=== PATIENT | female | born 1945 | race Caucasian/White ===

== ENCOUNTER 2018-06-01 11:48 | Observation (INO) ==
[2018-06-01 12:50] LABS: Baso % (Auto) 0.7 % (0.0-2.0); Eos % (Auto) 1.2 % (0.0-4.0); Hematocrit 29.2 % (35.0-46.0); Hemoglobin 10.3 gm/dL (11.6-15.3); Lymph # (Auto) 0.5 th/mm3 (1.0-4.8); Lymph % (Auto) 17.7 % (9.0-44.0); Mean Corpuscular HGB Conc 35.3 % (32.0-36.0); Mean Corpuscular Hemoglobin 32.6 pg (27.0-34.0); Mean Corpuscular Volume 92.3 fL (80.0-100.0); Mean Platelet Volume 7.7 fL (7.0-11.0); Mono # (Auto) 0.3 th/mm3 (0.0-0.9); Mono % (Auto) 8.4 % (0.0-8.0); Neut # (Auto) 2.2 th/mm3 (1.8-7.7); Platelet Count 142 th/mm3 (150-450); Red Blood Count 3.16 mil/mm3 (4.00-5.30); Red Cell Distribution Width 17.3 % (11.6-17.2)
[2018-06-01 13:12] LABS: Alanine Aminotransferase 63 U/L (10-53); Albumin 3.6 g/dL (3.4-5.0); Anion Gap 8 meq/L (5-15); Aspartate Aminotransferase 93 U/L (15-37); Blood Urea Nitrogen 20 mg/dL (7-18); Calcium 8.2 mg/dL (8.5-10.1); Carbon Dioxide 20.9 meq/L (21.0-32.0); Chloride 107 meq/L (98-107); Glomerular Filtration Rate 44 mL/min (>89); Glucose,Random 93 mg/dL (74-106); Potassium 4.1 meq/L (3.5-5.1); Sodium 136 meq/L (136-145)
[2018-06-01 13:15] LABS: Alkaline Phosphatase 114 U/L (45-117); Total Protein 6.5 g/dL (6.4-8.2)
--- NOTE | 2018-06-01 13:39 | CT ---
EXAM DATE: 06/01/2018 1:29 PM EDT AGE/SEX: 72 years / Female INDICATIONS: Fall. Laceration to back of head. CLINICAL DATA: This is the patient's initial encounter. Patient reports that signs and symptoms have been present for 1 day and indicates a pain score of 8/10. MEDICAL/SURGICAL HISTORY: None. CABG. RADIATION DOSE: 17.77 CTDI (mGy) COMPARISON: No prior exams available for comparison. TECHNIQUE: Contiguous axial images were obtained using helical multirow detector technique. The vol umetric data was post-processed with multiplanar reconstruction in oblique axial, sagittal, and coron al planes. Using automated exposure control and adjustment of the mA and/or kV according to patient s ize, radiation dose was kept as low as reasonably achievable to obtain optimal diagnostic quality morena ges. DICOM format image data is available electronically for review and comparison. FINDINGS: No acute fracture. Grade 1 anterolisthesis of C4 on C5 likely degenerative. Moderate degenerative austin nge at C5-6-7 with mild encroachment on the lateral recesses. No prevertebral soft tissue swelling. M oderate facet arthropathy. CONCLUSION: 1. No acute findings. Moderate degenerative changes as above. Electronically signed by: Villa Burton MD 06/01/2018 1:38 PM EDT
--- NOTE | 2018-06-01 13:42 | CT ---
EXAM DATE: 06/01/2018 1:28 PM EDT AGE/SEX: 72 years / Female INDICATIONS: Fall. Laceration to back of head. CLINICAL DATA: This is the patient's initial encounter. Patient reports that signs and symptoms have been present for 1 day and indicates a pain score of 8/10. MEDICAL/SURGICAL HISTORY: None. CABG. RADIATION DOSE: 56.36 CTDI (mGy) COMPARISON: No prior exams available for comparison. TECHNIQUE: CT of the head without contrast. Using automated exposure control and adjustment of the mA and/or kV according to patient size, radiation dose was kept as low as reasonably achievable to ob tain optimal diagnostic quality images. DICOM format image data is available electronically for revi ew and comparison. FINDINGS: Cerebrum: A small subcortical hyperdensity is identified in the left parietal lobe posterior to the sylvian fissure. There is no significant mass effect or edema. Cerebral hemispheres are otherwise int act without evidence of acute infarct or additional suspicious hyperdensities. There is no evidence o f mass effect. There are no extra axial fluid collections. Patchy subcortical hypodensities present throughout the cerebral hemispheres especially within the le ft frontal region. Posterior Fossa: The cerebellum and brainstem are intact. The 4th ventricle is midline. The cerebe llopontine angle is unremarkable. Extracranial: A large cephalohematoma is seen along the left parietal bone. Significant right perior bital soft tissue swelling is identified. Skull: The calvaria is intact. No evidence of skull fracture. CONCLUSION: 1. Small hemorrhagic contusion in the left parietal lobe. 2. No evidence of extra-axial hemorrhage or significant mass effect. 3. Large left parietal cephalohematoma. 4. Periventricular cerebral white matter hypodensity characteristic of chronic microvascular ischemi c changes. 5. No evidence of acute infarct. 6. Significant right periorbital soft tissue swelling and hematoma. . Electronically signed by: Rivera Gautam MD 06/01/2018 1:41 PM EDT
--- NOTE | 2018-06-01 15:16 | ED ---
HPI General Chief Complaint: Fall Stated Complaint: Evac/Fall Time Seen by Provider: 06/01/18 12:01 Source: patient Mode of arrival: ambulatory Limitations: no limitations History of Present Illness HPI Narrative: 72-year-old female presents to the emergency department via EMS after she fell today at [facility] after her legs gave out. Reports hitting the back of her head and denies loss of consciousness. Denies neck pain. Denies back pain. Denies chest pain, shortness of breath, abdominal pain, nausea, vomiting. Denies lightheadedness, dizziness. Reports head pain. Says it is not really a headache. Denies anticoagulant therapy. Denies paresthesias, loss of sensation, decreased range of motion, decreased strength all extremity' s. Denies extremity pain. Unknown tetanus status and does not want it updated. Rates pain 05/01. Describes as throbbing. No treatments tried. She had pacemaker placement and open heart surgery. No known allergies. Primary CARE providers Dr. vasquez. Glue Clamp Operator is Dr. Melendez. Has no other medical complaints. No other modifying factors or associated signs and symptoms. Related Data Home Medications Medication Instructions Recorded Confirmed levothyroxine [Synthroid] 0 mcg PO DAILY 06/01/18 06/01/18 Allergies Allergy/AdvReac Type Severity Reaction Status Date / Time No Known Allergies Allergy Unverified 06/01/18 12:08 Review of Systems ROS: all other systems reviewed are negative [facility] Medical History Medical History Pacemaker (Acute) Surgical History Surgical History Hx of heart bypass surgery (Acute) Family History Family History Other Adopted Social History Social History Substance History: No History of Abuse Second Hand Smoke Exposure: Yes Smoking Status: Heavy tobacco smoker Tobacco Type: Cigarettes How Often Do You Have a Drink Containing Alcohol: Monthly or less Recent Travel in [facility] within the Last 8 Weeks: No Recent Out of Country Travel within the Last 8 Weeks: No Immunization History Tetanus Immunization: Unsure Hx Influenza Vaccine This Season: Yes Exam Narrative Exam Narrative: GENERAL: Well-nourished, well-developed elderly, female patient, in no acute distress SKIN: Warm and dry. Left posterior scalp with large hematoma noted; no laceration or open wound noted. HEAD: Atraumatic. Normocephalic. No facial droop noted. Tongue midline. Shoulder shrug equal. EYES: Pupils equal and round at 3 mm with brisk reaction. No scleral icterus. No injection or drainage. PERRLA. EOMI. ENT: Mucosa pink and moist. Airway patent. NECK: Trachea midline. No lymphadenopathy. CARDIOVASCULAR: Regular rate and rhythm. No murmur appreciated. RESPIRATORY: No accessory muscle use. Breath sounds clear and equal bilaterally. No retractions or tachypnea. GASTROINTESTINAL: Abdomen soft, non-tender, nondistended. Positive bowel sounds. No hepato-splenomegaly, or palpable masses. No guarding. MUSCULOSKELETAL: No obvious deformities. No clubbing. No cyanosis. No edema. NEUROLOGICAL: Awake and alert. Oriented 4. No obvious cranial nerve deficits. Motor grossly within normal limits. Normal speech. No ataxia. No mid -line drift. No upper or lower extremity drift. Auto Research Engineer strength equal bilaterally. Sensory intact and equal bilaterally. Moves all extremities. Active plantar and dorsiflexion and strength equal bilaterally. 5/5 strength to all extremities. PSYCHIATRIC: Appropriate mood and affect; insight and judgment normal. Course Initial Documented Vital Signs Temperature 98.0 F 06/01/18 12:06 Pulse Rate 60 06/01/18 12:06 Respiratory Rate 16 06/01/18 12:06 Blood Pressure 164/81 H 06/01/18 12:06 Pulse Oximetry 97 06/01/18 12:06 Last Documented Vital Signs Temperature 98.0 F 06/01/18 12:06 Pulse Rate 60 06/01/18 14:00 Respiratory Rate 16 06/01/18 14:00 Blood Pressure 169/82 H 06/01/18 14:00 Pulse Oximetry 100 06/01/18 14:[address] [facility] Narrative Medical decision making narrative: 72-year-old female with head injury after her legs gave out she fell today. Denies loss of consciousness. Denies neck pain or back pain. Patient arrived via EMS. Denies anticoagulants. Neuro exam is unremarkable. CT head, CT cervical spine, CBC, CMP, EKG ordered. 1516: Head Ct concludes: Small hemorrhagic contusion in the left parietal lobe.2. No evidence of extra-axial hemorrhage or significant mass effect.3. Large left parietal cephalohematoma.4. Periventricular cerebral white matter hypodensity characteristic of chronic microvascular ischemic changes.5. No evidence of acute infarct.6. Significant right periorbital soft tissue swelling and hematoma. Cervical spine CT concluded: No acute findings. Moderate degenerative changes as above. 1525: Call placed to neurosurgeon. 1542: I spoke with , neurosurgeon, and he will come to the bedside to see the patient. Call placed for patient admission. 1622: I spoke with HENNA Lauren and report given for patient admission. Lab Data Result diagrams: 06/01/18 12:30 06/01/18 12:30 Lab Results 06/01/18 06/01/18 Range/Units 12:30 12:30 WBC 3.0 L (4.0-11.0) th/mm3 RBC 3.16 L (4.00-5.30) mil/mm3 Hgb 10.3 L (11.6-15.3) gm/dL Hct 29.2 L (35.0-46.0) % MCV 92.3 (80.0-100.0) fL MCH 32.6 (27.0-34.0) pg MCHC 35.3 (32.0-36.0) % RDW 17.3 H (11.6-17.2) % Plt Count 142 L (150-450) th/mm3 MPV 7.7 (7.0-11.0) fL Neut % (Auto) 72.0 H (16.0-70.0) % Lymph % (Auto) 17.7 (9.0-44.0) % [place] % (Auto) 8.4 H (0.0-8.0) % Eos % (Auto) 1.2 (0.0-4.0) % Baso % (Auto) 0.7 (0.0-2.0) % Neut # (Auto) 2.2 (1.8-7.7) th/mm3 Lymph # (Auto) 0.5 L (1.0-4.8) th/mm3 [place] # (Auto) 0.3 (0.0-0.9) th/mm3 Eos # (Auto) 0.0 (0.0-0.4) th/mm3 Baso # (Auto) 0.0 (0.0-0.2) th/mm3 WBC Differential . Differential Comment Auto diff final Sodium 136 (136-145) meq/L Potassium 4.1 (3.5-5.1) meq/L Chloride 107 (98-107) meq/L Carbon Dioxide 20.9 L (21.0-32.0) meq/L Anion Gap 8 (5-15) meq/L BUN 20 H (7-18) mg/dL Creatinine 1.20 H (0.50-1.00) mg/dL Estimated GFR 44 L (>89) mL/min Random Glucose 93 (74-106) mg/dL Calcium 8.2 L (8.5-10.1) mg/dL Total Bilirubin 0.5 (0.2-1.0) mg/dL AST 93 H (15-37) U/L ALT 63 H (10-53) U/L Alkaline Phosphatase 114 (45-117) U/L Total Protein 6.5 (6.4-8.2) g/dL Albumin 3.6 (3.4-5.0) g/dL Imaging Data Radiologist's impression: Cervical Spine CT 06/01/18 12:08 CONCLUSION: 1. No acute findings. Moderate degenerative changes as above. Head CT 06/01/18 12:08 CONCLUSION: 1. Small hemorrhagic contusion in the left parietal lobe. 2. No evidence of extra-axial hemorrhage or significant mass effect. 3. Large left parietal cephalohematoma. 4. Periventricular cerebral white matter hypodensity characteristic of chronic microvascular ischemic changes. 5. No evidence of acute infarct. 6. Significant right periorbital soft tissue swelling and hematoma. . Discharge Plan Physicians Team ED Provider: Abdi Liz ED Midlevel Provider: Trisha Dillard Primary Care Provider: Fahad Laguna Attending Provider: Loyd Gonzales Other Providers: Patrick Vázquez Rxs /Orders / Referrals /Forms Prescriptions: No Action levothyroxine [Synthroid] 25 mcg Tablet PO DAILY RF: 0 Discharge Interventions Interventions: ED Discharge Assessment Last Done: 06/01/18 12:36 Vital Signs Last Done: 06/01/18 14:00 Status ED Status: Admitted Observation Patient
[2018-06-01] MEDS ORDERED: Acetaminophen 325 MG Tablet PO PRN (16:53)
[2018-06-01] MEDS ORDERED: Bisacodyl 10 MG Supp RECTAL PRN (16:53)
--- NOTE | 2018-06-01 16:53 | P.HP ---
History of Present Illness Primary Care Physician: Fahad Laguna Chief Complaint: Status post fall History of Present Illness: This is a pleasant 72 y/o Female with CAD, status post CABG, who came to Emergency room status post fall, she states her both legs gave out and fell, and on the floor was trying to stand up and was unable to do it, fell other times, also she hit her back area, parieto occipital area with CT showing small Hemorrhagic contusion on the left parietal area. I was asked by ER physician to admit the patient and consult Neurosurgery, on my end will consult cardiology may need to interrogate the Pacemaker. she was brought in by EMS. Review of Systems All other systems reviewed negative except as [facility] - History History Provided By: Patient - Medical History Medical History: Medical History (Last Updated 06/01/18 @ 12:09 by Emilee De Los Santos) Pacemaker - Surgical History Surgical History: Surgical History (Last Reviewed 06/01/18 @ 16:42 by Easton Gonzales MD) Hx of heart bypass surgery - Family History Family History: Family History (Last Updated 06/01/18 @ 16:52 by Easton Gonzales MD) Other Adopted - Tobacco History Second Hand Smoke Exposure: Yes Tobacco Use In Past 30 Days: Yes (smokes one pack of cigarettes daily) Smoking Status: Heavy tobacco smoker Tobacco Type: Cigarettes - Alcohol History How Often Do You Have a Drink Containing Alcohol: Monthly or less - Substance Use History Substance History: No History of Abuse - Travel History Recent Travel in the [place] Within the Last 8 Weeks: No Recent Travel Out of the Country Within the Last 8 Weeks: No - Immunization History Tetanus Immunization: Unsure Hx Influenza Vaccine This Season: Yes Medications and Allergies Allergies Allergy/AdvReac Type Severity Reaction Status Date / Time No Known Allergies Allergy Unverified 06/01/18 12:08 Home Medications Medication Instructions Recorded Confirmed Type levothyroxine [Synthroid] 0 mcg PO DAILY 06/01/18 06/01/18 History Exam Vital signs: Vital Signs 06/01/18 12:06 06/01/18 14:00 Temperature 98.0 F Pulse Rate 60 60 Respiratory Rate 16 16 Blood Pressure 164/81 H 169/82 H Pulse Oximetry 97 100 Intake & Output 05/31/18 06/01/18 06/01/18 18:59 06:59 18:59 Weight 58.967 kg - Constitutional no acute distress, chronically ill appearing - Routine HEENT Exam Head: Present: normocephalic Eye: Present: EOMI, PERRL ENT: Present: mucous membranes moist - Detailed Head Exam Comments: Trauma to the temporo occipital area. w - Routine Chest/Breast/Axilla Exam Chest wall: Present: pacemaker - Routine Respiratory Exam Comments: Decreased breath sounds bilateral, no wheezing or crackles. - Routine Cardiovascular Exam Comments: Regular rate and rhythm, no murmur. - Routine Abdominal Exam Comments: Soft non tender, positive bowel sounds. - Routine Extremities Exam Comments: No clubbing, cyanosis, has multiple ecchymosis on bilateral arms and legs. - Routine Neurological Exam Present: alert, oriented X3, CN II-XII intact, normal reflexes Results - Labs CBC & Chem 7: 06/01/18 12:30 06/01/18 12:30 Labs: Laboratory Results - last 24 hr 06/01/18 06/01/18 12:30 12:30 WBC 3.0 L RBC 3.16 L Hgb 10.3 L Hct 29.2 L MCV 92.3 MCH 32.6 MCHC 35.3 RDW 17.3 H Plt Count 142 L MPV 7.7 Neut % (Auto) 72.0 H Lymph % (Auto) 17.7 [facility] % (Auto) 8.4 H Eos % (Auto) 1.2 Baso % (Auto) 0.7 Neut # (Auto) 2.2 Lymph # (Auto) 0.[address] [facility] # (Auto) 0.3 Eos # (Auto) 0.0 Baso # (Auto) 0.0 WBC Differential . Differential Comment Auto diff final Sodium 136 Potassium 4.1 Chloride 107 Carbon Dioxide 20.9 L Anion Gap 8 BUN 20 H Creatinine 1.20 H Estimated GFR 44 L Random Glucose 93 Calcium 8.2 L Total Bilirubin 0.5 AST 93 H ALT 63 H Alkaline Phosphatase 114 Total Protein 6.5 Albumin 3.6 - Imaging Impressions Cervical Spine CT 06/01/18 12:08 CONCLUSION: 1. No acute findings. Moderate degenerative changes as above. Head CT 06/01/18 12:08 CONCLUSION: 1. Small hemorrhagic contusion in the left parietal lobe. 2. No evidence of extra-axial hemorrhage or significant mass effect. 3. Large left parietal cephalohematoma. 4. Periventricular cerebral white matter hypodensity characteristic of chronic microvascular ischemic changes. 5. No evidence of acute infarct. 6. Significant right periorbital soft tissue swelling and hematoma. . Caprini VTE Risk Assessment Caprini VTE Risk Assessment: No/Low Risk (score <= 1) Caprini Risk Assessment Model: Point Value = 1 Point Value = 2 Point Value = 3 Point Value = 5 Age 41-60 Minor surgery BMI > 25 kg/m2 Swollen legs Varicose veins or History of unexplained or recurrent spontaneous Oral contraceptives or hormone replacement Sepsis (< 1 month) Serious lung disease, including pneumonia (< 1 month) Abnormal pulmonary function Acute myocardial infarction Congestive heart failure (< 1 month) History of inflammatory bowel disease Medical patient at bed rest Age 61-74 Arthroscopic surgery Major open surgery (> 45 min) Laparoscopic surgery (> 45 min) Malignancy Confined to bed (> 72 hours) Immobilizing plaster cast Central venous access Age >= 75 History of VTE Family history of VTE Factor V Leiden Prothrombin [id number] Lupus anticoagulant Anticardiolipin antibodies Elevated serum homocysteine Heparin-induced thrombocytopenia Other congenital or acquired thrombophilia Stroke (< 1 month) Elective arthroplasty Hip, pelvis, or leg fracture Acute spinal cord injury (< 1 month) Prophylaxis Regimen: Total Risk Factor Score Risk Level Prophylaxis Regimen 0-1 Low Early ambulation 2 Moderate Order ONE of the following: *Sequential Compression Device (SCD) *Heparin 5000 units SQ BID 3-4 Higher Order ONE of the following medications: *Heparin 5000 units SQ TID *Enoxaparin/Lovenox 40 mg SQ daily (WT < 150 kg, CrCl > 30 mL/min) *Enoxaparin/Lovenox 30 mg SQ daily (WT < 150 kg, CrCl > 10-29 mL/min) *Enoxaparin/Lovenox 30 mg SQ BID (WT < 150 kg, CrCl > 30 mL/min) AND/OR *Sequential Compression Device (SCD) 5 or more Highest Order ONE of the following medications: *Heparin 5000 units SQ TID (Preferred with Epidurals) *Enoxaparin/Lovenox 40 mg SQ daily (WT < 150 kg, CrCl > 30 mL/min) *Enoxaparin/Lovenox 30 mg SQ daily (WT < 150 kg, CrCl > 10-29 mL/min) *Enoxaparin/Lovenox 30 mg SQ BID (WT < 150 kg, CrCl > 30 mL/min) AND *Sequential Compression Device (SCD) Assessment and Plan - Plan 1. Status post fall with secondary Small hemorrhagic contusion in the left parietal lobe, no evidence of extraaxial hemorrhage or significant mass effect, large left parietal cephalohematoma, Periventricular cerebral white matter hypodensity. consult to Neurosurgery, Follow CT brain no contrast in 24 hours. 2. CAD status post CABG and Pacemaker placement consult point of care specialist may need to interrogate the Pacemaker also to rule out Cardiac reason for the fall 3. Hypothyroidism, continue Hormonal therapy. DVT prophylaxis with SCDs, patient is active.
[2018-06-01] MEDS: Sod Chloride 0.9% Inj 1,000 ML IV.CONT SCH (18:26)
[2018-06-01] MEDS: Senna/Docusate Sodium 8.6/50 MG Tablet PO SCH (21:06)
[2018-06-02 03:45] VITALS: TEMP 98
--- NOTE | 2018-06-02 07:55 | P.CONNS ---
History of Present Illness Service: Neurosurgery Primary Care Provider: Fahad Laguna Chief Complaint: Status post fall History of Present Illness: Ms. Arce is a 72 y/o female who presents after a fall from her "legs giving out." She denies having lost consciousness. She states that she was walking at a store and felt both legs go weak and give out. She attempted to stand, but had persistent weakness. She was transported via EMS. On arrival, her lower extremity strength has returned to normal. Denies headache, numbness, paresthesias, auras, or other areas of weakness. She has a recent history of pacemaker placement. CT head was obtained demonstrating a small hyperdensity in the left parietal lobe consistent with traumatic subarachnoid hemorrhage. Review of Systems Constitutional: Denies headache(s) Eyes: Denies change in vision Cardiovascular: Denies chest pain Respiratory: Denies shortness of breath Gastrointestinal: Denies abdominal pain Genitourinary: Denies urinary incontinence Musculoskeletal: Reports muscle weakness Skin/Breast: Reports wounds Neurologic: Reports unsteadiness Psychiatric: Denies confusion Endocrine: Denies rapid, pounding, or irregular heartbeat Hematologic/Lymphatic: Denies easy bleeding Allergic/Immunologic: Reports other PMFSH - History History Provided By: Patient - Medical History Medical History: Medical History (Last Reviewed 06/02/18 @ 07:49 by Patrick Vázquez MD) Pacemaker - Surgical History Surgical History: Surgical History (Last Reviewed 06/02/18 @ 07:49 by Patrick Vázquez MD) Hx of heart bypass surgery - Family History Family History: Family History (Last Updated 06/01/18 @ 16:52 by Easton Gonzales MD) Other Adopted - Tobacco History Second Hand Smoke Exposure: Yes Tobacco Use In Past 30 Days: Yes Smoking Status: Current every day smoker Tobacco Type: Cigarettes - Alcohol History How Often Do You Have a Drink Containing Alcohol: 2 to 4 times a month - Substance Use History Substance History: No History of Abuse - Travel History Recent Travel in the [place] Within the Last 8 Weeks: No Recent Travel Out of the Country Within the Last 8 Weeks: No - Immunization History Tetanus Immunization: Unsure Hx Influenza Vaccine This Season: Yes Medications and Allergies Active Medications: Active Medications Acetaminophen (Tylenol) 650 mg PO Q4H PRN PRN Reason: Temp > 100.4 Al Hydroxide/Mg Hydroxide (Milk Of Magnesia Liq) 30 ml PO Q12H PRN PRN Reason: Mild Constipation Bisacodyl (Dulcolax Supp) 10 mg RECTAL DAILY PRN PRN Reason: SEVERE CONSITIPATION Clonidine HCl (Catapres) 0.1 mg PO Q6H PRN PRN Reason: SBP > 150 Last Admin: 06/02/18 05:48 Dose: 0.1 mg Sodium Chloride (Ns Inj) 1,000 mls @ 75 mls/hr IV.CONT .[id number] [facility] Last Admin: 06/01/18 18:26 Dose: 75 mls/hr Lactulose (Lactulose Liq) 30 ml PO DAILY PRN PRN Reason: SEVERE CONSITIPATION Levothyroxine Sodium (Synthroid) 25 mcg PO DAILY@0600 [facility] Last Admin: 06/02/18 05:47 Dose: 25 mcg Ondansetron HCl (Zofran Inj) 4 mg IV.PUSH Q6H PRN PRN Reason: NAUSEA OR VOMITING Senna/Docusate Sodium (Kaylan-Colace) 1 tab PO BID [facility] Last Admin: 06/01/18 21:06 Dose: Not Given Sennosides (Senokot) 17.2 mg PO Q12H PRN PRN Reason: Moderate Constipation Allergies Allergy/AdvReac Type Severity Reaction Status Date / Time No Known Allergies Allergy Unverified 06/01/18 12:08 Home Medications Medication Instructions Recorded Confirmed Type levothyroxine [Synthroid] 0 mcg PO DAILY 06/01/18 06/01/18 History Exam Vital signs: Vital Signs 06/01/18 12:06 06/01/18 14:00 06/01/18 20:09 Temperature 98.0 F Pulse Rate 60 60 60 Respiratory Rate 16 16 16 Blood Pressure 164/81 H 169/82 H 145/67 H Pulse Oximetry 97 100 06/01/18 22:32 06/01/18 22:55 06/02/18 00:28 Temperature 98.0 F 98.1 F Pulse Rate 61 62 Respiratory Rate 16 18 Blood Pressure 187/83 H 190/75 H 177/80 H Pulse Oximetry 99 96 06/02/18 03:28 06/02/18 03:44 06/02/18 05:43 Temperature 98.0 F Pulse Rate 60 61 61 Respiratory Rate 18 Blood Pressure 172/77 H 182/79 H Pulse Oximetry 95 Intake & Output 08/10/18 08/11/18 08/11/18 18:59 06:59 18:59 Weight 58.967 kg Other: # Voids 1 - Constitutional no acute distress - Routine HEENT Exam Head: Present: abrasion Eye: Present: EOMI ENT: Present: mucous membranes moist - Routine Neck Exam Present: supple - Routine Chest/Breast/Axilla Exam Chest wall: Present: pacemaker - Routine Respiratory Exam Absent: respiratory distress - Routine Cardiovascular Exam Present: RRR - Routine Neurological Exam Present: alert, oriented X3, CN II-XII intact, sensory deficit, normal reflexes , normal speech 5/5 strength bilateral upper and lower extremities Results - Laboratory Findings CBC and BMP: 06/01/18 12:30 06/01/18 12:30 Abnormal lab findings: Abnormal Labs 06/01/18 06/01/18 12:30 12:30 WBC 3.0 L RBC 3.16 L Hgb 10.3 L Hct 29.2 L RDW 17.3 H Plt Count 142 L Neut % (Auto) 72.0 H [place] % (Auto) 8.4 H Lymph # (Auto) 0.5 L Carbon Dioxide 20.9 L BUN 20 H Creatinine 1.20 H Estimated GFR 44 L Calcium 8.2 L AST 93 H ALT 63 H - Diagnostic Findings Additional findings: CT head demonstrates a small hyperdensity in the left parietal lobe consistent with traumatic subarachnoid hemorrhage. Assessment and Plan - Assessment (1) Traumatic subarachnoid hemorrhage Code(s): S06.6X9A - Traumatic subarachnoid hemorrhage with loss of consciousness of unspecified duration, initial encounter Status: Acute - Plan Ms. Arce is a 72 y/o female who presented with sudden onset of her legs "giving out" with spontaneous mormon of strength after a few minutes while walking at a store. She struck her head upon falling. Denies loss of consciousness. CT head with a small traumatic subarachnoid hemorrhage in the left parietal lobe. There is no mass lesion intracranially evident on CT to explain her transient lower extremity weakness. She has a cardiac history including recent pacemaker placement and a CABG. Plan: No neurosurgical intervention. Admission to medicine for observation and fall workup. Agree with repeat head CT in 24 hours. No role for anti-epileptics. (1) Traumatic subarachnoid hemorrhage Qualifiers: Encounter type: initial encounter Loss of consciousness presence/duration: without LOC Qualified Code(s): S06.6X0A - Traumatic subarachnoid hemorrhage without loss of consciousness, initial encounter
[2018-06-02 08:13] VITALS: RESP 16
[2018-06-02 08:36] LABS: Baso % (Auto) 0.6 % (0.0-2.0); Eos # (Auto) 0.1 th/mm3 (0.0-0.4); Eos % (Auto) 2.1 % (0.0-4.0); Hematocrit 27.7 % (35.0-46.0); Hemoglobin 9.9 gm/dL (11.6-15.3); Lymph # (Auto) 0.6 th/mm3 (1.0-4.8); Lymph % (Auto) 22.1 % (9.0-44.0); Mean Corpuscular HGB Conc 35.8 % (32.0-36.0); Mean Corpuscular Hemoglobin 32.4 pg (27.0-34.0); Mean Corpuscular Volume 90.6 fL (80.0-100.0); Mean Platelet Volume 7.1 fL (7.0-11.0); Mono # (Auto) 0.2 th/mm3 (0.0-0.9); Mono % (Auto) 7.5 % (0.0-8.0); Neut # (Auto) 1.8 th/mm3 (1.8-7.7); Neut % (Auto) 67.7 % (16.0-70.0); Platelet Count 109 th/mm3 (150-450); Red Blood Count 3.06 mil/mm3 (4.00-5.30); Red Cell Distribution Width 17.1 % (11.6-17.2); White Blood Count 2.6 th/mm3 (4.0-11.0)
--- NOTE | 2018-06-02 09:01 | ECG ---
Date Performed: 06/01/2018 Time Performed: 12:16:08 PTAGE: 72 years EKG: ELECTRONIC ATRIAL PACEMAKER ELECTRONIC VENTRICULAR PACEMAKER ABNORMAL RHYTHM ECG INTERPRETA TION BASED ON A DEFAULT AGE OF 40 YEARS PREVIOUS TRACING : 06/01/2018 12.10 DOCTOR: Bib Andrew Interpretating Date/Time 06/02/2018 09:00:10
[2018-06-02 09:03] LABS: Carbon Dioxide 21.8 meq/L (21.0-32.0); Potassium 3.8 meq/L (3.5-5.1)
[2018-06-02] MEDS: Sod Chloride 0.9% Inj 1,000 ML IV.CONT SCH (09:23)
--- NOTE | 2018-06-02 10:29 | P.PN ---
Subjective Interval history: This is a pleasant 72 y/o Female with CAD, status post CABG, who came to Emergency room status post fall, she states her both legs gave out and fell, and on the floor was trying to stand up and was unable to do it, fell other times, also she hit her back area, parieto occipital area with CT showing small Hemorrhagic contusion on the left parietal area. I was asked by ER physician to admit the patient and consult Neurosurgery, on my end will consult cardiology may need to interrogate the Pacemaker. she was brought in by EMS. 06/02: Stable seen in her bedroom, no complaint, no nausea, vomit or diarrhea, if new CT brain taken 24 hours later stable okay to discharge Home per Neurosurgery specialist awaiting final by administrative services specialist asked for Pacemaker Interrogation. Physical Exam Vital signs: Vital Signs 06/01/18 12:06 06/01/18 14:00 06/01/18 20:09 Temperature 98.0 F Pulse Rate 60 60 60 Respiratory Rate 16 16 16 Blood Pressure 164/81 H 169/82 H 145/67 H Pulse Oximetry 97 100 06/01/18 22:32 06/01/18 22:55 06/02/18 00:28 Temperature 98.0 F 98.1 F Pulse Rate 61 62 Respiratory Rate 16 18 Blood Pressure 187/83 H 190/75 H 177/80 H Pulse Oximetry 99 96 06/02/18 03:28 06/02/18 03:44 06/02/18 05:43 Temperature 98.0 F Pulse Rate 60 61 61 Respiratory Rate 18 Blood Pressure 172/77 H 182/79 H Pulse Oximetry 95 06/02/18 08:00 Temperature 98.0 F Pulse Rate 60 Respiratory Rate 16 Blood Pressure 180/78 H Pulse Oximetry 95 Intake & Output 06/01/18 06/02/18 06/02/18 18:59 06:59 18:59 Weight 58.967 kg Other: # Voids 1 - Constitutional no acute distress, average body habitus - Routine HEENT Exam Head: Present: normocephalic Eye: Present: EOMI, PERRL ENT: Present: mucous membranes moist - Detailed Head Exam Comments: posterior edema and ecchymosis on parieto occipital area. - Routine Neck Exam Present: supple - Routine Cardiovascular Exam Present: RRR, S1, S2 - Routine Abdominal Exam Present: soft, normoactive bowel sounds - Routine Extremities Exam Present: full ROM - Routine Skin Exam Present: petechiae - Routine Neurological Exam Present: alert, oriented X3, CN II-XII intact, normal reflexes Results - Labs CBC & Chem 7: 06/02/18 08:11 06/02/18 08:11 Laboratory Results - last 24 hr 06/01/18 06/01/18 06/02/18 12:30 12:30 08:11 WBC 3.0 L 2.6 L RBC 3.16 L 3.06 L Hgb 10.3 L 9.9 L Hct 29.2 L 27.7 L MCV 92.3 90.6 MCH 32.6 32.4 MCHC 35.3 35.8 RDW 17.3 H 17.1 Plt Count 142 L 109 L MPV 7.7 7.1 Neut % (Auto) 72.0 H 67.7 Lymph % (Auto) 17.7 22.1 [place] % (Auto) 8.4 H 7.5 Eos % (Auto) 1.2 2.1 Baso % (Auto) 0.7 0.6 Neut # (Auto) 2.2 1.8 Lymph # (Auto) 0.5 L 0.6 L [place] # (Auto) 0.3 0.2 Eos # (Auto) 0.0 0.1 Baso # (Auto) 0.0 0.0 WBC Differential . . Differential Comment Auto diff final Auto diff final Sodium 136 Potassium 4.1 Chloride 107 Carbon Dioxide 20.9 L Anion Gap 8 BUN 20 H Creatinine 1.20 H Estimated GFR 44 L Random Glucose 93 Calcium 8.2 L Total Bilirubin 0.5 AST 93 H ALT 63 H Alkaline Phosphatase 114 Total Protein 6.5 Albumin 3.6 06/02/18 08:11 WBC RBC Hgb Hct MCV MCH MCHC RDW Plt Count MPV Neut % (Auto) Lymph % (Auto) [place] % (Auto) Eos % (Auto) Baso % (Auto) Neut # (Auto) Lymph # (Auto) [place] # (Auto) Eos # (Auto) Baso # (Auto) WBC Differential Differential Comment Sodium 138 Potassium 3.8 Chloride 108 H Carbon Dioxide 21.8 Anion Gap 8 BUN 17 Creatinine 0.98 Estimated GFR 56 L Random Glucose 93 Calcium 8.0 L Total Bilirubin AST ALT Alkaline Phosphatase Total Protein Albumin - Imaging Impressions Cervical Spine CT 06/01/18 12:08 CONCLUSION: 1. No acute findings. Moderate degenerative changes as above. Head CT 06/01/18 12:08 CONCLUSION: 1. Small hemorrhagic contusion in the left parietal lobe. 2. No evidence of extra-axial hemorrhage or significant mass effect. 3. Large left parietal cephalohematoma. 4. Periventricular cerebral white matter hypodensity characteristic of chronic microvascular ischemic changes. 5. No evidence of acute infarct. 6. Significant right periorbital soft tissue swelling and hematoma. . Assessment and Plan - Plan 1. Status post fall with secondary Small hemorrhagic contusion in the left parietal lobe, no evidence of extraaxial hemorrhage or significant mass effect, large left parietal cephalohematoma, Periventricular cerebral white matter hypodensity. if new CT brain stable discharge from Neurosurgery standpoint. 2. CAD status post CABG and Pacemaker placement consult administrative services specialist may need to interrogate the Pacemaker also to rule out Cardiac reason for the fall, administrative services specialist asking for Pacemaker interrogation. 3. Hypothyroidism, continue Hormonal therapy. DVT prophylaxis with SCDs, patient is active. awaiting Pacemaker interrogation and CT brain for discharge. Code Status: Full Code Discussed Condition With: patient and nurse. Discharge Planning: Discharge after CT brain stable and Cardiology clearance.
--- NOTE | 2018-06-02 10:42 | P.PNNS ---
Subjective Interval history: No acute events overnight. Physical Exam Vital signs: Vital Signs 06/01/18 12:06 06/01/18 14:00 06/01/18 20:09 Temperature 98.0 F Pulse Rate 60 60 60 Respiratory Rate 16 16 16 Blood Pressure 164/81 H 169/82 H 145/67 H Pulse Oximetry 97 100 06/01/18 22:32 06/01/18 22:55 06/02/18 00:28 Temperature 98.0 F 98.1 F Pulse Rate 61 62 Respiratory Rate 16 18 Blood Pressure 187/83 H 190/75 H 177/80 H Pulse Oximetry 99 96 06/02/18 03:28 06/02/18 03:44 06/02/18 05:43 Temperature 98.0 F Pulse Rate 60 61 61 Respiratory Rate 18 Blood Pressure 172/77 H 182/79 H Pulse Oximetry 95 06/02/18 08:00 Temperature 98.0 F Pulse Rate 60 Respiratory Rate 16 Blood Pressure 180/78 H Pulse Oximetry 95 Intake & Output 06/01/18 06/02/18 06/02/18 18:59 06:59 18:59 Weight 58.967 kg Other: # Voids 1 Narrative: Opens eyes spontaneously PERRL EOMI Alert and oriented x3 5/5 strength throughout Left parietal scalp abrasion Assessment and Plan - Assessment (1) Traumatic subarachnoid hemorrhage Code(s): S06.6X9A - Traumatic subarachnoid hemorrhage with loss of consciousness of unspecified duration, initial encounter Status: Acute Qualifiers: Encounter type: initial encounter Loss of consciousness presence/duration: without LOC Qualified Code(s): S06.6X0A - Traumatic subarachnoid hemorrhage without loss of consciousness, initial encounter - Plan Ms. Arce is a 72 y/o female who presented with sudden onset of her legs "giving out" with spontaneous taoist of strength after a few minutes while walking at a store. She struck her head upon falling. Denies loss of consciousness. CT head with a small traumatic subarachnoid hemorrhage in the left parietal lobe. There is no mass lesion intracranially evident on CT to explain her transient lower extremity weakness. She has a cardiac history including recent pacemaker placement and a CABG. Plan: Neurologically stable. Ambulating well this morning. No neurosurgical intervention. Agree with repeat head CT this AM. If stable, clear for discharge from our perspective. No role for anti-epileptics.
[2018-06-02] MEDS: Senna/Docusate Sodium 8.6/50 MG Tablet PO SCH (13:46)
--- NOTE | 2018-06-02 14:55 | MB ---
cc: Lg Arnold MD DATE: 06/02/2018 REASON FOR CONSULTATION: Fall versus syncope. HISTORY OF PRESENT ILLNESS: The patient is a pleasant, though very confused 72-year-old woman who apparently had a pacemaker done about 2 weeks ago, though she is unclear of why it was done or what brand it was. Fortunately, my partner was at [facility] and did research to find it was done by Dr. Melendez, and it was a [employer]mid dual-chamber pacemaker for Mobitz II heart block. The patient has been falling a lot but apparently without loss of consciousness. The patient was in [facility] and apparently fell down as her legs gave out. 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 PAST MEDICAL HISTORY: Unclear as the patient is a very poor historian, but she does apparently have history of a [employer] Omid pacemaker for Mobitz II block put in by Dr. Melendez. CURRENT MEDICATIONS: Clonidine. ALLERGIES: NO KNOWN DRUG ALLERGIES. PHYSICAL EXAMINATION: VITAL SIGNS: Afebrile, pulse 60, respiratory rate 16, BP 161/73, saturating 97% on room air. GENERAL: Pleasant woman who has somewhat of a flat affect and is not particularly participatory in the interview. NECK: No JVD. LUNGS: Clear to auscultation bilaterally. CARDIOVASCULAR: Regular rate and rhythm. No murmurs appreciated. ABDOMEN: Benign. EXTREMITIES: No edema. LABORATORY DATA: White count 2.6, hematocrit 27.7, platelets 109. Sodium 138, potassium 3.8, chloride 108, bicarbonate 20.8, BUN 17, creatinine 0.98, glucose 93. EKG showed an AV pacemaker present. ASSESSMENT AND PLAN: Fall (versus less likely syncope). The patient seemed to have a fall, likely due to her chronic morbidities. Unlikely due to a cardiac etiology given her pacemaker and lack of loss of consciousness, but I will have her pacemaker interrogated which apparently is a St[employer] Omid model. She is quite hypertensive. I will add some antihypertensives to her regimen. Presuming no significant issues on her pacemaker, I will sign off, and she can follow up with her outpatient usability specialist Dr. Melendez upon discharge. Thank you again for the opportunity to participate in the patient's care. MD AKILA Fan/eusebio , 02:29 PM , 02:36 PM
[2018-06-02 16:23] VITALS: BP 160/70; PULSE 61; O2SAT 96
--- NOTE | 2018-06-02 17:20 | CT ---
EXAM DATE: 06/02/2018 5:12 PM EDT AGE/SEX: 72 years / Female INDICATIONS: Fall, laceration to posterior head. Follow up. Evaluate for hemmorhage. CLINICAL DATA: This is the patient's initial encounter. Patient reports that signs and symptoms have been present for 2 days and indicates a pain score of 3/10. MEDICAL/SURGICAL HISTORY: None. CABG. RADIATION DOSE: 35.53 CTDI (mGy) COMPARISON: . TECHNIQUE: CT of the head without contrast. Using automated exposure control and adjustment of the mA and/or kV according to patient size, radiation dose was kept as low as reasonably achievable to ob tain optimal diagnostic quality images. DICOM format image data is available electronically for revi ew and comparison. FINDINGS: Roughly 16mm faint parenchymal increased attenuation seen left parietal lobe not significantly change d. No new bleed. No mass, mass effect or midline shift. Chronic white matter changes are noted. No ev idence of an acute ischemic event. Left parietal scalp contusion is smaller. No fracture demonstrated. CONCLUSION: 1. No significant change faint intra-axial density of the left parietal lobe, presumably a small par enchymal hemorrhage. No mass effect or midline shift. 2. No new bleed. 3. Chronic white matter changes. . Electronically signed by: Fahad Bello MD 06/02/2018 5:19 PM EDT
--- NOTE | 2018-06-02 19:15 | P.DS ---
Date of admission: 06/01/18 16:24 Primary care physician: Fahad Laguna Attending physician on discharge: aEston Gonzales Anticipated date of discharge: 06/02/18 Brief History from admission: This is a pleasant 72 y/o Female with CAD, status post CABG, who came to Emergency room status post fall, she states her both legs gave out and fell, and on the floor was trying to stand up and was unable to do it, fell other times, also she hit her back area, parieto occipital area with CT showing small Hemorrhagic contusion on the left parietal area. I was asked by ER physician to admit the patient and consult Neurosurgery, on my end will consult cardiology may need to interrogate the Pacemaker. she was brought in by EMS. Seen in her bedroom stable seen by Neurosurgery okay to discharge no changes on new CT 24 hours control, as per Cardiology Pacemaker interrogated and no pathology found, okay from water resource specialist to discharge home. DS: Summary Hospital Course: This is a pleasant 72 y/o Female with CAD, status post CABG, who came to Emergency room status post fall, she states her both legs gave out and fell, and on the floor was trying to stand up and was unable to do it, fell other times, also she hit her back area, parieto occipital area with CT showing small Hemorrhagic contusion on the left parietal area. I was asked by ER physician to admit the patient and consult Neurosurgery, on my end will consult cardiology may need to interrogate the Pacemaker. she was brought in by EMS. 06/02: Stable seen in her bedroom, no complaint, no nausea, vomit or diarrhea, if new CT brain taken 24 hours later stable okay to discharge Home per Neurosurgery specialist awaiting final by water resource specialist asked for Pacemaker Interrogation. Cervical Spine CT 06/01/18 12:08 CONCLUSION: 1. No acute findings. Moderate degenerative changes as above. Head CT 06/01/18 12:08 CONCLUSION: 1. Small hemorrhagic contusion in the left parietal lobe. 2. No evidence of extra-axial hemorrhage or significant mass effect. 3. Large left parietal cephalohematoma. 4. Periventricular cerebral white matter hypodensity characteristic of chronic microvascular ischemic changes. 5. No evidence of acute infarct. 6. Significant right periorbital soft tissue swelling and hematoma. . Assessment and Plan - Plan 1. Status post fall with secondary Small hemorrhagic contusion in the left parietal lobe, no evidence of extraaxial hemorrhage or significant mass effect, large left parietal cephalohematoma, Periventricular cerebral white matter hypodensity. if new CT brain stable discharge from Neurosurgery standpoint. 2. CAD status post CABG and Pacemaker placement consult water resource specialist may need to interrogate the Pacemaker also to rule out Cardiac reason for the fall, water resource specialist asking for Pacemaker interrogation. 3. Hypothyroidism, continue Hormonal therapy. DVT prophylaxis with SCDs, patient is active. awaiting Pacemaker interrogation and CT brain for discharge. Code Status: Full Code Discussed Condition With: patient and nurse. Discharge Planning: Discharge Home, was cleared by Neurosurgery and water resource specialist. - Time Spent with Patient Total time spent providing and/or coordinating discharge services: Less than 30 minutes - Quality: VTE Deep Vein Thrombosis/Pulmonary Embolism Present on Admission: No Exam Vital signs: Vital Signs 06/01/18 20:09 06/01/18 22:32 06/01/18 22:55 Temperature 98.0 F Pulse Rate 60 61 Respiratory Rate 16 16 Blood Pressure 145/67 H 187/83 H 190/75 H Pulse Oximetry 99 06/02/18 00:28 06/02/18 03:28 06/02/18 03:44 Temperature 98.1 F 98.0 F Pulse Rate 62 60 61 Respiratory Rate 18 18 Blood Pressure 177/80 H 172/77 H Pulse Oximetry 96 95 06/02/18 05:43 06/02/18 08:00 06/02/18 12:00 Temperature 98.0 F 98.0 F Pulse Rate 61 60 60 Respiratory Rate 16 16 Blood Pressure 182/79 H 180/78 H 161/73 H Pulse Oximetry 95 97 06/02/18 16:00 Temperature 98.0 F Pulse Rate 61 Respiratory Rate 16 Blood Pressure 160/70 H Pulse Oximetry 96 Intake & Output 06/02/18 06/02/18 06/03/18 06:59 18:59 06:59 Other: # Voids 1 3 Narrative: - Constitutional no acute distress, average body habitus - Routine HEENT Exam Head: Present: normocephalic Eye: Present: EOMI, PERRL ENT: Present: mucous membranes moist - Detailed Head Exam Comments: posterior edema and ecchymosis on parieto occipital area. - Routine Neck Exam Present: supple - Routine Cardiovascular Exam Present: RRR, S1, S2 - Routine Abdominal Exam Present: soft, normoactive bowel sounds - Routine Extremities Exam Present: full ROM - Routine Skin Exam Present: petechiae - Routine Neurological Exam Present: alert, oriented X3, CN II-XII intact, normal reflexes Results Procedures completed during hospitalization: None Labs on day of discharge: Labs from last 24 hours 06/02/18 06/02/18 08:11 08:11 WBC 2.6 L RBC 3.06 L Hgb 9.9 L Hct 27.7 L MCV 90.6 MCH 32.4 MCHC 35.8 RDW 17.1 Plt Count 109 L MPV 7.1 Neut % (Auto) 67.7 Lymph % (Auto) 22.1 [place] % (Auto) 7.5 Eos % (Auto) 2.1 Baso % (Auto) 0.6 Neut # (Auto) 1.8 Lymph # (Auto) 0.6 L [place] # (Auto) 0.2 Eos # (Auto) 0.1 Baso # (Auto) 0.0 WBC Differential . Differential Comment Auto diff final Sodium 138 Potassium 3.8 Chloride 108 H Carbon Dioxide 21.8 Anion Gap 8 BUN 17 Creatinine 0.98 Estimated GFR 56 L Random Glucose 93 Calcium 8.0 L - Impressions ITS Impressions Cervical Spine CT 06/01/18 12:08 CONCLUSION: 1. No acute findings. Moderate degenerative changes as above. Head CT 06/02/18 17:05 CONCLUSION: 1. No significant change faint intra-axial density of the left parietal lobe, presumably a small parenchymal hemorrhage. No mass effect or midline shift. 2. No new bleed. 3. Chronic white matter changes. . Discharge Plan - Discharge Disposition Patient Disposition: 01 Discharge Home - Discharge Condition Condition: Stable - Discharge Order Discharge Orders: Discharge Order (Routine); Ordered 06/02/18 Ordered By: Easton Gonzales - Physicians Team Primary Care Provider: Fahad Laguna Attending Provider: Easton Gonzales Other Providers: Patrick Vázquez MD ; Lg Arnold MD
== END 2018-06-02 20:00 | disposition home or self-care (01) ==
LOC: NEPD 11:48 → NEPGCP 11:48 → NEDA 16:24 → INTOOBSV 16:24 → NEPGCP 22:05
PROVIDERS: ADMIT Hospitalist; ATTEND Hospitalist
DX: I44.1 Atrioventricular block, second degree; Z95.1 Presence of aortocoronary bypass graft; E03.9 Hypothyroidism, unspecified; W19.XXXA Unspecified fall, initial encounter; S06.6X0A Traumatic subarachnoid hemorrhage without loss of consciousness, initial encounter; R29.6 Repeated falls; Z95.0 Presence of cardiac pacemaker; F17.210 Nicotine dependence, cigarettes, uncomplicated; I25.10 Atherosclerotic heart disease of native coronary artery without angina pectoris

== ENCOUNTER 2018-06-11 08:50 | Observation (INO) ==
[2018-06-11] MEDS ORDERED: Morphine Inj 4 MG/ML Vial IV.PUSH ONE (09:56)
[2018-06-11] MEDS ORDERED: hydrALAZINE HCl Inj 20 MG/ML Vial IV.PUSH ONE (09:56)
[2018-06-11 10:31] LABS: Baso % (Auto) 0.5 % (0.0-2.0); Eos % (Auto) 0.1 % (0.0-4.0); Hematocrit 27.4 % (35.0-46.0); Hemoglobin 9.7 gm/dL (11.6-15.3); Lymph # (Auto) 0.2 th/mm3 (1.0-4.8); Lymph % (Auto) 4.1 % (9.0-44.0); Mean Corpuscular HGB Conc 35.3 % (32.0-36.0); Mean Corpuscular Hemoglobin 32.7 pg (27.0-34.0); Mean Corpuscular Volume 92.6 fL (80.0-100.0); Mono # (Auto) 0.2 th/mm3 (0.0-0.9); Mono % (Auto) 3.6 % (0.0-8.0); Neut # (Auto) 4.9 th/mm3 (1.8-7.7); Neut % (Auto) 91.7 % (16.0-70.0); Platelet Count 120 th/mm3 (150-450); Red Blood Count 2.96 mil/mm3 (4.00-5.30); Red Cell Distribution Width 17.6 % (11.6-17.2); White Blood Count 5.4 th/mm3 (4.0-11.0)
[2018-06-11] MEDS ORDERED: hydrALAZINE 50 MG Tablet PO ONE (10:33)
[2018-06-11 10:46] LABS: Calcium 8.3 mg/dL (8.5-10.1); Carbon Dioxide 17.5 meq/L (21.0-32.0); Potassium 4.1 meq/L (3.5-5.1)
--- NOTE | 2018-06-11 11:08 | CT ---
EXAM DATE: 06/11/2018 10:55 AM EDT AGE/SEX: 73 years / Female INDICATIONS: Fell 10 days ago, still complaining of headache CLINICAL DATA: This is the patient's initial encounter. Patient reports that signs and symptoms have been present for 1 day and indicates a pain score of 4/10. MEDICAL/SURGICAL HISTORY: None. CABG. RADIATION DOSE: 35.74 CTDI (mGy) COMPARISON: [facility] [place] HEAD W/O CONTRAST, 06/02/2018. . TECHNIQUE: CT of the head without contrast. Using automated exposure control and adjustment of the mA and/or kV according to patient size, radiation dose was kept as low as reasonably achievable to ob tain optimal diagnostic quality images. DICOM format image data is available electronically for revi ew and comparison. FINDINGS: Cerebrum: Moderate diffuse cerebral atrophy. The ventricles are normal for degree of atrophy. Mild-t o-moderate periventricular white matter hypodensities. No evidence of midline shift, mass lesion, hem orrhage or acute infarction. No extraaxial fluid collections are seen. Posterior Fossa: The cerebellum and brainstem are intact. The 4th ventricle is midline. The cerebe llopontine angle is unremarkable. Extracranial: The visualized portion of the orbits is intact. Large left posterior scalp hematoma. Skull: The calvaria is intact. No evidence of skull fracture. CONCLUSION: 1. Large left posterior scalp hematoma without underlying skull fracture or acute intracranial abnor mality. 2. Senescent changes. . Electronically signed by: Esteban Mcgarry MD 06/11/2018 11:07 AM EDT
--- NOTE | 2018-06-11 11:40 | ED ---
HPI General Chief complaint: Fall Stated complaint: Fall Time Seen by Provider: 06/11/18 09:35 History of Present Illness HPI narrative: This is a 73-year-old female who is status post traumatic subarachnoid hemorrhage on 810 of this month, who presents today with bleeding from her scalp since discharge on the . The patient states that she is not been able to get the bleeding to stop. She says it soaking her bed close as well as her close. She also reports associated headache and dizziness. The patient is an extremely poor historian and is not able to give clear history of what medications she is on. No further history could be elicited from the patient. Related Data Home Medications Medication Instructions Recorded Confirmed levothyroxine [Synthroid] 0 mcg PO DAILY 06/01/18 06/01/18 Allergies Allergy/AdvReac Type Severity Reaction Status Date / Time No Known Allergies Allergy Unverified 06/01/18 12:08 Review of Systems ROS Unobtainable ROS Unobtainable: other (Extremely poor historian) ROS: all other systems reviewed are negative Constitutional Denies chills and Denies fever(s) Eyes Denies blurry vision and Denies diplopia ENT Reports headache(s), Denies neck pain and Reports other (Drainage from the left parietal scalp.) Cardiovascular Denies chest pain and Denies edema Respiratory Denies cough and Denies dyspnea Gastrointestinal Denies nausea and Denies vomiting Genitourinary Denies urinary frequency and Denies dysuria Musculoskeletal Reports system reviewed and no additional complaints, except as docu Integumentary/Breasts Reports wounds (Left scalp cephalhematoma.) and Reports other (Bleeding/oozing from the left scalp hematoma) Neurologic Reports confusion and Reports headache(s) Hematologic/Lymphatic Reports easy bleeding Comments: Unknown whether she is on blood thinners or not. [facility] Family History Family History Other Adopted Social History Social History Substance History: No History of Abuse Second Hand Smoke Exposure: Yes Smoking Status: Current every day smoker Tobacco Type: Cigarettes How Often Do You Have a Drink Containing Alcohol: Never Recent Travel in [place] within the Last 8 Weeks: No Recent Out of Country Travel within the Last 8 Weeks: No Immunization History Tetanus Immunization: <5 Years Exam Narrative Exam Narrative: GENERAL: Well-developed well-nourished female who has obvious oozing from her scalp. SKIN: Focused skin assessment warm/dry. HEAD: Normocephalic. Patient has a large hematoma that is oozing blood in her left parietal scalp. It appears that the hematoma has eroded through the skin. EYES: No scleral icterus. No injection or drainage. ENT: No nasal bleeding or discharge. Mucous membranes pink and moist. NECK: Trachea midline. Supple. CARDIOVASCULAR: Regular rate and rhythm. No murmur appreciated. RESPIRATORY: No accessory muscle use. Clear to auscultation. Breath sounds equal bilaterally. GASTROINTESTINAL: Abdomen soft, non-tender, nondistended. Hepatic and splenic margins not palpable. MUSCULOSKELETAL: No obvious deformities. No clubbing. No cyanosis. No edema. NEUROLOGICAL: Awake and mildly confused. No obvious cranial nerve deficits. Motor grossly within normal limits. Normal speech. Course Initial Documented Vital Signs Temperature 98.3 F 06/11/18 09:01 Pulse Rate 72 06/11/18 09:01 Respiratory Rate 16 06/11/18 09:01 Blood Pressure 226/98 H 06/11/18 09:01 Pulse Oximetry 100 06/11/18 09:01 Last Documented Vital Signs Temperature 98.3 F 06/11/18 09:01 Pulse Rate 85 06/11/18 14:36 Respiratory Rate 18 06/11/18 14:36 Blood Pressure 197/89 H 06/11/18 14:36 Pulse Oximetry 95 06/11/18 14:36 Medical Decision Making MDM Narrative Medical decision making narrative: This is a 73-year-old female who status post traumatic subarachnoid hemorrhage 10 days ago, presents here with complaints of oozing from her hematoma on her scalp. Patient states it will not stop bleeding. She states that she is had it stay in her bed closed. She reports associated headache. Patient's blood pressure was also noted to be extremely elevated on arrival. Her hemoglobin has dropped 1 point since being discharged on the 11th of this month. She has been given 50 mg of p.o. hydralazine. Her blood pressure still remained above 200 systolic. She has been given Lopressor 5 mg IV 1 dose. Case was discussed with Dr. Gonzales, [place] [facility], who agrees with the admission. She will likely need a plastics consult for the scalp hematoma that appears to have eroded through the scalp. Medical Screen Exam Complete: Yes Emergency Medical Condition: Yes Differential Diagnosis Differential Diagnosis: Scalp erosion versus scalp hematoma liquefication versus coagulopathy Lab Data Result diagrams: 06/11/18 10:00 06/11/18 10:00 Lab Results 06/11/18 06/11/18 06/11/18 Range/Units 10:00 10:00 10:20 WBC 5.4 (4.0-11.0) th/mm3 RBC 2.96 L (4.00-5.30) mil/mm3 Hgb 9.7 L (11.6-15.3) gm/dL Hct 27.4 L (35.0-46.0) % MCV 92.6 (80.0-100.0) fL MCH 32.7 (27.0-34.0) pg MCHC 35.3 (32.0-36.0) % RDW 17.6 H (11.6-17.2) % Plt Count 120 L (150-450) th/mm3 MPV 7.0 (7.0-11.0) fL Neut % (Auto) 91.7 H (16.0-70.0) % Lymph % (Auto) 4.1 L (9.0-44.0) % [place] % (Auto) 3.6 (0.0-8.0) % Eos % (Auto) 0.1 (0.0-4.0) % Baso % (Auto) 0.5 (0.0-2.0) % Neut # (Auto) 4.9 (1.8-7.7) th/mm3 Lymph # (Auto) 0.2 L (1.0-4.8) th/mm3 [place] # (Auto) 0.2 (0.0-0.9) th/mm3 Eos # (Auto) 0.0 (0.0-0.4) th/mm3 Baso # (Auto) 0.0 (0.0-0.2) th/mm3 WBC Differential . Differential Comment Auto diff final PT 11.4 (9.8-11.6) sec INR 1.1 Ratio APTT 30.6 H (24.3-30.1) sec Sodium 134 L (136-145) meq/L Potassium 4.1 (3.5-5.1) meq/L Chloride 103 (98-107) meq/L Carbon Dioxide 17.5 L (21.0-32.0) meq/L Anion Gap 14 (5-15) meq/L BUN 25 H (7-18) mg/dL Creatinine 1.16 H (0.50-1.00) mg/dL Estimated GFR 46 L (>89) mL/min Random Glucose 104 (74-106) mg/dL Calcium 8.3 L (8.5-10.1) mg/dL Imaging Data Radiologist's impression: Head CT 06/11/18 09:56 CONCLUSION: 1. Large left posterior scalp hematoma without underlying skull fracture or acute intracranial abnormality. 2. Senescent changes. . Discharge Plan Discharge Disposition Patient Disposition: 30 Still Patient Discharge Details Diagnosis: Hypertensive urgency, Hematoma of left parietal scalp, Anemia Physicians Team ED Provider: Home Harrison Primary Care Provider: Fahad Laguna Attending Provider: Easton Gonzales Other Providers: Austyn Liu Status ED Status: Admitted Patient
[2018-06-11] MEDS ORDERED: Metoprolol Inj 5 MG/5 ML Vial IV.PUSH ONE (12:11)
[2018-06-11 12:19] LABS: Activated Partial Thrombo Time 30.6 sec (24.3-30.1); INR 1.1 Ratio; Prothrombin Time 11.4 sec (9.8-11.6)
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
[2018-06-11] MEDS ORDERED: Bisacodyl 10 MG Supp RECTAL PRN (12:40)
[2018-06-11] MEDS: Sod Chloride 0.9% Inj 1,000 ML IV.CONT SCH (13:30)
[2018-06-11] MEDS: amLODIPine 5 MG Tablet PO SCH (13:30)
[2018-06-11] MEDS ORDERED: Gelatin Size 100 Topical Foam TOPICAL ONE (14:24)
[2018-06-11 16:00] LABS: Baso % (Auto) 0.3 % (0.0-2.0); Hematocrit 25.6 % (35.0-46.0); Hemoglobin 8.7 gm/dL (11.6-15.3); Lymph # (Auto) 0.3 th/mm3 (1.0-4.8); Lymph % (Auto) 2.7 % (9.0-44.0); Mean Corpuscular HGB Conc 33.9 % (32.0-36.0); Mean Corpuscular Hemoglobin 31.7 pg (27.0-34.0); Mean Corpuscular Volume 93.4 fL (80.0-100.0); Mean Platelet Volume 7.2 fL (7.0-11.0); Mono # (Auto) 0.7 th/mm3 (0.0-0.9); Mono % (Auto) 5.6 % (0.0-8.0); Neut % (Auto) 91.4 % (16.0-70.0); Platelet Count 140 th/mm3 (150-450); Red Blood Count 2.74 mil/mm3 (4.00-5.30); Red Cell Distribution Width 17.5 % (11.6-17.2); White Blood Count 12.1 th/mm3 (4.0-11.0)
[2018-06-12] MEDS: Sod Chloride 0.9% Inj 1,000 ML IV.CONT SCH ×2 (07:51→16:48)
[2018-06-12 08:36] LABS: Calcium 7.8 mg/dL (8.5-10.1); Carbon Dioxide 20.4 meq/L (21.0-32.0); Potassium 3.7 meq/L (3.5-5.1)
[2018-06-12] MEDS: amLODIPine 5 MG Tablet PO SCH (09:24)
--- NOTE | 2018-06-12 11:21 | P.PNIM ---
Subjective Interval history: Patient reports she is feeling okay. Discussed with RN. Physical Exam Vital signs: Vital Signs 06/11/18 11:48 06/11/18 12:43 06/11/18 13:21 Temperature Pulse Rate 78 80 80 Respiratory Rate 17 18 17 Blood Pressure 210/90 H 215/95 H 215/90 H Pulse Oximetry 98 96 100 06/11/18 14:36 06/11/18 16:14 06/11/18 17:14 Temperature Pulse Rate 85 77 74 Respiratory Rate 18 17 17 Blood Pressure 197/89 H 154/69 H 168/75 H Pulse Oximetry 95 96 98 06/11/18 18:31 06/11/18 19:00 06/11/18 23:00 Temperature 98.1 F 98.5 F Pulse Rate 100 H 73 70 Respiratory Rate 18 18 Blood Pressure 160/77 H 148/74 H Pulse Oximetry 90 L 06/12/18 03:00 06/12/18 07:00 Temperature 98.5 F 98.5 F Pulse Rate 71 68 Respiratory Rate 16 14 Blood Pressure 148/74 H 168/80 H Pulse Oximetry 93 L 97 Intake & Output 06/11/18 06/12/18 06/12/18 18:59 06:59 18:59 Intake Total 800 / 800 800 / 800 Output Total 650 / 650 Balance 150 / 150 800 / 800 Weight 57.606 kg 57.7 kg Intake: IV 800 / 800 NS Inj 1,000 ML @ 75 mls/hr IV. 800 / 800 CONT .[id number] RADHA Rx#:[id number] Oral 800 / 800 Output: Urine 650 / 650 Other: # Incontinent Voids 1 Weight On Admission 57.606 kg Narrative: GENERAL: Elderly female in no acute distress. HEENT: Head is wrapped with dressing and KATHIE. minimal blood sipping through the dressing. CARDIOVASCULAR: Normal rate and regular rhythm without murmurs, gallops, or rubs. RESPIRATORY: Good respiratory efforts. Breath sounds equal and clear to auscultation bilaterally. GASTROINTESTINAL: Abdomen soft, non-tender, non-distended. Normal active bowel sounds MUSCULOSKELETAL: Extremities without cyanosis, or edema. NEURO: awake and alert. PSYCH: Appropriate mood and affect. Results - Labs CBC & Chem 7: 06/11/18 15:32 06/12/18 06:30 Laboratory Results - last 24 hr 0806/11/18 06/12/18 10:20 15:32 06:30 WBC 12.1 H D RBC 2.74 L Hgb 8.7 L Hct 25.6 L MCV 93.4 MCH 31.7 MCHC 33.9 RDW 17.5 H Plt Count 140 L MPV 7.2 Neut % (Auto) 91.4 H Lymph % (Auto) 2.7 L [place] % (Auto) 5.6 Eos % (Auto) 0.0 Baso % (Auto) 0.3 Neut # (Auto) 11.0 H Lymph # (Auto) 0.3 L [place] # (Auto) 0.7 Eos # (Auto) 0.0 Baso # (Auto) 0.0 WBC Differential . Differential Comment Auto diff final PT 11.4 INR 1.1 APTT 30.6 H Sodium 137 Potassium 3.7 Chloride 105 Carbon Dioxide 20.4 L Anion Gap 12 BUN 20 H Creatinine 0.84 Estimated GFR 67 L Random Glucose 84 Calcium 7.8 L Assessment and Plan - Plan 73-year-old female with: 1. Left temporo occipital scalp Hematoma with bleeding and necrotic tissue. -Plastic surgery consulted. Patient has been seen by plastic surgery with debridement and dressing change at bedside per nursing. Patient needs further surgical intervention, to be done on . 2. Hypertensive Urgency on presentation. It is unclear if the patient takes medications at home. At times she seems forgetful. Continue amlodipine 5 mg and Coreg 3.125 mg BID and follow. 3. CAD status post CABG and Pacemaker placement Cardiology consult performed and recommended for discharge 4. Hypothyroidism, continue Hormonal therapy. 5. Anemia secondary to blood loss: -Continue to follow H&H. Transfuse as needed. DVT prophylaxis with SCDs.
--- NOTE | 2018-06-12 19:06 | P.CON ---
History of Present Illness Service: Plastic surgery Consult date: 06/12/18 Primary Care Provider: Fahad Laguna Chief Complaint: bleeding on left scalp hematoma. History of Present Illness: History largely obtained from chart as patient very confused as to her history, i.e. she was unable to remember that she lives in [place] 72 y/o Female with CAD, status post CABG, who was discharged from this facility due to status post fall with secondary subdural hematoma. She was stable and discharged after clearance by Neurosurgery and Cardiology, came back to ER the patient continue bleeding from scalp since discharged on 06/02/18. The patient states that she is not been able to get the bleeding to stop. Plastic surgery consulted as patient was left posterior scalp hematoma, with overlying necrosis Review of Systems All other systems reviewed negative except as stated in HPI Medication list reviewed [facility] - History History Provided By: Patient - Medical History Medical History: Medical History (Last Reviewed 06/02/18 @ 07:49 by Patrick Vázquez MD) Pacemaker - Surgical History Surgical History: Surgical History (Last Reviewed 06/02/18 @ 07:49 by Patrick Vázquez MD) Hx of heart bypass surgery - Family History Family History: Family History (Last Updated 06/01/18 @ 16:52 by Easton Gonzales MD) Other Adopted - Tobacco History Second Hand Smoke Exposure: Yes Tobacco Use In Past 30 Days: Yes Smoking Status: Current every day smoker Tobacco Type: Cigarettes - Alcohol History How Often Do You Have a Drink Containing Alcohol: Never - Substance Use History Substance History: No History of Abuse - Travel History Recent Travel in the [place] Within the Last 8 Weeks: No Recent Travel Out of the Country Within the Last 8 Weeks: No - Immunization History Tetanus Immunization: <5 Years [facility] - History History Provided By: Patient - Medical History Medical History: Medical History (Last Reviewed 06/12/18 @ 08:00 by Delaney Summers) Pacemaker - Surgical History Surgical History: Surgical History (Last Reviewed 06/02/18 @ 07:49 by Patrick Vázquez MD) Hx of heart bypass surgery - Family History Family History: Family History (Last Updated 06/01/18 @ 16:52 by Easton Gonzales MD) Other Adopted - Tobacco History Second Hand Smoke Exposure: Yes Tobacco Use In Past 30 Days: Yes Smoking Status: Current every day smoker Tobacco Type: Cigarettes - Alcohol History How Often Do You Have a Drink Containing Alcohol: Monthly or less - Substance Use History Substance History: Unable to Obtain - Travel History Recent Travel in the [place] Within the Last 8 Weeks: No Recent Travel Out of the Country Within the Last 8 Weeks: No - Immunization History Tetanus Immunization: Unable to Assess Hx Influenza Vaccine This Season: Unable to Assess Medications and Allergies Active Medications: Active Medications Acetaminophen (Tylenol) 650 mg PO Q4H PRN PRN Reason: Temp > 100.4 Al Hydroxide/Mg Hydroxide (Milk Of Magnesia Liq) 30 ml PO Q12H PRN PRN Reason: Mild Constipation Amlodipine Besylate (Norvasc) 5 mg PO DAILY [facility] Last Admin: 06/12/18 09:24 Dose: 5 mg Bisacodyl (Dulcolax Supp) 10 mg RECTAL DAILY PRN PRN Reason: SEVERE CONSITIPATION Carvedilol (Coreg) 3.125 mg PO BID [facility] Last Admin: 06/12/18 09:24 Dose: 3.125 mg Sodium Chloride (Ns Inj) 1,000 mls @ 75 mls/hr IV.CONT .[id number] [facility] Last Admin: 06/12/18 16:48 Dose: 75 mls/hr Lactulose (Lactulose Liq) 30 ml PO DAILY PRN PRN Reason: SEVERE CONSITIPATION Sennosides (Senokot) 17.2 mg PO Q12H PRN PRN Reason: Moderate Constipation Sodium Chloride (Ns Flush) 2 ml IV.FLUSH PRN PRN PRN Reason: FLUSH AFTER USING IV ACCESS Allergies Allergy/AdvReac Type Severity Reaction Status Date / Time No Known Allergies Allergy Unverified 06/01/18 12:08 Home Medications Medication Instructions Recorded Confirmed Type levothyroxine [Synthroid] 0 mcg PO DAILY 06/01/18 06/01/18 History Physical Exam Vital signs: Vital Signs 06/11/18 23:00 06/12/18 03:00 06/12/18 07:00 Temperature 98.5 F 98.5 F 98.5 F Pulse Rate 70 71 68 Respiratory Rate 18 16 14 Blood Pressure 148/74 H 148/74 H 168/80 H Pulse Oximetry 90 L 93 L 97 06/12/18 11:00 06/12/18 15:00 Temperature 98.9 F 98.8 F Pulse Rate 68 72 Respiratory Rate 14 16 Blood Pressure 155/72 H 143/69 H Pulse Oximetry 95 96 Intake & Output 06/12/18 06/12/18 06/13/18 06:59 18:59 06:59 Intake Total 800 / 800 1280 / 1280 Output Total 650 / 650 0 / 0 Balance 150 / 150 1280 / 1280 Weight 57.7 kg Intake: IV 800 / 800 NS Inj 1,000 ML @ 75 mls/hr IV. 800 / 800 CONT .[id number] RADHA Rx#:[id number] Oral 800 / 800 480 / 480 Output: Urine 650 / 650 0 / 0 Other: # Incontinent Voids 1 Narrative: No apparent anxiety moist mucous membranes PERRLA skin without rash respirations nonlabored moves all 4 extremities to command Left lateral occipital scalp with 3-4 cm necrotic eschar Eschar removed, revealing underlying hematoma Hematoma removed Positive soft tissue covering over bone though extensive ecchymoses and edema Edges of wound or nonviable Assessment and Plan - Assessment (1) Open scalp wound Code(s): S01.00XA - Unspecified open wound of scalp, initial encounter Status : Acute (2) Hematoma of left parietal scalp Code(s): S00.03XA - Contusion of scalp, initial encounter Status: Acute - Plan 73-year-old female with left lateral occipital scalp wound following fall with subsequent hematoma and presumed pressure necrosis of overlying skin Risks benefits alternative treatments discussed All questions answered and the patient expressed understanding Patient elected to assume the risks of operative washout with complex wound repair versus adjacent tissue rearrangement of the above wound Informed consent obtained Will plan for OR this
[2018-06-13] MEDS: Acetaminophen 325 MG Tablet PO PRN ×4 (03:00→21:23)
[2018-06-13] MEDS: Sod Chloride 0.9% Inj 1,000 ML IV.CONT SCH (04:24)
--- NOTE | 2018-06-13 10:32 | P.PNIM ---
Subjective Interval history: Patient reports she is feeling okay. No new issues. Bleeding seems to have stopped. Physical Exam Vital signs: Vital Signs 06/12/18 11:00 06/12/18 15:00 06/12/18 19:00 Temperature 98.9 F 98.8 F 98.2 F Pulse Rate 68 72 75 Respiratory Rate 14 16 16 Blood Pressure 155/72 H 143/69 H 161/79 H Pulse Oximetry 95 96 97 06/12/18 23:00 06/13/18 03:00 06/13/18 04:00 Temperature 98.5 F 98 F Pulse Rate 69 78 Respiratory Rate 16 16 Blood Pressure 151/71 H 173/77 H 143/74 H Pulse Oximetry 97 97 06/13/18 07:00 Temperature 98.3 F Pulse Rate 66 Respiratory Rate 14 Blood Pressure 153/74 H Pulse Oximetry 100 Intake & Output 06/12/18 06/13/18 06/13/18 18:59 06:59 18:59 Intake Total 1280 / 1280 240 / 240 Output Total 0 / 0 575 / 575 Balance 1280 / 1280 -335 / -335 Weight 57.8 kg Intake: IV 800 / 800 NS Inj 1,000 ML @ 75 mls/hr IV. 800 / 800 CONT .[id number] RADHA Rx#:[id number] Oral 480 / 480 240 / 240 Output: Urine 0 / 0 575 / 575 Results - Labs CBC & Chem 7: 06/11/18 15:32 06/12/18 06:30 Assessment and Plan - Plan 73-year-old female with: 1. Left temporo occipital scalp Hematoma with bleeding and necrotic tissue. -Plastic surgery consulted. Patient has been seen by plastic surgery with debridement and dressing change at bedside per nursing. Patient needs further surgical intervention, to be done tomorrow. 2. Hypertensive Urgency on presentation. It is unclear if the patient takes medications at home. At times she seems forgetful. Continue amlodipine 5 mg and Coreg 3.125 mg BID and follow. 3. CAD status post CABG and Pacemaker placement Cardiology consult performed and recommended for discharge 4. Hypothyroidism, continue Hormonal therapy. 5. Anemia secondary to blood loss: -Continue to follow H&H. Transfuse as needed. DVT prophylaxis with SCDs.
[2018-06-13] MEDS: amLODIPine 5 MG Tablet PO SCH (11:26)
[2018-06-14] MEDS ORDERED: Chlorhexidine Gluconate 2% 1 Pack (2 Cloths) TOPICAL SCH (04:45)
[2018-06-14] MEDS ORDERED: Sodium Chlor 0.9% Inj 500 ML IV.SIG SCH (05:00)
[2018-06-14] MEDS: amLODIPine 5 MG Tablet PO SCH (08:41)
[2018-06-14 08:57] LABS: Mean Corpuscular HGB Conc 35.4 % (32.0-36.0); Mean Corpuscular Hemoglobin 32.4 pg (27.0-34.0); Mean Corpuscular Volume 91.5 fL (80.0-100.0); Platelet Count 165 th/mm3 (150-450); Red Blood Count 2.11 mil/mm3 (4.00-5.30); Red Cell Distribution Width 17.3 % (11.6-17.2); White Blood Count 8.1 th/mm3 (4.0-11.0)
[2018-06-14 09:02] LABS: Hematocrit 19.3 % (35.0-46.0); Hemoglobin 6.8 gm/dL (11.6-15.3)
[2018-06-14 09:22] LABS: Calcium 7.8 mg/dL (8.5-10.1); Carbon Dioxide 21.8 meq/L (21.0-32.0); Potassium 3.8 meq/L (3.5-5.1)
--- NOTE | 2018-06-14 10:28 | P.PNIM ---
Subjective Interval history: This is a pleasant 72 y/o Female with CAD, status post CABG, who was discharged from this facility due to status post fall with secondary subdural Hematoma she was stable and discharged after clearance by Neurosurgery and Cardiology, came back to ER the patient continue bleeding from Scalp since discharged on 06/02/18, The patient states that she is not been able to get the bleeding to stop. She also reports associated headache and dizziness. Seen in Emergency room and discussed with Doctor Harrison, she will need evaluation by Plastic surgery and evaluate for probable Surgical procedure on scalp to remove clots and debridement of her necrotic tissue. 06-12 Patient reports she is feeling okay. Discussed with RN. 06-13 Patient reports she is feeling okay. No new issues. Bleeding seems to have stopped. 06-14 TO HAVE SURGERY ON SCALP TODAY WITH PLASTICS DAVONTE RN AND PATIENT AND CM AM LABS Physical Exam Vital signs: Vital Signs 06/13/18 11:00 06/13/18 15:00 06/13/18 21:16 Temperature 97.6 F 99.3 F 98.5 F Pulse Rate 71 79 Respiratory Rate 16 16 16 Blood Pressure 171/79 H 159/49 H 177/103 H Pulse Oximetry 99 97 06/13/18 21:53 06/14/18 00:30 06/14/18 04:00 Temperature 98.8 F 97.9 F Pulse Rate 68 80 Respiratory Rate 16 18 17 Blood Pressure 128/68 160/75 H Pulse Oximetry 98 97 Intake & Output 06/13/18 06/14/18 06/14/18 18:59 06:59 18:59 Intake Total 1959 1275 / 1275 Balance 1959 1275 / 1275 Weight 58 kg Intake: IV 1000 / 1000 NS Inj 1,000 ML @ 75 mls/hr IV. 1000 / 1000 CONT .[id number] RADHA Rx#:[id number] Oral 960 / 960 1275 / 1275 Other: # Voids 2 2 # Bowel Movements 0 Narrative: GENERAL: Elderly female in no acute distress. HEENT: Head is wrapped with dressing and KATHIE. minimal blood sipping through the dressing. CARDIOVASCULAR: Normal rate and regular rhythm without murmurs, gallops, or rubs. RESPIRATORY: Good respiratory efforts. Breath sounds equal and clear to auscultation bilaterally. GASTROINTESTINAL: Abdomen soft, non-tender, non-distended. Normal active bowel sounds MUSCULOSKELETAL: Extremities without cyanosis, or edema. NEURO: awake and alert. PSYCH: Appropriate mood and affect. Results - Labs CBC & Chem 7: 06/14/18 08:40 06/14/18 08:40 Laboratory Results - last 24 hr 06/14/18 06/14/18 08:40 08:40 WBC 8.1 RBC 2.11 L Hgb 6.8 L* Hct 19.3 L* MCV 91.5 MCH 32.4 MCHC 35.4 RDW 17.3 H Plt Count 165 MPV 7.0 Sodium 132 L Potassium 3.8 Chloride 98 Carbon Dioxide 21.8 Anion Gap 12 BUN 18 Creatinine 0.85 Estimated GFR 66 L Random Glucose 98 Calcium 7.8 L - Imaging ITS Impressions Head CT 06/11/18 09:56 CONCLUSION: 1. Large left posterior scalp hematoma without underlying skull fracture or acute intracranial abnormality. 2. Senescent changes. . Assessment and Plan - Plan 73-year-old female with: 1. Left temporo occipital scalp Hematoma with bleeding and necrotic tissue. -Plastic surgery consulted. Patient has been seen by plastic surgery with debridement and dressing change at bedside per nursing. Patient needs further surgical intervention, TO HAVE SURGERY TODAY WITH PLASTICS 2. Hypertensive Urgency on presentation. It is unclear if the patient takes medications at home. At times she seems forgetful. Continue amlodipine 5 mg and Coreg 3.125 mg BID and follow. 3. CAD status post CABG and Pacemaker placement Cardiology consult performed and recommended for discharge 4. Hypothyroidism, continue Hormonal therapy. 5. Anemia secondary to blood loss: -Continue to follow H&H. Transfuse as needed. ANEMIA WILL TRANSFUSE 2 UNITS TODAY 8- DVT prophylaxis with SCDs. Code Status: FULL CODE Discussed Condition With: DAVONTE RN AND PT AND CM Discharge Planning: PENDING CLEARANCE BY ALL
[2018-06-14] MEDS ORDERED: Sodium Chlor 0.9% Inj 250 ML IV.SIG SCH (11:00)
[2018-06-14] MEDS ORDERED: Lidocaine PF 1% Inj 5 ML Syringe INFILTRATN ONE (12:00)
[2018-06-14] MEDS ORDERED: Glycopyrrolate Inj 1 MG/5 ML Syringe IV.PUSH ONE (12:00)
[2018-06-14] MEDS ORDERED: Neostigmine Inj 5 MG/5 ML Syringe IV.PUSH ONE (12:00)
[2018-06-14] MEDS ORDERED: Phenylephrine/NS 1000 MCG/10ML Syringe IV.PUSH ONE (12:00)
[2018-06-14] MEDS ORDERED: Sodium Chlor 0.9% Inj 500 ML IV.SIG ONE (12:00)
[2018-06-14] MEDS ORDERED: Lidocaine 1%/Epinephrine 1:100,000 Inj 20 ML Vial ONE (15:14)
[2018-06-14] MEDS ORDERED: Bupivacaine/Epinephrine PF Inj 0.25% 10 ML Vial ONE (15:39)
[2018-06-14 17:17] LABS: ABG Base Excess -6.5 mmol/L (-2-2); ABG PCO2 43 mmHg (38-42); ABG PO2 304 mmHG (61-120)
[2018-06-14 17:45] LABS: Baso % (Auto) 0.3 % (0.0-2.0); Eos % (Auto) 0.1 % (0.0-4.0); Hematocrit 21.8 % (35.0-46.0); Hemoglobin 7.7 gm/dL (11.6-15.3); Lymph # (Auto) 0.5 th/mm3 (1.0-4.8); Mean Corpuscular HGB Conc 35.2 % (32.0-36.0); Mean Corpuscular Hemoglobin 31.8 pg (27.0-34.0); Mean Corpuscular Volume 90.2 fL (80.0-100.0); Mean Platelet Volume 6.6 fL (7.0-11.0); Mono # (Auto) 0.4 th/mm3 (0.0-0.9); Mono % (Auto) 5.8 % (0.0-8.0); Neut # (Auto) 6.4 th/mm3 (1.8-7.7); Neut % (Auto) 86.8 % (16.0-70.0); Platelet Count 136 th/mm3 (150-450); Red Blood Count 2.41 mil/mm3 (4.00-5.30); Red Cell Distribution Width 15.8 % (11.6-17.2); White Blood Count 7.4 th/mm3 (4.0-11.0)
[2018-06-14] MEDS ORDERED: fentaNYL Citrate Inj 100 MCG/2 ML Ampul ONE (18:20)
[2018-06-14] MEDS ORDERED: *Labetalol HCl Inj 100 MG/20 ML Vial PERIprocedural Use ONLY IV.PUSH ONE (18:32)
[2018-06-14] MEDS ORDERED: Morphine Sulfate Inj 2 MG/ML Vial IV.PUSH PRN (19:23)
[2018-06-15 08:49] LABS: Baso % (Auto) 0.1 % (0.0-2.0); Hemoglobin 7.6 gm/dL (11.6-15.3); Lymph # (Auto) 0.3 th/mm3 (1.0-4.8); Lymph % (Auto) 5.7 % (9.0-44.0); Mean Corpuscular Hemoglobin 32.2 pg (27.0-34.0); Mean Corpuscular Volume 89.1 fL (80.0-100.0); Mean Platelet Volume 6.4 fL (7.0-11.0); Mono # (Auto) 0.4 th/mm3 (0.0-0.9); Mono % (Auto) 7.2 % (0.0-8.0); Neut # (Auto) 4.5 th/mm3 (1.8-7.7); Platelet Count 110 th/mm3 (150-450); Red Blood Count 2.36 mil/mm3 (4.00-5.30); Red Cell Distribution Width 16.3 % (11.6-17.2); White Blood Count 5.2 th/mm3 (4.0-11.0)
[2018-06-15 08:58] LABS: Albumin 2.8 g/dL (3.4-5.0); Anion Gap 13 meq/L (5-15); Aspartate Aminotransferase 122 U/L (15-37); Blood Urea Nitrogen 16 mg/dL (7-18); Calcium 7.7 mg/dL (8.5-10.1); Carbon Dioxide 21.4 meq/L (21.0-32.0); Chloride 99 meq/L (98-107); Glomerular Filtration Rate 69 mL/min (>89); Glucose,Random 105 mg/dL (74-106); Magnesium 1.5 mg/dL (1.5-2.5); Potassium 3.7 meq/L (3.5-5.1); Sodium 133 meq/L (136-145)
[2018-06-15] MEDS: amLODIPine 5 MG Tablet PO SCH (09:00)
[2018-06-15 09:08] LABS: Alanine Aminotransferase 93 U/L (10-53); Alkaline Phosphatase 84 U/L (45-117); Free T4 (Free Thyroxine) 0.54 ng/dL (0.76-1.46); Phosphorus 3.1 mg/dL (2.5-4.9); Total Protein 5.8 g/dL (6.4-8.2)
[2018-06-15 09:20] LABS: Mean Corpuscular HGB Conc 36.1 % (32.0-36.0)
[2018-06-15 10:11] LABS: Lymphocytes 11 % (9-44); Monocytes 4 % (0-8); Platelet Estimate Normal (Normal); Platelet Morphology Normal (Normal); Tallied Nucleated RBC 1 (0-0); Toxic Granulation 1+
--- NOTE | 2018-06-15 11:52 | P.PNIM ---
Subjective Interval history: This is a pleasant 72 y/o Female with CAD, status post CABG, who was discharged from this facility due to status post fall with secondary subdural Hematoma she was stable and discharged after clearance by Neurosurgery and Cardiology, came back to ER the patient continue bleeding from Scalp since discharged on 06/02/18, The patient states that she is not been able to get the bleeding to stop. She also reports associated headache and dizziness. Seen in Emergency room and discussed with Doctor Harrison, she will need evaluation by Plastic surgery and evaluate for probable Surgical procedure on scalp to remove clots and debridement of her necrotic tissue. 06-12 Patient reports she is feeling okay. Discussed with RN. 06-13 Patient reports she is feeling okay. No new issues. Bleeding seems to have stopped. 06-14 TO HAVE SURGERY ON SCALP TODAY WITH PLASTICS DAVONTE RN AND PATIENT AND CM AM LABS 06-15 HAD COMPLEX CLOSURE OF LEFT POSTERIOR OCCIPITAL SCALP WOUND BY DR ABRAMS ON 06-14 REMAINS SOMEWHAT CONFUSED STATES LIVES ALONE WITH CAT AND DOG DW BROTHER TIERRA [phone] LONG DISCUSSION WILL INTERROGATE PACER WILL GET CT OF LUMBAR AND THORACIC - HAS PACER CANNOT DO MRIS Physical Exam Vital signs: Vital Signs 06/14/18 18:07 06/14/18 18:15 06/14/18 18:30 Temperature 98.7 F Pulse Rate 110 H 104 H 91 H Respiratory Rate 20 24 22 Blood Pressure 190/85 H 186/87 H 198/92 H Pulse Oximetry 99 100 95 06/14/18 18:45 06/14/18 19:00 06/14/18 19:45 Temperature 98.2 F Pulse Rate 90 76 69 Respiratory Rate 20 24 20 Blood Pressure 162/69 H 149/68 H 148/67 H Pulse Oximetry 96 94 L 96 06/15/18 00:00 06/15/18 02:23 06/15/18 04:00 Temperature 98.2 F 98.2 F Pulse Rate 64 72 Respiratory Rate 16 18 18 Blood Pressure 165/73 H 171/75 H Pulse Oximetry 99 100 06/15/18 04:11 06/15/18 06:00 06/15/18 08:00 Temperature 98 F Pulse Rate 70 Respiratory Rate 18 18 18 Blood Pressure 160/73 H Pulse Oximetry 100 06/15/18 10:49 Temperature 98.2 F Pulse Rate 80 Respiratory Rate 20 Blood Pressure 117/56 L Pulse Oximetry 96 Intake & Output 06/14/18 06/15/18 06/15/18 18:59 06:59 18:59 Intake Total 1600 / 1600 100 / 100 Output Total 100 / 100 Balance 1500 / 1500 100 / 100 Weight 58.4 kg Intake: IV 100 / 100 100 / 100 Ancef Inj 1,000 MG In NS Inj 100 / 100 100 / 100 100 ML @ 200 mls/hr IV.SIG Q8H RADHA Rx#:[id number] Anesthesia Amount 1500 / 1500 Output: Estimated Blood Loss 100 / 100 Other: # Voids 2 Narrative: GENERAL: Elderly female in no acute distress.HEAD IS DRESSED HEENT: Head is wrapped with dressing and KATHIE. minimal blood sipping through the dressing. CARDIOVASCULAR: Normal rate and regular rhythm without murmurs, gallops, or rubs. RESPIRATORY: Good respiratory efforts. Breath sounds equal and clear to auscultation bilaterally. GASTROINTESTINAL: Abdomen soft, non-tender, non-distended. Normal active bowel sounds MUSCULOSKELETAL: Extremities without cyanosis, or edema. NEURO: awake and alert. PSYCH: Appropriate mood and affect. Results - Labs CBC & Chem 7: 06/15/18 06:45 06/15/18 06:45 Laboratory Results - last 24 hr 06/14/18 06/14/18 06/14/18 11:45 11:45 11:45 WBC RBC Hgb Hct MCV MCH MCHC RDW Plt Count MPV Prelim Diff (Auto) Neut % (Auto) Lymph % (Auto) [place] % (Auto) Eos % (Auto) Baso % (Auto) Neut # (Auto) Lymph # (Auto) [place] # (Auto) Eos # (Auto) Baso # (Auto) WBC Differential Seg Neuts % (Manual) Band Neuts % (Manual) Lymphocytes % (Manual) Monocytes % (Manual) Abs Neuts (Manual) Nucleated RBCs/100 WBC Differential Comment Toxic Granulation Platelet Estimate Platelet Morphology Puncture Site Patient Temperature O2 Saturation ABG pH ABG pCO2 ABG pO2 ABG HCO3 ABG O2 Content ABG Base Excess ABG Methemoglobin Kristopher Test Hemoglobin Carboxyhemoglobin O2 Delivery Device Vent Setting Inspired O2 Critical Value Sodium Potassium Chloride Carbon Dioxide Anion Gap BUN Creatinine Estimated GFR Random Glucose Calcium Phosphorus Magnesium Total Bilirubin AST ALT Alkaline Phosphatase Total Protein Albumin TSH Free T4 Blood Type O Negative Antibody Screen Positive H Antibody Identification Non-Specific Agglutinin Antigen Identification Fya Antigen - NEGATIVE MTS Gel Crossmatch See Detail 06/14/18 06/14/18 06/14/18 12:33 16:58 17:30 WBC 7.4 RBC 2.41 L Hgb 7.7 L Hct 21.8 L MCV 90.2 MCH 31.8 MCHC 35.2 RDW 15.8 Plt Count 136 L MPV 6.6 L Prelim Diff (Auto) Neut % (Auto) 86.8 H Lymph % (Auto) 7.0 L [place] % (Auto) 5.8 Eos % (Auto) 0.1 Baso % (Auto) 0.3 Neut # (Auto) 6.4 Lymph # (Auto) 0.5 L [place] # (Auto) 0.4 Eos # (Auto) 0.0 Baso # (Auto) 0.0 WBC Differential . Seg Neuts % (Manual) Band Neuts % (Manual) Lymphocytes % (Manual) Monocytes % (Manual) Abs Neuts (Manual) Nucleated RBCs/100 WBC Differential Comment Auto diff final Toxic Granulation Platelet Estimate Platelet Morphology Puncture Site Drawn in or Patient Temperature 98.6 O2 Saturation 97 ABG pH 7.27 L* ABG pCO2 43 H ABG pO2 304 H ABG HCO3 19 L ABG O2 Content 17.6 ABG Base Excess -6.5 L ABG Methemoglobin 1.5 Kristopher Test Or Hemoglobin 12.5 Carboxyhemoglobin 1.5 O2 Delivery Device Or Vent Setting Or Inspired O2 21 Critical Value Yes Sodium Potassium Chloride Carbon Dioxide Anion Gap BUN Creatinine Estimated GFR Random Glucose Calcium Phosphorus Magnesium Total Bilirubin AST ALT Alkaline Phosphatase Total Protein Albumin TSH Free T4 Blood Type Antibody Screen Antibody Identification Antigen Identification MTS Gel Crossmatch See Detail 06/15/18 06/15/18 06:45 06:45 WBC 5.2 RBC 2.36 L Hgb 7.6 L Hct 21.0 L MCV 89.1 MCH 32.2 MCHC 36.1 H RDW 16.3 Plt Count 110 L MPV 6.4 L Prelim Diff (Auto) Slide review pending Neut % (Auto) 87.0 H Lymph % (Auto) 5.7 L [place] % (Auto) 7.2 Eos % (Auto) 0.0 Baso % (Auto) 0.1 Neut # (Auto) 4.5 Lymph # (Auto) 0.3 L [place] # (Auto) 0.4 Eos # (Auto) 0.0 Baso # (Auto) 0.0 WBC Differential Manual diff final Seg Neuts % (Manual) 78 H Band Neuts % (Manual) 7 H Lymphocytes % (Manual) 11 Monocytes % (Manual) 4 Abs Neuts (Manual) 4.4 Nucleated RBCs/100 WBC 1 H Differential Comment . Toxic Granulation 1+ H Platelet Estimate Normal Platelet Morphology Normal Puncture Site Patient Temperature O2 Saturation ABG pH ABG pCO2 ABG pO2 ABG HCO3 ABG O2 Content ABG Base Excess ABG Methemoglobin Kristopher Test Hemoglobin Carboxyhemoglobin O2 Delivery Device Vent Setting Inspired O2 Critical Value Sodium 133 L Potassium 3.7 Chloride 99 Carbon Dioxide 21.4 Anion Gap 13 BUN 16 Creatinine 0.82 Estimated GFR 69 L Random Glucose 105 Calcium 7.7 L Phosphorus 3.1 Magnesium 1.5 Total Bilirubin 1.1 H AST 122 H ALT 93 H Alkaline Phosphatase 84 Total Protein 5.8 L Albumin 2.8 L TSH 9.150 H Free T4 0.54 L Blood Type Antibody Screen Antibody Identification Antigen Identification MTS Gel Crossmatch Assessment and Plan - Plan 73-year-old female with: 1. Left temporo occipital scalp Hematoma with bleeding and necrotic tissue. -Plastic surgery consulted. Patient has been seen by plastic surgery with debridement and dressing change at bedside per nursing. Patient needs further surgical intervention, TO HAVE SURGERY TODAY WITH PLASTICS 2. Hypertensive Urgency on presentation. It is unclear if the patient takes medications at home. At times she seems forgetful. Continue amlodipine 5 mg and Coreg 3.125 mg BID and follow. 3. CAD status post CABG and Pacemaker placement Cardiology consult performed and recommended for discharge 4. Hypothyroidism, continue Hormonal therapy. 5. Anemia secondary to blood loss: -Continue to follow H&H. Transfuse as needed. ANEMIA WILL TRANSFUSE 2 UNITS TODAY 8 DVT prophylaxis with SCDs. WILL GET CT OF LUMBAR AND THORACICS DUE TO PACER Code Status: FULL CODE Discussed Condition With: RN AND PT AND CM AND BROTHER TIERRA AT [phone] Discharge Planning: PENDING CLEARANCE BY ALL WILL NEED SNF
[2018-06-15 13:48] LABS: Hemoglobin A1c 4.4 % (4.3-6.0)
--- NOTE | 2018-06-15 15:45 | CT ---
EXAM DATE: 06/15/2018 3:27 PM EDT AGE/SEX: 73 years / Female INDICATIONS: Trauma, fall. CLINICAL DATA: This is the patient's initial encounter. Patient reports that signs and symptoms have been present for 1 week and indicates a pain score of 3/10. MEDICAL/SURGICAL HISTORY: Cardiovascular disease. Pacemaker. RADIATION DOSE: 20.99 CTDI (mGy) COMPARISON: No prior exams available for comparison. TECHNIQUE: Contiguous axial images were acquired using a multirow detector CT scanner without contra st. Multiplanar reconstruction in the sagittal and coronal planes was performed. Using automated exp osure control and adjustment of the mA and/or kV according to patient size, radiation dose was kept a s low as reasonably achievable to obtain optimal diagnostic quality images. DICOM format image data is available electronically for review and comparison. FINDINGS: No significant compression deformities are seen. Slight degenerative changes are present in the disc space and facets throughout . Small stones are present in the visualized right kidney. Chronic vascu lar atherosclerotic calcifications are seen involving the aorta. No definite fracture is identified f or technique. T1-T2: No appreciable compromise to the thecal sac, spinal cord, or the exiting nerve roots are seen . The neural foramina are grossly patent bilaterally. T2-T3: No appreciable compromise to the thecal sac, spinal cord, or the exiting nerve roots are seen . The neural foramina are grossly patent bilaterally. T3-T4: No appreciable compromise to the thecal sac, spinal cord, or the exiting nerve roots are seen . The neural foramina are grossly patent bilaterally. T4-T5: No appreciable compromise to the thecal sac, spinal cord, or the exiting nerve roots are seen . The neural foramina are grossly patent bilaterally. T5-T6: No appreciable compromise to the thecal sac, spinal cord, or the exiting nerve roots are seen . The neural foramina are grossly patent bilaterally. T6-T7: No appreciable compromise to the thecal sac, spinal cord, or the exiting nerve roots are seen . The neural foramina are grossly patent bilaterally. T7-T8: No appreciable compromise to the thecal sac, spinal cord, or the exiting nerve roots are seen . The neural foramina are grossly patent bilaterally. T8-T9: No appreciable compromise to the thecal sac, spinal cord, or the exiting nerve roots are seen . The neural foramina are grossly patent bilaterally. T9-T10: No appreciable compromise to the thecal sac, spinal cord, or the exiting nerve roots are see n. The neural foramina are grossly patent bilaterally. T10-T11: No appreciable compromise to the thecal sac, spinal cord, or the exiting nerve roots are se en. The neural foramina are grossly patent bilaterally. T11-T12: No appreciable compromise to the thecal sac, spinal cord, or the exiting nerve roots are se en. The neural foramina are grossly patent bilaterally. T12-L1: No appreciable compromise to the thecal sac, spinal cord, or the exiting nerve roots are see n. The neural foramina are grossly patent bilaterally. CONCLUSION: Chronic degenerative changes without any significant compromise to the exiting nerve amber ts or the thecal sac. Electronically signed by: James Vazquez MD 06/15/2018 3:44 PM EDT
--- NOTE | 2018-06-15 15:47 | CT ---
EXAM DATE: 06/15/2018 3:33 PM EDT AGE/SEX: 73 years / Female INDICATIONS: Trauma, fall. CLINICAL DATA: This is the patient's initial encounter. Patient reports that signs and symptoms have been present for 1 week and indicates a pain score of 3/10. MEDICAL/SURGICAL HISTORY: Cardiovascular disease. Pacemaker. RADIATION DOSE: 20.45 CTDI (mGy) COMPARISON: [facility] – [place] CERVICAL SPINE W/O CONTRAST, 06/01/2018. . TECHNIQUE: Contiguous axial images were acquired with a multirow detector CT scanner without contras t. Multiplanar reconstructions in the sagittal and coronal plane were also performed. Using automate d exposure control and adjustment of the mA and/or kV according to patient size, radiation dose was k ept as low as reasonably achievable to obtain optimal diagnostic quality images. DICOM format image data is available electronically for review and comparison. FINDINGS: Vertebrae: Normal vertebral body height. There is no evidence for vertebral compression. Alignment: Normal. No subluxation. T12-L1: The thecal sac has a normal diameter. No evidence of disc bulge or protrusion. The neural foramina are patent bilaterally. L1-L2: Mild disc bulging present with minimal bilateral neural foraminal encroachment. L2-L3: Generalized disc bulging evident causing flattening the anterior thecal space with moderate d egenerative changes in the facets. There is moderate bilateral neural foraminal encroachment. L3-L4: Generalized disc bulging eccentric to the right with moderate right-sided neural foraminal en croachment. Moderate degenerative changes in the facets. L4-L5: Generalized disc bulging worse on the right with significant right-sided neural foraminal enc roachment. Moderate left-sided neural foraminal encroachment. Moderate spinal stenosis with extensive facet disease. L5-S1: Mild disc bulging causing minimal flattening the anterior thecal space with mild bilateral ne ural foraminal encroachment. SI joints are normal Iliac stent grafts are noted. Bilateral renal artery calcifications and renal calculi. CONCLUSION: 1. There is no evidence for acute compression. Degenerative changes as above with radiographically s ignificant spinal stenosis at L4-5. Electronically signed by: Coleman Whitley MD 06/15/2018 3:46 PM EDT
[2018-06-16 07:16] LABS: Baso % (Auto) 0.4 % (0.0-2.0); Lymph # (Auto) 0.5 th/mm3 (1.0-4.8); Lymph % (Auto) 10.3 % (9.0-44.0); Mean Corpuscular Hemoglobin 32.2 pg (27.0-34.0); Mono # (Auto) 0.5 th/mm3 (0.0-0.9); Mono % (Auto) 9.3 % (0.0-8.0); Neut # (Auto) 3.8 th/mm3 (1.8-7.7); Platelet Count 118 th/mm3 (150-450); Red Blood Count 2.25 mil/mm3 (4.00-5.30); Red Cell Distribution Width 16.1 % (11.6-17.2); White Blood Count 4.8 th/mm3 (4.0-11.0)
[2018-06-16 07:24] LABS: Mean Corpuscular HGB Conc 36.2 % (32.0-36.0)
[2018-06-16 07:30] LABS: Hemoglobin 7.2 gm/dL (11.6-15.3)
[2018-06-16 07:55] LABS: Albumin 2.4 g/dL (3.4-5.0); Calcium 7.3 mg/dL (8.5-10.1); Carbon Dioxide 25.3 meq/L (21.0-32.0); Magnesium 1.6 mg/dL (1.5-2.5); Potassium 3.1 meq/L (3.5-5.1)
[2018-06-16 08:09] LABS: Free T4 (Free Thyroxine) 0.46 ng/dL (0.76-1.46); Phosphorus 2.6 mg/dL (2.5-4.9); Total Protein 5.4 g/dL (6.4-8.2)
[2018-06-16 08:25] LABS: Eosinophils 1 % (0-4); Lymphocytes 7 % (9-44); Monocytes 4 % (0-8); Platelet Morphology Normal (Normal)
[2018-06-16] MEDS ORDERED: Acetaminophen 325 MG Tablet PO PRN (08:55)
[2018-06-16] MEDS ORDERED: Sodium Chlor 0.9% Inj 250 ML IV.SIG SCH (09:00)
[2018-06-16] MEDS ORDERED: Potassium Chloride 25 MEQ Effervescent Tablet PO ONE (09:00)
--- NOTE | 2018-06-16 11:46 | P.PNIM ---
Subjective Interval history: This is a pleasant 72 y/o Female with CAD, status post CABG, who was discharged from this facility due to status post fall with secondary subdural Hematoma she was stable and discharged after clearance by Neurosurgery and Cardiology, came back to ER the patient continue bleeding from Scalp since discharged on 06/02/18, The patient states that she is not been able to get the bleeding to stop. She also reports associated headache and dizziness. Seen in Emergency room and discussed with Doctor Harrison, she will need evaluation by Plastic surgery and evaluate for probable Surgical procedure on scalp to remove clots and debridement of her necrotic tissue. 06-12 Patient reports she is feeling okay. Discussed with RN. 06-13 Patient reports she is feeling okay. No new issues. Bleeding seems to have stopped. 06-14 TO HAVE SURGERY ON SCALP TODAY WITH PLASTICS DW RN AND PATIENT AND CM AM LABS 06-15 HAD COMPLEX CLOSURE OF LEFT POSTERIOR OCCIPITAL SCALP WOUND BY DR ABRAMS ON 06-14 REMAINS SOMEWHAT CONFUSED STATES LIVES ALONE WITH CAT AND DOG DW BROTHER TIERRA [phone] LONG DISCUSSION WILL INTERROGATE PACER WILL GET CT OF LUMBAR AND THORACIC - HAS PACER CANNOT DO MRIS 06-16 NOTED TO BE ANEMIC WILL TRANSFUSE 2 MORE UNITS PRBC DW RN AND PT AND CM CTS OF LUMBAR AND THORACIC ARE STABLE Physical Exam Vital signs: Vital Signs 06/15/18 16:00 06/15/18 20:00 06/16/18 00:00 Temperature 98 F 99.0 F 99.3 F Pulse Rate 80 78 82 Respiratory Rate 18 18 18 Blood Pressure 120/60 118/70 159/72 H Pulse Oximetry 94 L 94 L 94 L 06/16/18 04:00 06/16/18 08:00 Temperature 98.2 F 98.0 F Pulse Rate 73 80 Respiratory Rate 18 18 Blood Pressure 173/73 H 115/59 L Pulse Oximetry 91 L 97 Intake & Output 06/15/18 06/16/18 06/16/18 18:59 06:59 18:59 Intake Total 2099 / 2099 1240 / 1240 Balance 2099 1240 / 1240 Intake: IV 200 / 200 1000 / 1000 LR 1000 mL Inj 1,000 ML @ 30 1000 / 1000 mls/hr IV.SIG .Q24H RADHA Rx#: [id number] Ancef Inj 1,000 MG In NS Inj 100 / 100 100 ML @ 200 mls/hr IV.SIG Q8H RADHA Rx#:[id number] Rocephin Inj 1,000 MG In NS Inj 100 / 100 100 ML @ 200 mls/hr IV.SIG Q24H RADHA Rx#:[id number] Oral 400 / 400 240 / 240 Anesthesia Amount 1500 / 1500 Other: # Voids 2 # Bowel Movements 0 Narrative: GENERAL: Elderly female in no acute distress.HEAD IS DRESSED HEENT: Head is wrapped with dressing and KATHIE. minimal blood sipping through the dressing. CARDIOVASCULAR: Normal rate and regular rhythm without murmurs, gallops, or rubs. RESPIRATORY: Good respiratory efforts. Breath sounds equal and clear to auscultation bilaterally. GASTROINTESTINAL: Abdomen soft, non-tender, non-distended. Normal active bowel sounds MUSCULOSKELETAL: Extremities without cyanosis, or edema. NEURO: awake and alert. PSYCH: Appropriate mood and affect. Results - Labs CBC & Chem 7: 06/16/18 04:36 06/16/18 04:36 Laboratory Results - last 24 hr 06/14/18 06/15/18 06/16/18 11:45 06:45 04:36 WBC 4.8 RBC 2.25 L Hgb 7.2 L Hct 20.0 L* MCV 89.0 MCH 32.2 MCHC 36.2 H RDW 16.1 Plt Count 118 L MPV 7.0 Prelim Diff (Auto) Slide review pending Neut % (Auto) 79.0 H Lymph % (Auto) 10.3 [place] % (Auto) 9.3 H Eos % (Auto) 1.0 Baso % (Auto) 0.4 Neut # (Auto) 3.8 Lymph # (Auto) 0.5 L [place] # (Auto) 0.5 Eos # (Auto) 0.0 Baso # (Auto) 0.0 WBC Differential Manual diff final Seg Neuts % (Manual) 85 H Band Neuts % (Manual) 3 Lymphocytes % (Manual) 7 L Monocytes % (Manual) 4 Eosinophils % (Manual) 1 Abs Neuts (Manual) 4.2 Differential Comment . Platelet Estimate Low L Platelet Morphology Normal Sodium Potassium Chloride Carbon Dioxide Anion Gap BUN Creatinine Estimated GFR Random Glucose Hemoglobin A1c 4.4 Calcium Prot Corrected Calcium Phosphorus Magnesium Total Bilirubin AST ALT Alkaline Phosphatase Total Protein Albumin Free T4 Rout Panel Path Interp MTS Gel Crossmatch Bld Prod Order Comment 06/16/18 06/16/18 04:36 09:18 WBC RBC Hgb Hct MCV MCH MCHC RDW Plt Count MPV Prelim Diff (Auto) Neut % (Auto) Lymph % (Auto) [place] % (Auto) Eos % (Auto) Baso % (Auto) Neut # (Auto) Lymph # (Auto) [place] # (Auto) Eos # (Auto) Baso # (Auto) WBC Differential Seg Neuts % (Manual) Band Neuts % (Manual) Lymphocytes % (Manual) Monocytes % (Manual) Eosinophils % (Manual) Abs Neuts (Manual) Differential Comment Platelet Estimate Platelet Morphology Sodium 133 L Potassium 3.1 L Chloride 99 Carbon Dioxide 25.3 Anion Gap 9 BUN 12 Creatinine 0.92 Estimated GFR 60 L Random Glucose 109 H Hemoglobin A1c Calcium 7.3 L* Prot Corrected Calcium 8.2 L Phosphorus 2.6 Magnesium 1.6 Total Bilirubin 0.7 AST 109 H ALT 61 H Alkaline Phosphatase 85 Total Protein 5.4 L Albumin 2.4 L Free T4 0.46 L Rout Panel Path Interp MTS Gel Crossmatch See Detail Bld Prod Order Comment Cancelled - Imaging Impressions Lumbar Spine CT 06/15/18 00:00 CONCLUSION: 1. There is no evidence for acute compression. Degenerative changes as above with radiographically significant spinal stenosis at L4-5. Thoracic Spine CT 06/15/18 00:00 CONCLUSION: Chronic degenerative changes without any significant compromise to the exiting nerve roots or the thecal sac. - Procedures POSTERIOR CLOSURE OF LEFT OCCIPITAL SCALP WOUND BY PLASTICS ON 06-14 Assessment and Plan - Plan 73-year-old female with: 1. Left temporo occipital scalp Hematoma with bleeding and necrotic tissue. -Plastic surgery consulted. Patient has been seen by plastic surgery with debridement and dressing change at bedside per nursing. Patient needs further surgical intervention, POSTERIOR CLOSURE OF LEFT OCCIPITAL SCALP WOUND BY PLASTICS ON 06-14 2. Hypertensive Urgency on presentation. It is unclear if the patient takes medications at home. At times she seems forgetful. Continue amlodipine 5 mg and Coreg 3.125 mg BID and follow. 3. CAD status post CABG and Pacemaker placement Cardiology consult performed and recommended for discharge 4. Hypothyroidism, continue Hormonal therapy. 5. Anemia secondary to blood loss: -Continue to follow H&H. Transfuse as needed. ANEMIA WILL TRANSFUSE 2 UNITS TODAY 06-14 TRANSFUSE 2 UNITS PRBC ON 06-16 DVT prophylaxis with SCDs. HYPOKALEMIA WILL REPLACE WILL GET CT OF LUMBAR AND THORACICS DUE TO PACER Code Status: FULL CODE Discussed Condition With: RN AND PT AND CM Discharge Planning: PENDING CLEARANCE BY ALL WILL NEED SNF
[2018-06-16] MEDS: Acetaminophen 325 MG Tablet PO PRN (15:18)
--- NOTE | 2018-06-16 16:55 | P.PN ---
Subjective Interval history: Note from 06/15/2018. Pain controlled. No new complaints. Physical Exam Vital signs: Vital Signs 06/15/18 20:00 06/16/18 00:00 06/16/18 04:00 Temperature 99.0 F 99.3 F 98.2 F Pulse Rate 78 82 73 Respiratory Rate 18 18 18 Blood Pressure 118/70 159/72 H 173/73 H Pulse Oximetry 94 L 94 L 91 L 06/16/18 08:00 06/16/18 12:00 06/16/18 15:50 Temperature 98.0 F 97.6 F 97 F L Pulse Rate 80 77 Respiratory Rate 18 18 18 Blood Pressure 115/59 L 120/60 123/60 Pulse Oximetry 97 98 97 06/16/18 15:56 06/16/18 16:00 Temperature 97 F L 97 F L Pulse Rate 73 73 Respiratory Rate 18 18 Blood Pressure 123/60 123/60 Pulse Oximetry 97 Intake & Output 06/15/18 06/16/18 06/16/18 18:59 06:59 18:59 Intake Total 2099 / 2099 1240 / 1240 0 / 0 Balance 2099 / 2100 1240 / 1240 0 / 0 Intake: IV 200 / 200 1000 / 1000 LR 1000 mL Inj 1,000 ML @ 30 1000 / 1000 mls/hr IV.SIG .Q24H RADHA Rx#: [id number] Ancef Inj 1,000 MG In NS Inj 100 / 100 100 ML @ 200 mls/hr IV.SIG Q8H RADHA Rx#:[id number] Rocephin Inj 1,000 MG In NS Inj 100 / 100 100 ML @ 200 mls/hr IV.SIG Q24H RADHA Rx#:[id number] Oral 400 / 400 240 / 240 Anesthesia Amount 1500 / 1500 Intake (Blood Product) Amt 0 / 0 Rbc As-3 Leukoreduced Unit 0 / 0 [id number] Other: # Voids 2 # Bowel Movements 0 Narrative: Dressing removed Rotation flap viable Sutures in place Results - Labs CBC & Chem 7: 06/16/18 04:36 06/16/18 04:36 Laboratory Results - last 24 hr 06/14/18 06/16/18 06/16/18 11:45 04:36 04:36 WBC 4.8 RBC 2.25 L Hgb 7.2 L Hct 20.0 L* MCV 89.0 MCH 32.2 MCHC 36.2 H RDW 16.1 Plt Count 118 L MPV 7.0 Prelim Diff (Auto) Slide review pending Neut % (Auto) 79.0 H Lymph % (Auto) 10.3 [place] % (Auto) 9.3 H Eos % (Auto) 1.0 Baso % (Auto) 0.4 Neut # (Auto) 3.8 Lymph # (Auto) 0.5 L [place] # (Auto) 0.5 Eos # (Auto) 0.0 Baso # (Auto) 0.0 WBC Differential Manual diff final Seg Neuts % (Manual) 85 H Band Neuts % (Manual) 3 Lymphocytes % (Manual) 7 L Monocytes % (Manual) 4 Eosinophils % (Manual) 1 Abs Neuts (Manual) 4.2 Differential Comment . Platelet Estimate Low L Platelet Morphology Normal Sodium 133 L Potassium 3.1 L Chloride 99 Carbon Dioxide 25.3 Anion Gap 9 BUN 12 Creatinine 0.92 Estimated GFR 60 L Random Glucose 109 H Calcium 7.3 L* Prot Corrected Calcium 8.2 L Phosphorus 2.6 Magnesium 1.6 Total Bilirubin 0.7 AST 109 H ALT 61 H Alkaline Phosphatase 85 Total Protein 5.4 L Albumin 2.4 L Free T4 0.46 L Blood Type O Negative Antibody Screen Positive H MTS Gel Crossmatch See Detail Bld Prod Order Comment 06/16/18 09:18 WBC RBC Hgb Hct MCV MCH MCHC RDW Plt Count MPV Prelim Diff (Auto) Neut % (Auto) Lymph % (Auto) [place] % (Auto) Eos % (Auto) Baso % (Auto) Neut # (Auto) Lymph # (Auto) [place] # (Auto) Eos # (Auto) Baso # (Auto) WBC Differential Seg Neuts % (Manual) Band Neuts % (Manual) Lymphocytes % (Manual) Monocytes % (Manual) Eosinophils % (Manual) Abs Neuts (Manual) Differential Comment Platelet Estimate Platelet Morphology Sodium Potassium Chloride Carbon Dioxide Anion Gap BUN Creatinine Estimated GFR Random Glucose Calcium Prot Corrected Calcium Phosphorus Magnesium Total Bilirubin AST ALT Alkaline Phosphatase Total Protein Albumin Free T4 Blood Type Antibody Screen MTS Gel Crossmatch See Detail Bld Prod Order Comment Cancelled - Procedures POSTERIOR CLOSURE OF LEFT OCCIPITAL SCALP WOUND BY PLASTICS ON 06-14 Assessment and Plan - Assessment (1) Open scalp wound Code(s): S01.00XA - Unspecified open wound of scalp, initial encounter Status : Acute (2) Hematoma of left parietal scalp Code(s): S00.03XA - Contusion of scalp, initial encounter Status: Acute - Plan 73-year-old female status post left lateral occipital scalp adjacent tissue rearrangement in the form of a scalp rotation flap Flap healing well Daily bacitracin Xeroform to incision by nursing Discharge planning per primary
[2018-06-16] MEDS: amLODIPine 5 MG Tablet PO SCH (19:19)
[2018-06-17] MEDS ORDERED: Haloperidol Inj 5 MG/ML Ampul IV.PUSH ONE (01:07)
[2018-06-17] MEDS ORDERED: Haloperidol Inj 5 MG/ML Ampul IM ONE (02:56)
[2018-06-17 07:33] LABS: Baso % (Auto) 0.3 % (0.0-2.0); Eos # (Auto) 0.1 th/mm3 (0.0-0.4); Eos % (Auto) 1.4 % (0.0-4.0); Hematocrit 33.5 % (35.0-46.0); Hemoglobin 11.8 gm/dL (11.6-15.3); Lymph # (Auto) 0.5 th/mm3 (1.0-4.8); Lymph % (Auto) 12.2 % (9.0-44.0); Mean Corpuscular HGB Conc 35.4 % (32.0-36.0); Mean Corpuscular Hemoglobin 31.4 pg (27.0-34.0); Mean Corpuscular Volume 88.7 fL (80.0-100.0); Mean Platelet Volume 6.8 fL (7.0-11.0); Mono # (Auto) 0.3 th/mm3 (0.0-0.9); Mono % (Auto) 7.7 % (0.0-8.0); Neut # (Auto) 3.4 th/mm3 (1.8-7.7); Neut % (Auto) 78.4 % (16.0-70.0); Platelet Count 105 th/mm3 (150-450); Red Blood Count 3.78 mil/mm3 (4.00-5.30); White Blood Count 4.3 th/mm3 (4.0-11.0)
[2018-06-17 08:07] LABS: Alanine Aminotransferase 54 U/L (10-53); Albumin 2.6 g/dL (3.4-5.0); Alkaline Phosphatase 95 U/L (45-117); Anion Gap 9 meq/L (5-15); Aspartate Aminotransferase 97 U/L (15-37); Blood Urea Nitrogen 13 mg/dL (7-18); Calcium 7.6 mg/dL (8.5-10.1); Carbon Dioxide 25.7 meq/L (21.0-32.0); Chloride 104 meq/L (98-107); Glomerular Filtration Rate 67 mL/min (>89); Glucose,Random 89 mg/dL (74-106); Magnesium 1.7 mg/dL (1.5-2.5); Phosphorus 2.1 mg/dL (2.5-4.9); Potassium 4.3 meq/L (3.5-5.1); Sodium 139 meq/L (136-145); Total Protein 5.7 g/dL (6.4-8.2)
--- NOTE | 2018-06-17 09:51 | P.PNIM ---
Subjective Interval history: Pt seen and examined for f/u confusion, scalp lac, anemia. She remains confused and in restraints because she continues to pull off her head dressing. She has no complaints. States she wants to go home. When asked about her elevated LFTs she tells me she was treated for HCV many years ago. Denies abdominal pain, N/ V. Physical Exam Vital signs: Vital Signs 06/16/18 12:00 06/16/18 15:50 06/16/18 15:56 Temperature 97.6 F 97 F L 97 F L Pulse Rate 77 73 Respiratory Rate 18 18 18 Blood Pressure 120/60 123/60 123/60 Pulse Oximetry 98 97 06/16/18 16:00 06/16/18 19:50 06/16/18 20:09 Temperature 97 F L 98.4 F 96.6 F L Pulse Rate 73 66 94 H Respiratory Rate 18 16 16 Blood Pressure 123/60 172/74 H 154/70 H Pulse Oximetry 97 94 L 06/16/18 20:15 06/16/18 20:42 06/17/18 00:45 Temperature 97.8 F 98.1 F 98.7 F Pulse Rate 64 62 68 Respiratory Rate 16 16 19 Blood Pressure 157/73 H 160/76 H 125/88 Pulse Oximetry 100 95 06/17/18 03:10 Temperature 97.8 F Pulse Rate 65 Respiratory Rate 20 Blood Pressure 130/78 Pulse Oximetry 96 Intake & Output 06/16/18 06/17/18 06/17/18 18:59 06:59 18:59 Intake Total 480 / 480 550 / 550 Balance 480 / 480 550 / 550 Weight 59 kg Intake: Oral 480 / 480 550 / 550 Intake (Blood Product) Amt 0 / 0 0 / 0 Rbc As-3 Leukoreduced Unit 0 / 0 0 / 0 [id number] Rbc As-3 Leukoreduced Unit 0 / 0 [id number] Other: # Voids 4 4 # Bowel Movements 0 Narrative: GENERAL: Elderly female sitting up in bed in [facility]. SKIN: Warm and dry. HEENT: Bandage over scalp laceration. Pupils equal and round. HEART: RRR no m/r/g. LUNGS: CTAB without wheezes or crackles. ABDOMEN: +BS, soft, NT, ND. No HSM. No guarding or rebound. EXTREMITIES: No LE edema. 2+ pedal pulses. NEURO: Awake and but confused. Results - Labs CBC & Chem 7: 06/17/18 06:28 06/17/18 06:28 Laboratory Results - last 24 hr 06/14/18 06/14/18 06/17/18 11:45 12:33 06:28 WBC 4.3 RBC 3.78 L Hgb 11.8 D Hct 33.5 L MCV 88.7 MCH 31.4 MCHC 35.4 RDW 16.0 Plt Count 105 L MPV 6.8 L Neut % (Auto) 78.4 H Lymph % (Auto) 12.2 [place] % (Auto) 7.7 Eos % (Auto) 1.4 Baso % (Auto) 0.3 Neut # (Auto) 3.4 Lymph # (Auto) 0.5 L [place] # (Auto) 0.3 Eos # (Auto) 0.1 Baso # (Auto) 0.0 WBC Differential . Differential Comment Auto diff final Sodium Potassium Chloride Carbon Dioxide Anion Gap BUN Creatinine Estimated GFR Random Glucose Calcium Phosphorus Magnesium Total Bilirubin AST ALT Alkaline Phosphatase Total Protein Albumin Blood Type O Negative Antibody Screen Positive H MTS Gel Crossmatch See Detail See Detail 06/17/18 06:28 WBC RBC Hgb Hct MCV MCH MCHC RDW Plt Count MPV Neut % (Auto) Lymph % (Auto) [place] % (Auto) Eos % (Auto) Baso % (Auto) Neut # (Auto) Lymph # (Auto) [place] # (Auto) Eos # (Auto) Baso # (Auto) WBC Differential Differential Comment Sodium 139 Potassium 4.3 D Chloride 104 Carbon Dioxide 25.7 Anion Gap 9 BUN 13 Creatinine 0.84 Estimated GFR 67 L Random Glucose 89 Calcium 7.6 L Phosphorus 2.1 L Magnesium 1.7 Total Bilirubin 1.4 H AST 97 H ALT 54 H Alkaline Phosphatase 95 Total Protein 5.7 L Albumin 2.6 L Blood Type Antibody Screen MTS Gel Crossmatch - Procedures POSTERIOR CLOSURE OF LEFT OCCIPITAL SCALP WOUND BY PLASTICS ON 06-14 Assessment and Plan - Assessment (1) Hematoma of left parietal scalp Code(s): S00.03XA - Contusion of scalp, initial encounter Status: Acute (2) Anemia Code(s): D64.9 - Anemia, unspecified Status: Acute - Plan 72 year old female with history of CAD s/p CABG, pacemaker, and recent traumatic subdural hematoma following a fall admitted on 06/11 for persistent bleeding from scalp since her discharge on 06/02. 1. L scalp hematoma - Plastic surgery consulted and patient s/p scalp rotation flap 06/14 - Flap healing well - Daily bacitracin Xeroform to incision by nursing 2. Acute blood loss anemia - Transfused 2 units on 06/14 and 06/16 - Hemoglobin improved to 11.8 this AM 3. Elevated LFTs - Does not appear to have been addressed at this point so will obtain liver U/S and hepatitis profile as well as HCV RNA - Avoid hepatoxic agents - Change Percocet to just oxycodone 4. Hypertension - BPs a little labile - Increase Norvasc to 10 mg - Continue Coreg - Clonidine PRN 5. CAD - S/P CABG and pacemaker placement - Continue beta tao 6. 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 Anticipate clearance for D/C in next 1-2 days. Case management assisting
[2018-06-17] MEDS: amLODIPine 5 MG Tablet PO SCH (10:17)
[2018-06-17 14:23] LABS: Hepatitits B Surface Antigen Nonreactive (Nonreactive)
[2018-06-17 14:46] LABS: Hepatitis A IgM Antibody Nonreactive (Nonreactive)
[2018-06-18] MEDS: Levothyroxine 50 MCG Tablet PO SCH (05:34)
[2018-06-18] MEDS: amLODIPine 10 MG Tablet PO SCH (08:15)
[2018-06-18 10:26] LABS: Hematocrit 39.6 % (35.0-46.0); Hemoglobin 13.9 gm/dL (11.6-15.3); Mean Corpuscular HGB Conc 35.2 % (32.0-36.0); Mean Corpuscular Volume 87.9 fL (80.0-100.0); Mean Platelet Volume 6.7 fL (7.0-11.0); Platelet Count 147 th/mm3 (150-450); Red Cell Distribution Width 16.1 % (11.6-17.2); White Blood Count 7.1 th/mm3 (4.0-11.0)
--- NOTE | 2018-06-18 10:32 | US ---
EXAM DATE: Most AGE/SEX: 73 years / Female INDICATIONS: Elevated lab values. CLINICAL DATA: This is the patient's initial encounter. Patient reports that signs and symptoms have been present for 1 day and indicates a pain score of 0/10. MEDICAL/SURGICAL HISTORY: . Elevated lab values. Pacemaker. CABG. COMPARISON: No prior exams available for comparison. MEASUREMENTS: Liver:__ 14.8 cm. Common Bile Duct:__ 4mm. Right Kidney:__ 10.0 x 3.8 x 4.5 cm. FINDINGS: Liver: Normal echotexture without focal lesion or ductal dilatation. Portal Vein: Hepatopedal flow seen in portal vein. Common Duct: No intraluminal mass or stone visualized. Gallbladder: Small echogenic focus in the gallbladder without obvious shadowing probably stone. Chron ic cholecystitis would be consideration. Pancreas: Not well visualized. Right Kidney: Normal echotexture and cortical thickness. No mass or hydronephrosis. Other: None. CONCLUSION: 1. Nonshadowing stone versus debris in the gallbladder 2. Chronic cholecystitis would be consideration. Electronically signed by: Coleman Whitley MD 06/18/2018 10:31 AM EDT
[2018-06-18 10:59] LABS: Alanine Aminotransferase 60 U/L (10-53); Albumin 3.2 g/dL (3.4-5.0); Alkaline Phosphatase 121 U/L (45-117); Anion Gap 10 meq/L (5-15); Aspartate Aminotransferase 92 U/L (15-37); Blood Urea Nitrogen 13 mg/dL (7-18); Calcium 8.3 mg/dL (8.5-10.1); Carbon Dioxide 28.9 meq/L (21.0-32.0); Chloride 95 meq/L (98-107); Glomerular Filtration Rate 63 mL/min (>89); Glucose,Random 126 mg/dL (74-106); Potassium 3.9 meq/L (3.5-5.1); Sodium 134 meq/L (136-145); Total Protein 7.1 g/dL (6.4-8.2)
[2018-06-18 11:11] LABS: Bacteria,Urine Rare /hpf; Bilirubin,Urine Negative (Negative); Clarity,Urine Clear (Clear); Color,Urine Yellow (Yellw/Straw); Glucose,Urine (UA) Negative (Negative); Leukocyte Esterase,Urine Small (Negative); Mucus,Urine Few /lpf (Occasional); Nitrite,Urine Negative (Negative); Specific Gravity,Urine 1.012 (1.002-1.035); Squamous Epithelial Cell,Urine 1 /hpf (0-5)
--- NOTE | 2018-06-18 11:26 | P.PNIM ---
Subjective Interval history: Pt seen and examined. Remains slightly confused. Oriented to self and city only. Has no complaints. Wants to go home. BPs elevated this AM up to 213/102. Denies chest pain or shortness of breath. Tolerating PO. No N/V. Physical Exam Vital signs: Vital Signs 06/17/18 12:00 06/17/18 16:00 06/17/18 21:50 Temperature 98.3 F 98.3 F 97.9 F Pulse Rate 73 86 115 H Respiratory Rate 16 16 16 Blood Pressure 182/81 H 202/96 H 180/89 H Pulse Oximetry 97 95 100 06/18/18 00:45 06/18/18 06:30 06/18/18 07:00 Temperature 97.7 F 97.3 F L Pulse Rate 75 75 Respiratory Rate 18 17 12 Blood Pressure 150/86 H 188/89 H Pulse Oximetry 96 99 06/18/18 07:56 Temperature 98.2 F Pulse Rate 76 Respiratory Rate 12 Blood Pressure 213/102 H Pulse Oximetry 99 Intake & Output 06/17/18 06/18/18 06/18/18 18:59 06:59 18:59 Intake Total 580 / 580 300 / 300 250 / 250 Balance 580 / 580 300 / 300 250 / 250 Weight 59 kg Intake: IV 100 / 100 250 / 250 Rocephin Inj 1,000 MG In NS Inj 100 / 100 100 ML @ 200 mls/hr IV.SIG Q24H RADHA Rx#:[id number] Oral 480 / 480 300 / 300 Other: # Voids 3 2 Date of Last Bowel Movement 06/17/18 # Bowel Movements 1 0 Narrative: GENERAL: Elderly female sitting up in bed in [facility]. SKIN: Warm and dry. No jaundice. HEENT: Bandage over scalp laceration. Pupils equal and round. No scleral icterus. HEART: RRR no m/r/g. LUNGS: CTAB without wheezes or crackles. ABDOMEN: +BS, soft, NT, ND. No HSM. No guarding or rebound. EXTREMITIES: No LE edema. NEURO: Awake and but confused. Results - Labs CBC & Chem 7: 06/18/18 10:07 06/18/18 10:07 Laboratory Results - last 24 hr 06/17/18 06/18/18 06/18/18 12:22 10:07 10:07 WBC 7.1 RBC 4.50 Hgb 13.9 D Hct 39.6 MCV 87.9 MCH 31.0 MCHC 35.2 RDW 16.1 Plt Count 147 L D MPV 6.7 L Sodium 134 L Potassium 3.9 Chloride 95 L D Carbon Dioxide 28.9 Anion Gap 10 BUN 13 Creatinine 0.89 Estimated GFR 63 L Random Glucose 126 H Calcium 8.3 L Total Bilirubin 1.3 H AST 92 H ALT 60 H Alkaline Phosphatase 121 H Ammonia Total Protein 7.1 D Albumin 3.2 L D Hepatitis A IgM Ab Nonreactive Hep Bs Antigen Nonreactive Hep B Core IgM Ab Nonreactive Hep C IgG Ab Reactive H 06/18/18 10:07 WBC RBC Hgb Hct MCV MCH MCHC RDW Plt Count MPV Sodium Potassium Chloride Carbon Dioxide Anion Gap BUN Creatinine Estimated GFR Random Glucose Calcium Total Bilirubin AST ALT Alkaline Phosphatase Ammonia Less than 10 L Total Protein Albumin Hepatitis A IgM Ab Hep Bs Antigen Hep B Core IgM Ab Hep C IgG Ab - Imaging Impressions Liver Ultrasound 06/18/18 00:00 CONCLUSION: 1. Nonshadowing stone versus debris in the gallbladder 2. Chronic cholecystitis would be consideration. - Procedures POSTERIOR CLOSURE OF LEFT OCCIPITAL SCALP WOUND BY PLASTICS ON 06-14 Assessment and Plan - Assessment (1) Hematoma of left parietal scalp Code(s): S00.03XA - Contusion of scalp, initial encounter Status: Acute (2) Anemia Code(s): D64.9 - Anemia, unspecified Status: Acute - Plan 72 year old female with history of CAD s/p CABG, pacemaker, and recent traumatic subdural hematoma following a fall admitted on 06/11 for persistent bleeding from scalp since her discharge on 06/02. 06/18: Reviewed liver u/s as stated below. Increasing BP meds as stated below. Need PT to see her again. I am not sure she is a safe discharge home since she lives alone and she is confused. 1. L scalp hematoma - Plastic surgery consulted and patient s/p scalp rotation flap 06/14 - Flap healing well - Daily bacitracin Xeroform to incision by nursing 2. Acute blood loss anemia - Transfused 2 units on 06/14 and 06/16 - Hemoglobin now stable, up to 13.9 this AM 3. Elevated LFTs - AST 90-100s and ALT 50-90s during this admission - Ammonia level normal - Tbili just mildly elevated - Alkaline phosphatase has been normal - Liver U/S shows unremarkable liver and perhaps some findings of chronic cholecystitis but patient not complaining of abdominal pain - Hepatitis panel positive for HCV Ab - Will check HCV RNA - Avoid hepatotoxic agents - Avoid Tylenol - Unclear of patient's EtOH use given she is a poor historian and confused but her AST>ALT - Not really an obstructive pattern since his bili has been normal or just slightly elevated and his alkaline phosphatase has been normal - Continue to monitor - Can be further followed as an outpatient since patient not symptomatic at this time 4. Hypertension - BPs significantly elevated - Increase Norvasc to 10 mg - Increase Coreg to 6.25 mg BID - Clonidine PRN - Continue to closely follow 5. CAD - S/P CABG and pacemaker placement - Continue beta tao 6. Hypothyroidism - TSH 9.15 with low free T4 - Reportedly on 25 mcg Levothyroxine at home, increase to 50 mcg - Check TSH in 6 weeks DVT prophylaxis: SCDs Discharge Planning: Case management assisting with D/C needs. Clinically stable but I am not sure she is a safe discharge since she lives alone and she has been confused.
[2018-06-18] MEDS ORDERED: hydrALAZINE 50 MG Tablet PO ONE (17:15)
[2018-06-18] MEDS ORDERED: Carvedilol 6.25 MG Tablet PO SCH (21:00)
[2018-06-19] MEDS: hydrALAZINE 50 MG Tablet PO SCH ×4 (01:24→23:02)
[2018-06-19] MEDS: Levothyroxine 50 MCG Tablet PO SCH (05:11)
[2018-06-19] MEDS: Lisinopril 20 MG Tablet PO SCH (08:45)
[2018-06-19] MEDS: amLODIPine 10 MG Tablet PO SCH (08:45)
[2018-06-19] MEDS: Carvedilol 12.5 MG Tablet PO SCH ×2 (08:45→22:55)
--- NOTE | 2018-06-19 11:15 | P.PNIM ---
Subjective Interval history: Pt seen and examined. Remains in restraints as she was pulling off bandage on her head. Remains confused and paranoid per RN. Pt with no complaints except wants to go home. States she lives alone with a dog. Daughter apparently coming into town tomorrow as she is the POA. Pt tells me again that she has always had elevated LFTs secondary to her hepatitis C. BPs yesterday were significantly elevated; today they are better. RN notes that he had to watch patient take her medications because she had tried to take them out of her mouth. Physical Exam Vital signs: Vital Signs 06/18/18 12:00 06/18/18 16:00 06/18/18 20:00 Temperature 98.9 F 99 F 98 F Pulse Rate 89 82 78 Respiratory Rate 18 18 18 Blood Pressure 190/86 H 202/98 H 170/89 H Pulse Oximetry 96 96 95 06/19/18 01:27 06/19/18 04:00 06/19/18 05:07 Temperature 98.6 F 98.3 F Pulse Rate 72 73 Respiratory Rate 16 18 Blood Pressure 199/93 H 198/95 H 189/93 H Pulse Oximetry 94 L 06/19/18 06:58 06/19/18 08:00 Temperature 98.9 F Pulse Rate 70 Respiratory Rate 12 20 Blood Pressure 153/75 H Pulse Oximetry 98 Intake & Output 06/18/18 06/19/18 06/19/18 18:59 06:59 18:59 Intake Total 490 / 490 Balance 490 / 490 Weight 56.2 kg Intake: IV 250 / 250 Oral 240 / 240 Other: Date of Last Bowel Movement 06/17/18 06/18/18 Narrative: GENERAL: Elderly female sitting up in bed in [facility]. SKIN: Warm and dry. No jaundice. HEENT: Bandage over scalp laceration. Pupils equal and round. No scleral icterus. HEART: RRR no m/r/g. LUNGS: CTAB without wheezes or crackles. ABDOMEN: +BS, soft, NT, ND. No HSM. No guarding or rebound. EXTREMITIES: No LE edema. NEURO: Awake and alert but confused. Only oriented to person. Results - Labs CBC & Chem 7: 06/18/18 10:07 06/18/18 10:07 - Procedures POSTERIOR CLOSURE OF LEFT OCCIPITAL SCALP WOUND BY PLASTICS ON 06-14 Assessment and Plan - Assessment (1) Hematoma of left parietal scalp Code(s): S00.03XA - Contusion of scalp, initial encounter Status: Acute (2) Anemia Code(s): D64.9 - Anemia, unspecified Status: Acute - Plan 72 year old female with history of CAD s/p CABG, pacemaker, and recent traumatic subdural hematoma following a fall admitted on 06/11 for persistent bleeding from scalp since her discharge on 06/02. 06/19: BP stable. Clinically stable for discharge but unsafe plan at this time as the patient has dementia and she lives alone. Her daughter who is her POA is coming into town tomorrow to discuss options. 1. L scalp hematoma - Plastic surgery consulted and patient s/p scalp rotation flap 06/14 - Flap healing well - Daily bacitracin Xeroform to incision by nursing 2. Acute blood loss anemia - Transfused 2 units on 06/14 and 06/16 - Hemoglobin now stable, up to 13.9 3. Elevated LFTs - AST 90-100s and ALT 50-90s during this admission - Ammonia level normal - Tbili just mildly elevated - Alkaline phosphatase has been normal - Liver U/S shows unremarkable liver and perhaps some findings of chronic cholecystitis but patient not complaining of abdominal pain - Hepatitis panel positive for HCV Ab - HCV RNA pending - Avoid hepatotoxic agents - Avoid Tylenol - Unclear of patient's EtOH use given she is a poor historian and confused but her AST>ALT - Not really an obstructive pattern since his bili has been normal or just slightly elevated and his alkaline phosphatase has been normal - Continue to monitor - Can be further followed as an outpatient since patient not symptomatic at this time 4. Hypertension - BPs elevated all throughout the night - Continue Norvasc to 10 mg - Increased Coreg to 12.5 mg BID - Add hydralazine - Clonidine PRN - Continue to closely follow 5. CAD - S/P CABG and pacemaker placement - Continue beta tao 6. Hypothyroidism - TSH 9.15 with low free T4 - Reportedly on 25 mcg Levothyroxine at home, increase to 50 mcg - Check TSH in 6 weeks DVT prophylaxis: SCDs Discharge Planning: Case management assisting with D/C needs. Clinically stable but I am not sure she is a safe discharge since she lives alone and she has dementia. PT recommending home PT.
[2018-06-20] MEDS: Levothyroxine 50 MCG Tablet PO SCH (05:58)
[2018-06-20] MEDS: Carvedilol 12.5 MG Tablet PO SCH ×2 (10:09→21:44)
[2018-06-20] MEDS: Lisinopril 20 MG Tablet PO SCH (10:09)
[2018-06-20] MEDS: hydrALAZINE 50 MG Tablet PO SCH (10:09)
[2018-06-20] MEDS: amLODIPine 10 MG Tablet PO SCH (10:09)
--- NOTE | 2018-06-20 14:31 | P.PNIM ---
Subjective Interval history: Patient remained confused and requiring restraints. Still does not know where she leaves. Physical Exam Vital signs: Vital Signs 06/19/18 16:00 06/19/18 20:00 06/20/18 00:00 Temperature 98.6 F 98 F 97.8 F Pulse Rate 71 67 67 Respiratory Rate 20 18 18 Blood Pressure 137/71 164/78 H 178/82 H Pulse Oximetry 97 95 95 06/20/18 04:00 06/20/18 08:00 Temperature 97.2 F L 98 F Pulse Rate 63 62 Respiratory Rate 18 24 Blood Pressure 183/84 H 174/83 H Pulse Oximetry 9 L 96 Intake & Output 06/19/18 06/20/18 06/20/18 18:59 06:59 18:59 Weight 55.5 kg Other: # Voids 3 Date of Last Bowel Movement 06/18/18 06/18/18 # Bowel Movements 0 Narrative: GENERAL: Elderly female sitting up in bed in [facility]. HEENT: Bandage over scalp laceration. Pupils equal and round. No scleral icterus. HEART: RRR no m/r/g. LUNGS: CTAB without wheezes or crackles. ABDOMEN: +BS, soft, NT, ND. No HSM. No guarding or rebound. EXTREMITIES: No LE edema. NEURO: Awake and alert. Only oriented to person. Results - Labs CBC & Chem 7: 06/18/18 10:07 06/18/18 10:07 - Procedures POSTERIOR CLOSURE OF LEFT OCCIPITAL SCALP WOUND BY PLASTICS ON 06-14 Assessment and Plan - Assessment (1) Hematoma of left parietal scalp Code(s): S00.03XA - Contusion of scalp, initial encounter Status: Acute (2) Anemia Code(s): D64.9 - Anemia, unspecified Status: Acute - Plan 72 year old female with history of CAD s/p CABG, pacemaker, and recent traumatic subdural hematoma following a fall admitted on 06/11 for persistent bleeding from scalp since her discharge on 06/02. 1. L scalp hematoma - Plastic surgery consulted and patient s/p scalp rotation flap 06/14 - Flap healing well - Daily bacitracin Xeroform to incision by nursing 2. Acute blood loss anemia - Transfused 2 units on 06/14 and 06/16 - Hemoglobin now stable, up to 13.9 3. Elevated LFTs - AST 90-100s and ALT 50-90s during this admission - Ammonia level normal - Tbili just mildly elevated - Alkaline phosphatase has been normal - Liver U/S shows unremarkable liver and perhaps some findings of chronic cholecystitis but patient not complaining of abdominal pain - Hepatitis panel positive for HCV Ab - HCV RNA pending - Avoid hepatotoxic agents - Avoid Tylenol - Unclear of patient's EtOH use given she is a poor historian and confused but her AST>ALT - Not really an obstructive pattern since his bili has been normal or just slightly elevated and his alkaline phosphatase has been normal - Continue to monitor - Can be further followed as an outpatient since patient not symptomatic at this time 4. Hypertension - BPs elevated all throughout the night - Continue Norvasc to 10 mg - Increased Coreg to 12.5 mg BID - Add hydralazine - Clonidine PRN - Continue to closely follow 5. Probable dementia with behavioral disturbances: - Discussed the history at length with the patient's daughter today. Based on the history and the current presentation, the patient is exhibiting dementia with behavioral disturbances. - Will consult neuropsychiatry for assistance. -Discussed long-term options with the patient's daughter. She would likely benefit from a locked unit at a nursing home facility. Daughter is agreeable. 5. CAD - S/P CABG and pacemaker placement - Continue beta tao 6. Hypothyroidism - TSH 9.15 with low free T4 - Reportedly on 25 mcg Levothyroxine at home, increase to 50 mcg - Check TSH in 6 weeks DVT prophylaxis: SCDs Discharge Planning: Case management assisting with D/C needs. Need placement. The patient is not safe to return home. She does not have capacity.
[2018-06-20] MEDS: hydrALAZINE 25 MG Tablet PO SCH ×2 (15:34→21:46)
[2018-06-21] MEDS: Levothyroxine 50 MCG Tablet PO SCH (06:10)
[2018-06-21] MEDS: hydrALAZINE 25 MG Tablet PO SCH ×3 (06:19→22:18)
--- NOTE | 2018-06-21 11:37 | P.DS ---
Date of admission: 06/11/18 12:29 Primary care physician: Fahad Laguna Brief History from admission: HPI from the admitting physician: This is a pleasant 72 y/o Female with CAD, status post CABG, who was discharged from this facility due to status post fall with secondary subdural Hematoma she was stable and discharged after clearance by Neurosurgery and Cardiology, came back to ER the patient continue bleeding from Scalp since discharged on 06/02/18, The patient states that she is not been able to get the bleeding to stop. She also reports associated headache and dizziness. Seen in Emergency room and discussed with Doctor Harrison, she will need evaluation by Plastic surgery and evaluate for probable Surgical procedure on scalp to remove clots and debridement of her necrotic tissue. Patient update on day of discharge: Patient reports she is feeling okay. Still frustrated about being in the hospital. Discussed with her daughter at bedside. She is more agreeable to SNF placement. Still with intermittent episode of impulsivity. DS: Diagnosis - Discharge Diagnosis (1) Hematoma of left parietal scalp Status: Acute (2) Anemia Status: Acute (3) Cognitive disorder Status: Acute (4) Major neurocognitive disorder as late effect of traumatic brain injury with behavioral disturbance Status: Acute DS: Summary Hospital Course: 72 year old female with history of CAD s/p CABG, pacemaker, and recent traumatic subdural hematoma following a fall admitted on 06/11 for persistent bleeding from scalp since her discharge on 06/02. Evaluation and treatment course detailed below: 1. L scalp hematoma - Plastic surgery consulted and patient s/p scalp rotation flap 06/14 - Flap healing well - Daily bacitracin Xeroform to incision by nursing 2. Acute blood loss anemia - Transfused 2 units on 06/14 and 06/16 - Hemoglobin now stable, up to 13.9 3. Elevated LFTs - AST 90-100s and ALT 50-90s during this admission - Ammonia level normal - Tbili just mildly elevated - Alkaline phosphatase has been normal - Liver U/S shows unremarkable liver and perhaps some findings of chronic cholecystitis but patient not complaining of abdominal pain - Hepatitis panel positive for HCV Ab - HCV RNA pending - Avoid hepatotoxic agents - Avoid Tylenol - Unclear of patient's EtOH use given she is a poor historian and confused but her AST>ALT -Hepatitis C can be further followed as an outpatient since patient not symptomatic at this time 4. Hypertension -Blood pressure medications have been titrated. - Continue Norvasc to 10 mg, Coreg to 12.5 mg BID - hydralazine 5. Cognitive disorder/probable dementia with behavioral disturbances: - Discussed the history at length with the patient's daughter. Based on the history and the current presentation, the patient is exhibiting dementia with behavioral disturbances. -Appreciate neuropsychology input. Agree with adding trazodone at bedtime to help with sleep. Behavior modification to help with sleep/wake cycle. -Discussed long-term options with the patient's daughter. Plan for a long-term facility placement 5. CAD - S/P CABG and pacemaker placement - Continue beta tao 6. Hypothyroidism - TSH 9.15 with low free T4 - Reportedly on 25 mcg Levothyroxine at home, increase to 50 mcg - Check TSH in 6 weeks - Time Spent with Patient Total time spent providing and/or coordinating discharge services: Greater than 30 minutes - Quality: VTE Deep Vein Thrombosis/Pulmonary Embolism Present on Admission: No Exam Vital signs: Vital Signs 06/20/18 12:00 06/20/18 16:00 06/20/18 20:00 Temperature 98.4 F 97.6 F 97.8 F Pulse Rate 60 63 61 Respiratory Rate 23 22 18 Blood Pressure 169/81 H 151/70 H 145/76 H Pulse Oximetry 96 98 96 06/21/18 00:00 06/21/18 04:00 06/21/18 08:00 Temperature 98.4 F 98.8 F 98.1 F Pulse Rate 67 64 67 Respiratory Rate 18 17 19 Blood Pressure 123/59 L 136/90 117/58 L Pulse Oximetry 97 97 98 Intake & Output 06/20/18 06/21/18 06/21/18 18:59 06:59 18:59 Intake Total 1180 / 1180 Output Total Balance 1180 / 1180 - / -1 Weight 55.7 kg Intake: Oral 1180 / 1180 Output: Stool Other: # Voids 2 Date of Last Bowel Movement 06/18/18 06/21/18 # Bowel Movements 0 Narrative: GENERAL: Elderly female sitting up in bed in [facility]. HEENT: Bandage over scalp laceration. Pupils equal and round. No scleral icterus. HEART: RRR no m/r/g. LUNGS: CTAB without wheezes or crackles. ABDOMEN: +BS, soft, NT, ND. No HSM. No guarding or rebound. EXTREMITIES: No LE edema. NEURO: Awake and alert. Only oriented to person. Results Procedures completed during hospitalization: POSTERIOR CLOSURE OF LEFT OCCIPITAL SCALP WOUND BY PLASTICS ON 06-14 Labs on day of discharge: Labs from last 24 hours 06/18/18 10:07 HCV RNA (PCR) IUs/ml Less than 15 HCV RNA PCR log IUs/ml Less than 1.18 - Impressions ITS Impressions Head CT 06/11/18 09:56 CONCLUSION: 1. Large left posterior scalp hematoma without underlying skull fracture or acute intracranial abnormality. 2. Senescent changes. . Lumbar Spine CT 06/15/18 00:00 CONCLUSION: 1. There is no evidence for acute compression. Degenerative changes as above with radiographically significant spinal stenosis at L4-5. Thoracic Spine CT 06/15/18 00:00 CONCLUSION: Chronic degenerative changes without any significant compromise to the exiting nerve roots or the thecal sac. Liver Ultrasound 06/18/18 00:00 CONCLUSION: 1. Nonshadowing stone versus debris in the gallbladder 2. Chronic cholecystitis would be consideration. Discharge Plan - Discharge Disposition Patient Disposition: 03 Discharge to SNF - Discharge Condition Condition: Good - Discharge Order Discharge Orders: Discharge Order (Routine); Ordered 06/21/18 Ordered By: Venus Cyr - Physicians Team Primary Care Provider: Fahad Laguna Attending Provider: Venus Cyr Other Providers: Austyn Liu MD ; [facility],Agency ; [facility],Agency ; Arnold Polo, PhD ; [facility],Agency
--- NOTE | 2018-06-21 11:42 | P.NPEVAL ---
Patient History - Record/History Review Reason for Referral: The patient is a 73 year old right handed woman who reportedly sustained a traumatic brain injury secondary to a fall in early May, who then returned to [place] on 06/11/2018 for recurrent scalp bleeding. The patient has a history of CAD, post CABG, and tobacco dependence. Recent head CT showed a small left parietal hemorrhagic contusion. Since her recent admission, the patient has become confused, requiring restraints, and also she demonstrates elevated LFT but ammonia level is within normal limits, and her total bilirubin is slightly elevated. She is referred for baseline neurobehavioral status examination to assess cognitive, behavioral and emotional aspects of the injury and to provide treatment recommendations. [facility] - History History Provided By: Patient - Medical History Medical History: Medical History (Last Reviewed 06/18/18 @ 09:16 by Leslie Garcia) Pacemaker - Surgical History Surgical History: Surgical History (Last Reviewed 06/18/18 @ 09:16 by Leslie Garcia) Hx of heart bypass surgery - Family History Family History: Family History (Last Updated 06/01/18 @ 16:52 by Easton Gonzales MD) Other Adopted - Tobacco History Second Hand Smoke Exposure: Yes Tobacco Use In Past 30 Days: Yes Smoking Status: Current every day smoker Tobacco Type: Cigarettes - Alcohol History How Often Do You Have a Drink Containing Alcohol: Monthly or less - Substance Use History Substance History: Unable to Obtain - Travel History Recent Travel in the [place] Within the Last 8 Weeks: No Recent Travel Out of the Country Within the Last 8 Weeks: No - Immunization History Tetanus Immunization: Unable to Assess Hx Influenza Vaccine This Season: Unable to Assess Medications Active Medications Al Hydroxide/Mg Hydroxide (Milk Of Sujit James) 30 ml PO Q12H PRN PRN Reason: Mild Constipation Amlodipine Besylate (Norvasc) 10 mg PO DAILY [facility] Last Admin: 06/20/18 10:09 Dose: 10 mg Bisacodyl (Dulcolax Supp) 10 mg RECTAL DAILY PRN PRN Reason: SEVERE CONSITIPATION Carvedilol (Coreg) 12.5 mg PO BID [facility] Last Admin: 06/20/18 21:44 Dose: 12.5 mg Clonidine HCl (Catapres) 0.1 mg PO Q6H PRN PRN Reason: SEE LABEL COMMENTS Last Admin: 06/20/18 05:58 Dose: 0.1 mg Enalaprilat (Vasotec Inj) 2.5 mg IV.PUSH Q6H PRN PRN Reason: SBP>180 OR DBP>90 Last Admin: 06/19/18 03:54 Dose: 2.5 mg Hydralazine HCl (Apresoline) 75 mg PO Q8HR [facility] Last Admin: 06/21/18 06:19 Dose: 75 mg Lactulose (Lactulose Liq) 30 ml PO DAILY PRN PRN Reason: SEVERE CONSITIPATION Levothyroxine Sodium (Synthroid) 50 mcg PO DAILY@0600 [facility] Last Admin: 06/21/18 06:10 Dose: 50 mcg Lisinopril (Prinivil) 40 mg PO DAILY [facility] Last Admin: 06/20/18 10:09 Dose: 40 mg Morphine Sulfate (Morphine Inj) 2 mg IV.PUSH Q3H PRN PRN Reason: BREAKTHROUGH PAIN Oxycodone HCl (Roxicodone) 5 mg PO Q6H PRN PRN Reason: PAIN SCALE 1 TO 10 Last Admin: 06/19/18 05:15 Dose: 5 mg Sennosides (Senokot) 17.2 mg PO Q12H PRN PRN Reason: Moderate Constipation Sodium Chloride (Ns Flush) 2 ml IV.FLUSH PRN PRN PRN Reason: FLUSH AFTER USING IV ACCESS Last Admin: 06/13/18 21:24 Dose: 2 ml Mental Status Assessment - Mental Status Orientation: oriented to: Self, disoriented to: Place, Time, Situation Mental Status: Impaired: Thought processing, Language/interactions, Attention, Learning/memory, Problem-solving Absent: Hallucinations, Delusions Adjustment/Coping Assessment - Adjustment/Coping Adjustment/Coping: Severe: Awareness, Insight - Observation In terms of emotional functioning, the patient demonstrated challenges. This patient demonstrated no signs of agitation, impulsivity or disinhibition, but she was in restraints. There was no evidence of depression or anxiety. Thought content appeared free from suicidal, homicidal or paranoid ideation, and thought processes were bradyphrenic and tangential, otherwise entirely focused on her need to discharge. The patients mood was angry, and her affect was constricted. The patient appears to possess no insight or awareness into their situation and within the limits of this brief evaluation, poor judgment. Behavior - Behavior Agitation: Moderate Treatment Engagement: Minimal - Observation Behaviorally, the patient demonstrated no signs of agitation, impulsivity or disinhibition. However, she was in restraints. - Goals LTG Status: Deferred STG Status: Deferred - Team Members Team Members: Neuropsychologist Feedback/Education - Barriers to Treatment Capacity to Self-Determine Diagnosis/Discharge Plan - Diagnosis (1) Delirium due to another medical condition, acute, mixed level of activity Status: Acute (2) Major neurocognitive disorder as late effect of traumatic brain injury with behavioral disturbance Status: Acute Impression: This 73 year old woman is in delirium that is superimposed on complicated mild traumatic brain injury. [facility] Level: Level IV Maximizing Acute Care Outcome: There are several recommendations to optimize therapeutic outcome in this woman. In order to promote good sleep/wake cycles, it is recommended to avoid obtaining vital signs at night, ensuring that she is up during the day, sleeping at night. To further promote good sleep/wake hygiene, consider Trazodone 25 HS, unless medically contraindicated. Avoid benzodiazepines in this patient population, as such use often causes increased confusion. To assist with agitation management, consider Haldol 1 mg BID and titrate to effect , unless medically contraindicated. I will order the Agitated Behavior Scale to assist in monitoring her level of agitation per each RN shift, and can also be used as a guidepost to determine efficacy of treatment, with goal to be under a total ABS score of 21. Furthermore, it is recommended that the patient be monitored for emergent behavioral impulsivity as the medical condition evolves. At this point in the recovery process, the patient does not have cognitive capacity as the patient is unable to understand a situation and its likely consequences, nor is the patient able to manipulate information rationally. Cognitive capacity will be assessed throughout the recovery process. - Discharge Planning Anticipated Problems: Ongoing areas of concern will include behavioral impulsivity, lack of insight and judgment, which is expected to improve with time and treatment. This patient is not considered safe to discharge home without supervision at this point in her recovery process. Treatment Plan: This clinician will continue to follow with you throughout the course of this patients acute care treatment, and I will be available to meet with the patient s family/support system to facilitate their understanding and the ongoing care of their family member. The goals of neuropsychological intervention shall be both educational and supportive to the family/support system as is deemed clinically appropriate. Thank you for the opportunity to assist in this patients care. Arnold Polo, Ph.D., ABPP Board Certified in Clinical Neuropsychology [place] [employer] [place] Licensed Psychologist #[id number]
[2018-06-21] MEDS: Carvedilol 12.5 MG Tablet PO SCH ×2 (13:33→22:17)
[2018-06-21] MEDS: Lisinopril 20 MG Tablet PO SCH (13:34)
[2018-06-21] MEDS: amLODIPine 10 MG Tablet PO SCH (13:34)
[2018-06-22] MEDS: Levothyroxine 50 MCG Tablet PO SCH (06:54)
[2018-06-22] MEDS: hydrALAZINE 25 MG Tablet PO SCH ×3 (06:55→21:12)
[2018-06-22] MEDS: Carvedilol 12.5 MG Tablet PO SCH ×2 (08:00→21:12)
[2018-06-22] MEDS: Lisinopril 20 MG Tablet PO SCH (08:01)
[2018-06-22] MEDS: amLODIPine 10 MG Tablet PO SCH (08:01)
--- NOTE | 2018-06-22 15:50 | P.PNIM ---
Subjective Interval history: Patient discharged to SNF yesterday. Case management working on finding an accepting facility. Patient reports she is feeling okay. No new complaints. Physical Exam Vital signs: Vital Signs 06/21/18 16:00 06/21/18 20:00 06/22/18 00:00 Temperature 98.1 F 97.6 F 98.2 F Pulse Rate 114 H 60 62 Respiratory Rate 18 18 Blood Pressure 166/77 H 142/67 H 108/57 L Pulse Oximetry 99 98 98 06/22/18 04:00 06/22/18 08:00 06/22/18 12:00 Temperature 99.7 F H 97.2 F L 98.1 F Pulse Rate 70 68 65 Respiratory Rate 18 17 17 Blood Pressure 123/58 L 148/66 H 148/72 H Pulse Oximetry 97 99 97 Intake & Output 06/21/18 06/22/18 06/22/18 18:59 06:59 18:59 Intake Total 446 / 446 Balance 446 / 446 Weight 56.6 kg Intake: Oral 442 / 442 Other 4 / 4 Other: Other Intake Source Saline Solution # Incontinent Voids 1 Date of Last Bowel Movement 06/21/18 06/21/18 06/21/18 Narrative: GENERAL: Elderly female sitting up in bed in [facility]. HEENT: Bandage over scalp laceration. Pupils equal and round. No scleral icterus. HEART: RRR no m/r/g. LUNGS: CTAB without wheezes or crackles. ABDOMEN: +BS, soft, NT, ND. No HSM. No guarding or rebound. EXTREMITIES: No LE edema. NEURO: Awake and alert. Only oriented to person. Results - Labs CBC & Chem 7: 06/18/18 10:07 06/18/18 10:07 - Procedures POSTERIOR CLOSURE OF LEFT OCCIPITAL SCALP WOUND BY PLASTICS ON 06-14 Assessment and Plan - Assessment (1) Hematoma of left parietal scalp Code(s): S00.03XA - Contusion of scalp, initial encounter Status: Acute (2) Anemia Code(s): D64.9 - Anemia, unspecified Status: Acute (3) Cognitive disorder Code(s): F09 - Unspecified mental disorder due to known physiological condition Status: Acute (4) Major neurocognitive disorder as late effect of traumatic brain injury with behavioral disturbance Code(s): S06.9X9S - Unspecified intracranial injury with loss of consciousness of unspecified duration, sequela; F02.81 - Dementia in other diseases classified elsewhere with behavioral disturbance Status: Acute - Plan 72 year old female with history of CAD s/p CABG, pacemaker, and recent traumatic subdural hematoma following a fall admitted on 06/11 for persistent bleeding from scalp since her discharge on 06/02. Patient treated for the wound. However her dementia symptoms are more pronounced. She is not safe to go back to living by herself. She requires SNF placement with possibly a locked unit. 1. L scalp hematoma - Plastic surgery consulted and patient s/p scalp rotation flap 06/14 - Flap healing well - Daily bacitracin Xeroform to incision by nursing 2. Acute blood loss anemia - Transfused 2 units on 06/14 and 06/16 - Hemoglobin now stable, up to 13.9 3. Elevated LFTs - AST 90-100s and ALT 50-90s during this admission - Ammonia level normal - Tbili just mildly elevated - Alkaline phosphatase has been normal - Liver U/S shows unremarkable liver and perhaps some findings of chronic cholecystitis but patient not complaining of abdominal pain - Hepatitis panel positive for HCV Ab - HCV RNA pending - Avoid hepatotoxic agents - Avoid Tylenol - Unclear of patient's EtOH use given she is a poor historian and confused but her AST>ALT -Hepatitis C can be further followed as an outpatient since patient not symptomatic at this time 4. Hypertension -Blood pressure medications have been titrated. - Continue Norvasc to 10 mg, Coreg to 12.5 mg BID - hydralazine 5. Cognitive disorder/probable dementia with behavioral disturbances: - Discussed the history at length with the patient's daughter. Based on the history and the current presentation, the patient is exhibiting dementia with behavioral disturbances. -Appreciate neuropsychology input. Agree with adding trazodone at bedtime to help with sleep. Behavior modification to help with sleep/wake cycle. -Discussed long-term options with the patient's daughter. Plan for a long term facility placement 5. CAD - S/P CABG and pacemaker placement - Continue beta tao 6. Hypothyroidism - TSH 9.15 with low free T4 - Reportedly on 25 mcg Levothyroxine at home, increase to 50 mcg - Check TSH in 6 weeks Discharge Planning: Discharge on 06/21/18. Case management working on finding an accepting facility.
[2018-06-23] MEDS: hydrALAZINE 25 MG Tablet PO SCH ×3 (06:04→22:04)
[2018-06-23] MEDS: Levothyroxine 50 MCG Tablet PO SCH (06:04)
[2018-06-23] MEDS: Lisinopril 20 MG Tablet PO SCH (09:51)
[2018-06-23] MEDS: amLODIPine 10 MG Tablet PO SCH (09:51)
[2018-06-23] MEDS: Carvedilol 12.5 MG Tablet PO SCH ×2 (09:51→20:26)
--- NOTE | 2018-06-23 09:58 | P.PN ---
Subjective Interval history: Patient seen and examined this morning, their vitals are stable and the patient is afebrile. Wants to know when she can go home. States her son owns this place and is keeping her here. She denies any difficulty breathing. Physical Exam Vital signs: Vital Signs 06/22/18 12:00 06/22/18 16:00 06/22/18 20:00 Temperature 98.1 F 97.5 F L 97.8 F Pulse Rate 65 65 73 Respiratory Rate 17 18 17 Blood Pressure 148/72 H 133/65 140/70 Pulse Oximetry 97 99 99 06/23/18 00:00 06/23/18 04:00 06/23/18 08:00 Temperature 97.7 F 97.8 F 99.0 F Pulse Rate 71 70 76 Respiratory Rate 16 17 17 Blood Pressure 142/71 H 138/69 157/74 H Pulse Oximetry 99 99 98 Intake & Output 06/22/18 06/23/18 06/23/18 18:59 06:59 18:59 Intake Total 480 / 480 480 / 480 Balance 480 / 480 480 / 480 Weight 57 kg Intake: Oral 480 / 480 480 / 480 Other: # Voids 2 2 Date of Last Bowel Movement 06/21/18 06/22/18 # Bowel Movements 1 Narrative: GENERAL: Elderly female sitting up in bed in [facility]. HEENT: Bandage over scalp laceration. Pupils equal and round. No scleral icterus. HEART: RRR no m/r/g. LUNGS: CTAB without wheezes or crackles. ABDOMEN: +BS, soft, NT, ND. No HSM. No guarding or rebound. EXTREMITIES: No LE edema. Bilat UE in restraints. NEURO: Awake and alert. Only oriented to person. Pleasantly demented. Results - Labs CBC & Chem 7: 06/18/18 10:07 06/18/18 10:07 - Imaging ITS Impressions Head CT 06/11/18 09:56 CONCLUSION: 1. Large left posterior scalp hematoma without underlying skull fracture or acute intracranial abnormality. 2. Senescent changes. . Lumbar Spine CT 06/15/18 00:00 CONCLUSION: 1. There is no evidence for acute compression. Degenerative changes as above with radiographically significant spinal stenosis at L4-5. Thoracic Spine CT 06/15/18 00:00 CONCLUSION: Chronic degenerative changes without any significant compromise to the exiting nerve roots or the thecal sac. Liver Ultrasound 06/18/18 00:00 CONCLUSION: 1. Nonshadowing stone versus debris in the gallbladder 2. Chronic cholecystitis would be consideration. - Procedures POSTERIOR CLOSURE OF LEFT OCCIPITAL SCALP WOUND BY PLASTICS ON 06-14 Assessment and Plan - Assessment (1) Hematoma of left parietal scalp Code(s): S00.03XA - Contusion of scalp, initial encounter Status: Acute (2) Anemia Code(s): D64.9 - Anemia, unspecified Status: Acute (3) Cognitive disorder Code(s): F09 - Unspecified mental disorder due to known physiological condition Status: Acute (4) Major neurocognitive disorder as late effect of traumatic brain injury with behavioral disturbance Code(s): S06.9X9S - Unspecified intracranial injury with loss of consciousness of unspecified duration, sequela; F02.81 - Dementia in other diseases classified elsewhere with behavioral disturbance Status: Acute - Plan 72 year old female with history of CAD s/p CABG, pacemaker, and recent traumatic subdural hematoma following a fall admitted on 06/11 for persistent bleeding from scalp since her discharge on 06/02. Patient intermittently required restraints during hospitalization. Clinically stable for discharge but unsafe discharge plan given that the patient has dementia and lives alone. Her daughter who is a power of jig and fixture maker and assisted with discharge plans. The patient was discharged to SNF on 06/21. Case management is still working on finding an accepting facility. 1. L scalp hematoma - Plastic surgery consulted and patient s/p scalp rotation flap 06/14 - Flap healing well - Daily bacitracin Xeroform to incision by nursing 2. Acute blood loss anemia - Transfused 2 units on 06/14 and 06/16 - Hemoglobin stable 3. Elevated LFTs - AST 90-100s and ALT 50-90s during this admission - Ammonia level normal - Tbili just mildly elevated - Alkaline phosphatase has been normal - Liver U/S shows unremarkable liver and perhaps some findings of chronic cholecystitis but patient not complaining of abdominal pain - Hepatitis panel positive for HCV Ab - HCV RNA pending - Avoid hepatotoxic agents - Avoid Tylenol - Unclear of patient's EtOH use given she is a poor historian and confused but her AST>ALT - Continue to monitor 4. Hypertension - BPs elevated all throughout the night - Continue Norvasc to 10 mg, Coreg to 12.5 mg BID, hydralazine 75 mg TID - Clonidine & vasotec PRN - Continue to closely follow 5. CAD - S/P CABG and pacemaker placement - Continue beta tao 6. Hypothyroidism - TSH 9.15 with low free T4 - Reportedly on 25 mcg Levothyroxine at home, increase to 50 mcg - Check TSH in 6 weeks 7. Dementia with behavioral disturbance, cognitive disorder - Neurobehav has evaluated the patient, "Ongoing areas of concern will include behavioral impulsivity, lack of insight and judgment, which is expected to improve with time and treatment. This patient is not considered safe to discharge home without supervision at this point in her recovery process." - May consider haldol 1 mg BID and titrate to effect DVT prophylaxis: SCDs Discharge Planning: Discharged 06/21, patient needs SNF with transition to detention, will need secure unit. Daughter is POA.
[2018-06-24] MEDS: Levothyroxine 50 MCG Tablet PO SCH (05:54)
[2018-06-24] MEDS: hydrALAZINE 25 MG Tablet PO SCH ×3 (05:58→22:14)
[2018-06-24] MEDS: Carvedilol 12.5 MG Tablet PO SCH ×2 (08:00→22:13)
[2018-06-24] MEDS: amLODIPine 10 MG Tablet PO SCH (08:00)
[2018-06-24] MEDS: Lisinopril 20 MG Tablet PO SCH (08:00)
--- NOTE | 2018-06-24 10:05 | P.PN ---
Subjective Interval history: Patient seen and examined this morning, their vitals are stable and the patient is afebrile. No further events after yesterday afternoon of patient trying to leave the floor. She was moved to a room close to the nurse station. She is talking to her friend on the phone. Per nurse patient did call 911 yesterday. Physical Exam Vital signs: Vital Signs 06/23/18 12:00 06/23/18 16:00 06/23/18 19:41 Temperature 97.9 F 98.2 F 98.6 F Pulse Rate 77 75 77 Respiratory Rate 16 18 18 Blood Pressure 133/62 115/64 153/72 H Pulse Oximetry 100 97 98 06/24/18 00:00 06/24/18 04:00 06/24/18 07:58 Temperature 98.9 F 97.8 F 99.3 F Pulse Rate 66 60 67 Respiratory Rate 18 16 18 Blood Pressure 93/52 L 115/59 L 133/63 Pulse Oximetry 99 98 98 Intake & Output 06/23/18 06/24/18 06/24/18 18:59 06:59 18:59 Intake Total 675 / 675 Balance 675 / 675 Weight 56 kg Intake: Oral 675 / 675 Other: # Voids 2 Date of Last Bowel Movement 06/22/18 06/22/18 # Bowel Movements 0 Narrative: GENERAL: Elderly female sitting up in bed in [facility]. HEENT: Stables around scalp incision, dried blood noted. Pupils equal and round. No scleral icterus. HEART: RRR no m/r/g. LUNGS: CTAB without wheezes or crackles. ABDOMEN: +BS, soft, NT, ND. No HSM. No guarding or rebound. EXTREMITIES: No LE edema. Bilat UE in restraints. NEURO: Awake and alert. Only oriented to person. Pleasantly demented. Results - Labs CBC & Chem 7: 06/18/18 10:07 06/18/18 10:07 - Procedures POSTERIOR CLOSURE OF LEFT OCCIPITAL SCALP WOUND BY PLASTICS ON 06-14 Assessment and Plan - Assessment (1) Hematoma of left parietal scalp Code(s): S00.03XA - Contusion of scalp, initial encounter Status: Acute (2) Anemia Code(s): D64.9 - Anemia, unspecified Status: Acute (3) Cognitive disorder Code(s): F09 - Unspecified mental disorder due to known physiological condition Status: Acute (4) Major neurocognitive disorder as late effect of traumatic brain injury with behavioral disturbance Code(s): S06.9X9S - Unspecified intracranial injury with loss of consciousness of unspecified duration, sequela; F02.81 - Dementia in other diseases classified elsewhere with behavioral disturbance Status: Acute - Plan 72 year old female with history of CAD s/p CABG, pacemaker, and recent traumatic subdural hematoma following a fall admitted on 06/11 for persistent bleeding from scalp since her discharge on 06/02. Patient intermittently required restraints during hospitalization. Clinically stable for discharge but unsafe discharge plan given that the patient has dementia and lives alone. Her daughter who is a power of compliance attorney and assisted with discharge plans. The patient was discharged to SNF on 06/21. Case management is still working on finding an accepting facility. 1. L scalp hematoma - Plastic surgery consulted and patient s/p scalp rotation flap 06/14 - Flap healing well - Daily bacitracin Xeroform to incision by nursing 2. Acute blood loss anemia - Transfused 2 units on 06/14 and 06/16 - Hemoglobin stable 3. Elevated LFTs - AST 90-100s and ALT 50-90s during this admission - Ammonia level normal - Tbili just mildly elevated - Alkaline phosphatase has been normal - Liver U/S shows unremarkable liver and perhaps some findings of chronic cholecystitis but patient not complaining of abdominal pain - Hepatitis panel positive for HCV Ab - HCV RNA pending - Avoid hepatotoxic agents - Avoid Tylenol - Unclear of patient's EtOH use given she is a poor historian and confused but her AST>ALT - Continue to monitor 4. Hypertension - BPs elevated all throughout the night - Continue Norvasc to 10 mg, Coreg to 12.5 mg BID, hydralazine 75 mg TID - Clonidine & vasotec PRN - Continue to closely follow 5. CAD - S/P CABG and pacemaker placement - Continue beta tao 6. Hypothyroidism - TSH 9.15 with low free T4 - Reportedly on 25 mcg Levothyroxine at home, increase to 50 mcg - Check TSH in 6 weeks 7. Dementia with behavioral disturbance, cognitive disorder - Neurobehav has evaluated the patient, "Ongoing areas of concern will include behavioral impulsivity, lack of insight and judgment, which is expected to improve with time and treatment. This patient is not considered safe to discharge home without supervision at this point in her recovery process." - May consider haldol 1 mg BID and titrate to effect DVT prophylaxis: SCDs Discharge Planning: Discharged 06/21, patient needs SNF with transition to [facility], will need secure unit. Daughter is POA.
[2018-06-25] MEDS: Levothyroxine 50 MCG Tablet PO SCH (05:40)
[2018-06-25] MEDS: hydrALAZINE 25 MG Tablet PO SCH ×2 (05:50→14:00)
--- NOTE | 2018-06-25 08:58 | P.PN ---
Subjective Interval history: Patient seen and examined this morning, their vitals are stable and the patient is afebrile. No overnight events. Patient was calm overnight and this morning. Has been out of restraints. Physical Exam Vital signs: Vital Signs 06/24/18 12:00 06/24/18 16:00 06/24/18 20:00 Temperature 98.4 F 98.6 F 97.5 F L Pulse Rate 64 67 66 Respiratory Rate 18 18 18 Blood Pressure 130/60 124/64 106/59 L Pulse Oximetry 98 99 97 06/25/18 00:00 06/25/18 04:00 Temperature 98.5 F 97.3 F L Pulse Rate 70 66 Respiratory Rate 18 Blood Pressure 105/55 L 102/58 L Pulse Oximetry 98 100 Intake & Output 06/24/18 06/25/18 06/25/18 18:59 06:59 18:59 Weight 54.5 kg Other: # Voids 1 Date of Last Bowel Movement 06/22/18 06/25/18 Narrative: GENERAL: Elderly female sitting up in bed in [facility]. HEENT: Scalp incision c/d/i, dried blood noted. Pupils equal and round. No scleral icterus. HEART: RRR no m/r/g. LUNGS: CTAB without wheezes or crackles. ABDOMEN: +BS, soft, NT, ND. No HSM. No guarding or rebound. EXTREMITIES: No LE edema. NEURO: Awake and alert. Only oriented to person. Pleasantly demented. Results - Labs CBC & Chem 7: 06/18/18 10:07 06/18/18 10:07 - Procedures POSTERIOR CLOSURE OF LEFT OCCIPITAL SCALP WOUND BY PLASTICS ON 06-14 Assessment and Plan - Assessment (1) Hematoma of left parietal scalp Code(s): S00.03XA - Contusion of scalp, initial encounter Status: Acute (2) Anemia Code(s): D64.9 - Anemia, unspecified Status: Acute (3) Cognitive disorder Code(s): F09 - Unspecified mental disorder due to known physiological condition Status: Acute (4) Major neurocognitive disorder as late effect of traumatic brain injury with behavioral disturbance Code(s): S06.9X9S - Unspecified intracranial injury with loss of consciousness of unspecified duration, sequela; F02.81 - Dementia in other diseases classified elsewhere with behavioral disturbance Status: Acute - Plan 72 year old female with history of CAD s/p CABG, pacemaker, and recent traumatic subdural hematoma following a fall admitted on 06/11 for persistent bleeding from scalp since her discharge on 06/02. Patient intermittently required restraints during hospitalization. Clinically stable for discharge but unsafe discharge plan given that the patient has dementia and lives alone. Her daughter who is a power of corporate associate attorney and assisted with discharge plans. The patient was discharged to SNF on 06/21. Awaiting placement, intermittently required restraints because she was attempting to leave the floor, was caught in the hallway walking towards exit. Has since been calm and not requiring restraints. Potential placement, must be 24 hrs without restraints. 1. L scalp hematoma - Plastic surgery consulted and patient s/p scalp rotation flap 06/14 - Flap healing well - Daily bacitracin Xeroform to incision by nursing 2. Acute blood loss anemia - Transfused 2 units on 06/14 and 06/16 - Hemoglobin stable 3. Elevated LFTs - AST 90-100s and ALT 50-90s during this admission - Ammonia level normal - Tbili just mildly elevated - Alkaline phosphatase has been normal - Liver U/S shows unremarkable liver and perhaps some findings of chronic cholecystitis but patient not complaining of abdominal pain - Hepatitis panel positive for HCV Ab - HCV RNA pending - Avoid hepatotoxic agents - Avoid Tylenol - Unclear of patient's EtOH use given she is a poor historian and confused but her AST>ALT - Continue to monitor 4. Hypertension Currently stable - Continue Norvasc to 10 mg, Coreg to 12.5 mg BID, hydralazine 75 mg TID - Clonidine & vasotec PRN 5. CAD - S/P CABG and pacemaker placement - Continue beta tao 6. Hypothyroidism - TSH 9.15 with low free T4 - Reportedly on 25 mcg Levothyroxine at home, increase to 50 mcg - Check TSH in 6 weeks 7. Dementia with behavioral disturbance, cognitive disorder - Neurobehav has evaluated the patient, "Ongoing areas of concern will include behavioral impulsivity, lack of insight and judgment, which is expected to improve with time and treatment. This patient is not considered safe to discharge home without supervision at this point in her recovery process." - May consider haldol 1 mg BID and titrate to effect DVT prophylaxis: SCDs Discharge Planning: Discharged 06/21, patient needs SNF with transition to [facility], will need secure unit. Daughter is POA. Potential placement, patient must remain out of restraints for 24 hrs.
[2018-06-25] MEDS: Lisinopril 20 MG Tablet PO SCH (09:29)
[2018-06-25] MEDS: amLODIPine 10 MG Tablet PO SCH (09:29)
[2018-06-25] MEDS: Carvedilol 12.5 MG Tablet PO SCH ×2 (09:29→21:19)
[2018-06-26] MEDS: hydrALAZINE 25 MG Tablet PO SCH ×4 (00:04→23:20)
[2018-06-26] MEDS: Levothyroxine 50 MCG Tablet PO SCH (06:19)
[2018-06-26] MEDS: amLODIPine 10 MG Tablet PO SCH (09:25)
[2018-06-26] MEDS: Lisinopril 20 MG Tablet PO SCH (09:25)
[2018-06-26] MEDS: Carvedilol 12.5 MG Tablet PO SCH ×2 (09:25→20:19)
--- NOTE | 2018-06-26 10:11 | P.PNIM ---
Subjective Interval history: Mrs. Arce was afebrile with stable vital signs overnight. Per nursing staff, patient has been frustrated and has not been taking some of her medications. Patient reports that she has had some drainage from her scalp wound when she lays on it. She has been walking with walker with PT but does not like it. She does not report chest pain, shortness of breath, abnormal BM, or urination. Patient hopes to leave hospital soon. Patient oriented to year but not month. Physical Exam Vital signs: Vital Signs 06/25/18 11:55 06/25/18 17:02 06/25/18 20:00 Temperature 99.2 F 99.2 F 98.3 F Pulse Rate 60 60 67 Respiratory Rate 16 16 18 Blood Pressure 113/58 L 125/58 L 112/57 L Pulse Oximetry 99 99 96 06/26/18 00:00 06/26/18 04:00 06/26/18 08:00 Temperature 98.4 F 98.4 F 98.3 F Pulse Rate 61 60 63 Respiratory Rate 18 18 16 Blood Pressure 92/50 L 129/61 116/56 L Pulse Oximetry 97 92 L 98 Intake & Output 06/25/18 06/26/18 06/26/18 18:59 06:59 18:59 Weight 54.5 kg Other: # Voids 1 3 Date of Last Bowel Movement 06/25/18 06/25/18 Narrative: GENERAL: no acute distress HEENT: Scalp incision c/d/i, dried blood noted; some blood on pillow but not active bleeding. EOM I HEART: RRR no m/r/g. Normal perfusion; no LE edema LUNGS: CTAB without wheezes ABDOMEN: Normal bowel sounds; soft, nontender MSK: Grossly normal ROM and motor function; weak but could reposition in bed with assistance NEURO: Awake and alert. Oriented to year but not month. some confusion Results - Labs CBC & Chem 7: 06/18/18 10:07 06/18/18 10:07 - Procedures POSTERIOR CLOSURE OF LEFT OCCIPITAL SCALP WOUND BY PLASTICS ON 06-14 Assessment and Plan - Assessment (1) Hematoma of left parietal scalp Code(s): S00.03XA - Contusion of scalp, initial encounter Status: Acute (2) Anemia Code(s): D64.9 - Anemia, unspecified Status: Acute (3) Cognitive disorder Code(s): F09 - Unspecified mental disorder due to known physiological condition Status: Acute (4) Major neurocognitive disorder as late effect of traumatic brain injury with behavioral disturbance Code(s): S06.9X9S - Unspecified intracranial injury with loss of consciousness of unspecified duration, sequela; F02.81 - Dementia in other diseases classified elsewhere with behavioral disturbance Status: Acute - Plan 72 year old female with history of CAD s/p CABG, pacemaker, and recent traumatic subdural hematoma following a fall admitted on 06/11 for persistent bleeding from scalp since her discharge on 06/02. Patient intermittently required restraints during hospitalization. Clinically stable for discharge but unsafe discharge plan given that the patient has dementia and lives alone. Her daughter who is a power of assistant district attorney and assisted with discharge plans. The patient was discharged to SNF on 06/21. Awaiting placement, intermittently required restraints because she was attempting to leave the floor, was caught in the hallway walking towards exit. Has since been calm and not requiring restraints. Potential placement, must be 24 hrs without restraints. Dementia with behavioral disturbance, cognitive disorder Impression: Neurobehav has evaluated the patient, "Ongoing areas of concern will include behavioral impulsivity, lack of insight and judgment, which is expected to improve with time and treatment. This patient is not considered safe to discharge home without supervision at this point in her recovery process." - May consider haldol 1 mg BID and titrate to effect -Placement attempts with case management and daughter -Continue PT/OT L scalp hematoma - Plastic surgery consulted and patient s/p scalp rotation flap 06/14 - Flap healing well - Daily bacitracin Xeroform to incision by nursing Acute blood loss anemia Impression: Transfused 2 units on 06/14 and 06/16 - Hemoglobin stable;will monitor CBC periodically Elevated LFTs Impression: AST 90-100s and ALT 50-90s during this admission.Mildly elevated TBILI. Normal Alkaline phosphatase, normal ammonia. Liver U/S shows unremarkable liver and perhaps some findings of chronic cholecystitis but patient not complaining of abdominal pain Hepatitis panel positive for HCV Ab; former treatment and PCR RNA negative - Avoid hepatotoxic agents - Continue to monitor LFTs periodically Hypertension Impression: Currently stable 06/26- refusing medications - Continue Norvasc to 10 mg, Coreg to 12.5 mg BID, hydralazine 75 mg TID - Clonidine & vasotec PRN -Patent reports she will take medications if needed CAD - S/P CABG and pacemaker placement - Continue beta tao Hypothyroidism - TSH 9.15 with low free T4 - Reportedly on 25 mcg Levothyroxine at home, increase to 50 mcg - Check TSH in 6 weeks DVT prophylaxis: SCDs Code Status: Full code Discharge Planning: Discharged 06/21, patient needs SNF with transition to skilled nursing, will need secure unit. Daughter is POA. Potential placement, patient must remain out of restraints for 24 hrs
[2018-06-26 16:36] VITALS: RESP 18
[2018-06-26] MEDS ORDERED: Acetaminophen 500 MG Tablet PO PRN (20:25)
[2018-06-27] MEDS: Levothyroxine 50 MCG Tablet PO SCH (06:08)
[2018-06-27] MEDS: hydrALAZINE 25 MG Tablet PO SCH ×3 (06:23→22:18)
[2018-06-27] MEDS: Carvedilol 12.5 MG Tablet PO SCH ×2 (10:20→22:19)
[2018-06-27] MEDS: amLODIPine 10 MG Tablet PO SCH (10:20)
[2018-06-27] MEDS: Lisinopril 20 MG Tablet PO SCH (10:20)
--- NOTE | 2018-06-27 12:17 | P.PNIM ---
Subjective Interval history: Mrs. Arce was afebrile with stable vital signs overnight. Nursing staff report that patient has been trying to leave the hospital. She has also had intermittent confused answers and some concern for underlying Psych disease present. Patient interviewed in hallway dressed in civilian clothes. Patient agreeable to answering some questions; she states she was previously prescribed benzodiazepine and Zoloft but does not report specific psychiatric diagnosis. Patient then left hallway saying she was tired of listening to staff asking her to stay; security called to help escort patient to room. Patient refused some of exam and became agitated Physical Exam Vital signs: Vital Signs 06/26/18 16:00 06/27/18 00:00 06/27/18 00:41 Temperature 98.9 F 98.2 F 98.2 F Pulse Rate 70 73 73 Respiratory Rate 18 18 18 Blood Pressure 98/48 L 107/50 L 107/50 L Pulse Oximetry 98 95 95 06/27/18 02:00 06/27/18 08:00 Temperature 97.6 F 98.1 F Pulse Rate 86 61 Respiratory Rate 18 18 Blood Pressure 108/76 141/73 H Pulse Oximetry 98 Intake & Output 06/26/18 06/27/18 06/27/18 18:59 06:59 18:59 Intake Total 600 / 600 Balance 600 / 600 Weight 54.5 kg Intake: Oral 600 / 600 Other: # Voids 3 Date of Last Bowel Movement 06/25/18 06/25/18 Narrative: GENERAL: no acute distress HEENT: Scalp incision c/d/i, dried blood noted; some blood on pillow but not active bleeding. EOM I HEART: Grossly normal perfusion; patient refused exam LUNGS: Normal rate; patient refused auscultation ABDOMEN: patient declined exam MSK: Grossly normal ROM and motor function when ambulating NEURO: Awake and alert. some confusion Results - Labs CBC & Chem 7: 06/18/18 10:07 06/18/18 10:07 - Procedures POSTERIOR CLOSURE OF LEFT OCCIPITAL SCALP WOUND BY PLASTICS ON 06-14 Assessment and Plan - Assessment (1) Hematoma of left parietal scalp Code(s): S00.03XA - Contusion of scalp, initial encounter Status: Acute (2) Anemia Code(s): D64.9 - Anemia, unspecified Status: Acute (3) Cognitive disorder Code(s): F09 - Unspecified mental disorder due to known physiological condition Status: Acute (4) Major neurocognitive disorder as late effect of traumatic brain injury with behavioral disturbance Code(s): S06.9X9S - Unspecified intracranial injury with loss of consciousness of unspecified duration, sequela; F02.81 - Dementia in other diseases classified elsewhere with behavioral disturbance Status: Acute - Plan 72 year old female with history of CAD s/p CABG, pacemaker, and recent traumatic subdural hematoma following a fall admitted on 06/11 for persistent bleeding from scalp since her discharge on 06/02. Patient intermittently required restraints during hospitalization. Clinically stable for discharge but unsafe discharge plan given that the patient has dementia and lives alone. Her daughter who is a power of sports attorney and assisted with discharge plans. The patient was discharged to SNF on 06/21. Awaiting placement, intermittently required restraints because she was attempting to leave the floor, was caught in the hallway walking towards exit. Has since been calm and not requiring restraints. Potential placement, must be 24 hrs without restraints. Dementia with behavioral disturbance, cognitive disorder History of psychiatric illness Impression: Neurobehav has evaluated the patient, "Ongoing areas of concern will include behavioral impulsivity, lack of insight and judgment, which is expected to improve with time and treatment. This patient is not considered safe to discharge home without supervision at this point in her recovery process." - May consider haldol 1 mg BID and titrate to effect -Placement attempts with case management and daughter -Continue PT/OT -After discussion with nursing staff and subsequent revelation by patient of some underlying Psych illness that was treated previously with Benzodiazepine and SSRI, will consult Psychiatry to see if some of her symptoms are related to underlying primary psych illness rather than secondary to fall/brain trauma L scalp hematoma - Plastic surgery consulted and patient s/p scalp rotation flap 06/14 - Flap healing well - Daily bacitracin Xeroform to incision by nursing Acute blood loss anemia Impression: Transfused 2 units on 06/14 and 06/16 - Hemoglobin stable;will monitor CBC periodically Elevated LFTs Impression: AST 90-100s and ALT 50-90s during this admission.Mildly elevated TBILI. Normal Alkaline phosphatase, normal ammonia. Liver U/S shows unremarkable liver and perhaps some findings of chronic cholecystitis but patient not complaining of abdominal pain Hepatitis panel positive for HCV Ab; former treatment and PCR RNA negative - Avoid hepatotoxic agents - Continue to monitor LFTs periodically Hypertension Impression: Currently stable 06/27- stable - Continue Norvasc to 10 mg, Coreg to 12.5 mg BID, hydralazine 75 mg TID - Clonidine & vasotec PRN -Patent reports she will take medications if needed CAD - S/P CABG and pacemaker placement - Continue beta tao Hypothyroidism - TSH 9.15 with low free T4 - Reportedly on 25 mcg Levothyroxine at home, increase to 50 mcg - Check TSH in 6 weeks DVT prophylaxis: SCDs Code Status: Full code Discharge Planning: Discharged 06/21, patient needs SNF with transition to skilled nursing, will need secure unit. Daughter is POA. Pending psych eval Potential placement, patient must remain out of restraints for 24 hrs
[2018-06-27 14:50] LABS: Baso % (Auto) 0.3 % (0.0-2.0); Eos % (Auto) 0.1 % (0.0-4.0); Hematocrit 30.9 % (35.0-46.0); Hemoglobin 10.9 gm/dL (11.6-15.3); Lymph # (Auto) 0.7 th/mm3 (1.0-4.8); Lymph % (Auto) 6.7 % (9.0-44.0); Mean Corpuscular HGB Conc 35.3 % (32.0-36.0); Mean Corpuscular Hemoglobin 30.7 pg (27.0-34.0); Mean Corpuscular Volume 87.1 fL (80.0-100.0); Mean Platelet Volume 6.9 fL (7.0-11.0); Mono # (Auto) 0.8 th/mm3 (0.0-0.9); Mono % (Auto) 7.7 % (0.0-8.0); Neut # (Auto) 8.7 th/mm3 (1.8-7.7); Neut % (Auto) 85.2 % (16.0-70.0); Platelet Count 229 th/mm3 (150-450); Red Blood Count 3.55 mil/mm3 (4.00-5.30); Red Cell Distribution Width 15.6 % (11.6-17.2); White Blood Count 10.2 th/mm3 (4.0-11.0)
[2018-06-27 15:18] LABS: Anion Gap 13 meq/L (5-15)
[2018-06-27 15:37] LABS: Alanine Aminotransferase 72 U/L (10-53); Albumin 2.6 g/dL (3.4-5.0); Alkaline Phosphatase 94 U/L (45-117); Aspartate Aminotransferase 117 U/L (15-37); Blood Urea Nitrogen 13 mg/dL (7-18); Calcium 7.6 mg/dL (8.5-10.1); Carbon Dioxide 24.2 meq/L (21.0-32.0); Chloride 93 meq/L (98-107); Glomerular Filtration Rate 53 mL/min (>89); Glucose,Random 89 mg/dL (74-106); Sodium 130 meq/L (136-145); Total Protein 6.5 g/dL (6.4-8.2)
[2018-06-27 15:40] LABS: Potassium 2.9 meq/L (3.5-5.1)
[2018-06-27 23:24] LABS: Calcium 8.1 mg/dL (8.5-10.1); Carbon Dioxide 24.6 meq/L (21.0-32.0); Magnesium 1.8 mg/dL (1.5-2.5)
[2018-06-27 23:29] LABS: Potassium 2.9 meq/L (3.5-5.1)
[2018-06-28 05:00] VITALS: TEMP 98.1; O2SAT 96
[2018-06-28] MEDS: Levothyroxine 50 MCG Tablet PO SCH (06:43)
[2018-06-28] MEDS: hydrALAZINE 25 MG Tablet PO SCH (06:43)
[2018-06-28 08:07] LABS: Baso % (Auto) 0.3 % (0.0-2.0); Eos % (Auto) 0.2 % (0.0-4.0); Hematocrit 29.5 % (35.0-46.0); Hemoglobin 10.6 gm/dL (11.6-15.3); Lymph # (Auto) 0.6 th/mm3 (1.0-4.8); Lymph % (Auto) 6.3 % (9.0-44.0); Mean Corpuscular HGB Conc 35.8 % (32.0-36.0); Mean Corpuscular Hemoglobin 30.6 pg (27.0-34.0); Mean Corpuscular Volume 85.6 fL (80.0-100.0); Mean Platelet Volume 6.9 fL (7.0-11.0); Mono # (Auto) 0.5 th/mm3 (0.0-0.9); Neut # (Auto) 7.9 th/mm3 (1.8-7.7); Neut % (Auto) 87.2 % (16.0-70.0); Platelet Count 262 th/mm3 (150-450); Red Blood Count 3.45 mil/mm3 (4.00-5.30); Red Cell Distribution Width 15.4 % (11.6-17.2); White Blood Count 9.1 th/mm3 (4.0-11.0)
[2018-06-28 08:33] LABS: Calcium 8.4 mg/dL (8.5-10.1); Carbon Dioxide 25.1 meq/L (21.0-32.0); Potassium 3.4 meq/L (3.5-5.1)
[2018-06-28] MEDS: Lisinopril 20 MG Tablet PO SCH (08:39)
[2018-06-28] MEDS: amLODIPine 10 MG Tablet PO SCH (08:39)
[2018-06-28] MEDS: Carvedilol 12.5 MG Tablet PO SCH (08:39)
[2018-06-28 08:44] VITALS: BP 138/68; PULSE 68
--- NOTE | 2018-06-28 10:49 | P.PNIM ---
Subjective Interval history: Mrs. Arce was afebrile with stable vital signs overnight. Patient denies complaints at this time. She reports 1 bowel movement daily and denies recent bleeding. No new nursing concerns. Patient does not report headache, chest pain, shortness of breath, or abnormal urination. Discussed medical history; patient has persistent confusion about her history / injury prior to hospitalization. Physical Exam Vital signs: Vital Signs 06/27/18 13:53 06/27/18 16:00 06/27/18 20:00 Temperature 98.3 F 97.6 F 97.7 F Pulse Rate 60 60 60 Respiratory Rate 18 18 18 Blood Pressure 132/60 126/58 L 120/58 L Pulse Oximetry 99 98 98 06/27/18 22:00 06/28/18 00:00 06/28/18 04:00 Temperature 97.3 F L 98.1 F Pulse Rate 65 70 67 Respiratory Rate 18 18 Blood Pressure 103/56 L 133/60 145/69 H Pulse Oximetry 94 L 96 06/28/18 06:44 06/28/18 08:00 Temperature 98.1 F Pulse Rate 67 68 Respiratory Rate 18 Blood Pressure 142/62 H 138/68 Pulse Oximetry 96 Intake & Output 06/27/18 06/28/18 06/28/18 18:59 06:59 18:59 Weight 58.6 kg Other: # Voids 1 2 Date of Last Bowel Movement 06/25/18 06/27/18 Narrative: GENERAL: no acute distress HEENT: Scalp incision c/d/i, minimal dried blood noted on pillow unchanged from previously but no visible bleeding from scalp incision. EOM I HEART: Regular rate and rhythm; normal perfusion LUNGS: CTAB; normal rate ABDOMEN: No pain to palpation; normal bowel sounds MSK: Grossly normal ROM and motor function NEURO: Awake and alert. some confusion. Normal cranial nerves. Normal peripheral sensory/motor function Results - Labs CBC & Chem 7: 06/28/18 06:51 06/28/18 06:51 Laboratory Results - last 24 hr 06/27/18 06/27/18 06/27/18 14:23 14:23 20:56 WBC 10.2 RBC 3.55 L Hgb 10.9 L Hct 30.9 L MCV 87.1 MCH 30.7 MCHC 35.3 RDW 15.6 Plt Count 229 D MPV 6.9 L Neut % (Auto) 85.2 H Lymph % (Auto) 6.7 L [place] % (Auto) 7.7 Eos % (Auto) 0.1 Baso % (Auto) 0.3 Neut # (Auto) 8.7 H Lymph # (Auto) 0.7 L [place] # (Auto) 0.8 Eos # (Auto) 0.0 Baso # (Auto) 0.0 WBC Differential . Differential Comment Auto diff final Sodium 130 L 129 L Potassium 2.9 L* 2.9 L* Chloride 93 L 92 L Carbon Dioxide 24.2 24.6 Anion Gap 13 12 BUN 13 13 Creatinine 1.02 H 0.93 Estimated GFR 53 L 59 L Random Glucose 89 81 Calcium 7.6 L 8.1 L Magnesium 1.8 Total Bilirubin 1.0 AST 117 H ALT 72 H Alkaline Phosphatase 94 Total Protein 6.5 Albumin 2.6 L 06/28/18 06/28/18 06:51 06:51 WBC 9.1 RBC 3.45 L Hgb 10.6 L Hct 29.5 L MCV 85.6 MCH 30.6 MCHC 35.8 RDW 15.4 Plt Count 262 MPV 6.9 L Neut % (Auto) 87.2 H Lymph % (Auto) 6.3 L [place] % (Auto) 6.0 Eos % (Auto) 0.2 Baso % (Auto) 0.3 Neut # (Auto) 7.9 H Lymph # (Auto) 0.6 L [place] # (Auto) 0.5 Eos # (Auto) 0.0 Baso # (Auto) 0.0 WBC Differential . Differential Comment Auto diff final Sodium 130 L Potassium 3.4 L Chloride 93 L Carbon Dioxide 25.1 Anion Gap 12 BUN 12 Creatinine 0.89 Estimated GFR 63 L Random Glucose 96 Calcium 8.4 L Magnesium Total Bilirubin AST ALT Alkaline Phosphatase Total Protein Albumin - Procedures POSTERIOR CLOSURE OF LEFT OCCIPITAL SCALP WOUND BY PLASTICS ON 06-14 Assessment and Plan - Assessment (1) Hematoma of left parietal scalp Code(s): S00.03XA - Contusion of scalp, initial encounter Status: Acute (2) Anemia Code(s): D64.9 - Anemia, unspecified Status: Acute (3) Cognitive disorder Code(s): F09 - Unspecified mental disorder due to known physiological condition Status: Acute (4) Major neurocognitive disorder as late effect of traumatic brain injury with behavioral disturbance Code(s): S06.9X9S - Unspecified intracranial injury with loss of consciousness of unspecified duration, sequela; F02.81 - Dementia in other diseases classified elsewhere with behavioral disturbance Status: Acute - Plan 73 year old female with history of CAD s/p CABG, pacemaker, and recent traumatic subdural hematoma following a fall admitted on 06/11 for persistent bleeding from scalp since her discharge on 06/02. Patient intermittently required restraints during hospitalization. Clinically stable for discharge but unsafe discharge plan given that the patient has dementia and lives alone. Her daughter who is a power of estate attorney and assisted with discharge plans. The patient was discharged to SNF on 06/21. Awaiting placement, intermittently required restraints because she was attempting to leave the floor, was caught in the hallway walking towards exit. Has since been calm and not requiring restraints. Potential placement, must be 24 hrs without restraints. Dementia with behavioral disturbance, cognitive disorder History of psychiatric illness Impression: Neurobehav has evaluated the patient, "Ongoing areas of concern will include behavioral impulsivity, lack of insight and judgment, which is expected to improve with time and treatment. This patient is not considered safe to discharge home without supervision at this point in her recovery process." -Continue PT/OT -After consideration of Psychiatry consultation yesterday due to prior treatment with SSRI/Benzodiazepine, will defer currently since stable and recommend outpatient follow-up with Psychiatry L scalp hematoma Impression: No visible bleeding; dried blood present on incision and minimal amount on pillow. No active bleeding inspected - Plastic surgery consulted and patient s/p scalp rotation flap 06/14 - Flap healing well - Daily bacitracin Xeroform to incision by nursing Acute blood loss anemia Impression: Bleeding on admission; 3 U transfused 06/14 Hgb trending- 9.7 (06/11)-> 6.8 (08/14)-> 3 uRBC-> 11.8 (06/17)-> 10.6 today. No active bleeding. MCV normal. Normal BM once daily -recommend outpatient Hemoccult -Recommend monitoring CBC as outpatient -Will give iron supplementation at discharge Elevated LFTs Impression: AST 90-100s and ALT 50-90s during this admission.Mildly elevated TBILI. Normal Alkaline phosphatase, normal ammonia. Liver U/S shows unremarkable liver and perhaps some findings of chronic cholecystitis but patient not complaining of abdominal pain Hepatitis panel positive for HCV Ab; former treatment and PCR RNA negative - Avoid hepatotoxic agents - Continue to monitor LFTs periodically Hypertension Impression: Currently stable 06/28- stable - Continue Norvasc to 10 mg, Coreg to 12.5 mg BID, hydralazine 75 mg TID - Clonidine & vasotec PRN -Patent reports she will take medications if needed CAD - S/P CABG and pacemaker placement - Continue beta tao Hypothyroidism - TSH 9.15 with low free T4 - Reportedly on 25 mcg Levothyroxine at home, increase to 50 mcg - Check TSH in 6 weeks Electrolyte abnormalities Impression: K 2.9 06/27. Mg 1.8-> 3.4 today -Will give an additional 40 mEq KCl today -Outpatient CMP to monitor K DVT prophylaxis: SCDs Code Status: Full code Discharge Planning: Planned discharge to accepting facility today
--- NOTE | 2018-06-29 01:04 | P.DS ---
Date of admission: 06/11/18 12:29 Primary care physician: Fahad Laguna Attending physician on discharge: John Barrett Anticipated date of discharge: 06/29/18 Brief History from admission: HPI from the admitting physician: This is a pleasant 72 y/o Female with CAD, status post CABG, who was discharged from this facility due to status post fall with secondary subdural Hematoma she was stable and discharged after clearance by Neurosurgery and Cardiology, came back to ER the patient continue bleeding from Scalp since discharged on 06/02/18, The patient states that she is not been able to get the bleeding to stop. She also reports associated headache and dizziness. Seen in Emergency room and discussed with Doctor Harrison, she will need evaluation by Plastic surgery and evaluate for probable Surgical procedure on scalp to remove clots and debridement of her necrotic tissue. Patient update on day of discharge: Mrs. Arce was afebrile with stable vital signs overnight. Patient denies complaints at this time. She reports 1 bowel movement daily and denies recent bleeding. No new nursing concerns. Patient does not report headache, chest pain, shortness of breath, or abnormal urination. Discussed medical history; patient has persistent confusion about her history / injury prior to hospitalization. DS: Diagnosis - Discharge Diagnosis (1) Hematoma of left parietal scalp Status: Acute (2) Anemia Status: Acute (3) Cognitive disorder Status: Acute (4) Major neurocognitive disorder as late effect of traumatic brain injury with behavioral disturbance Status: Acute DS: Medications - Discharge Medications Prescriptions: trazodone 25 mg PO HS #30 tab DS: Summary Hospital Course: Mrs. Arce is a 73 year old female with history of CAD s/p CABG, pacemaker, and recent traumatic subdural hematoma following a fall admitted to [facility] for persistent bleeding from scalp since her last discharge on 06/02; patient also found to have hypertensive urgency on admission. Plastic surgery was consulted for evaluation of scalp bleeding; patient underwent scalp rotation flap 06/14. Patient subsequently had improvement in incision healing. Patient had downtrending hemoglobin from 9.7 (06/11) to 6.8 08/14; she was transfused 3 units 06/14 and did not have subsequent active bleeding. Outpatient Hemoccult and Hgb testing were recommended. Patient's HTN was treated during hospitalization with Norvasc, Coreg, and Hydralazine. Patient was found to have mild transaminase elevations during hospitalization; she was tested for Hep C due to prior history but was found to have negative RNA PCR testing. Patient's hypothyroidism was also treated during hospitalization. Patient underwent physical and occupational therapy during hospitalization. Patient had continued periodic confusion and periodic behavioral disturbances during hospitalization; patient was discharged 06/28 for further rehabilitation per prior recommendations by neurobehavioral medicine; outpatient psychiatry referral recommended. - Time Spent with Patient Total time spent providing and/or coordinating discharge services: Less than 30 minutes - Quality: VTE Deep Vein Thrombosis/Pulmonary Embolism Present on Admission: No Exam Vital signs: Vital Signs 06/28/18 04:00 06/28/18 06:44 06/28/18 08:00 Temperature 98.1 F 98.1 F Pulse Rate 67 67 68 Respiratory Rate 18 18 Blood Pressure 145/69 H 142/62 H 138/68 Pulse Oximetry 96 96 Intake & Output 06/28/18 06/28/18 06/29/18 06:59 18:59 06:59 Weight 58.6 kg Other: # Voids 2 Date of Last Bowel Movement 06/25/18 06/27/18 Narrative: GENERAL: no acute distress HEENT: Scalp incision c/d/i, minimal dried blood noted on pillow unchanged from previously but no visible bleeding from scalp incision. EOM I HEART: Regular rate and rhythm; normal perfusion LUNGS: CTAB; normal rate ABDOMEN: No pain to palpation; normal bowel sounds MSK: Grossly normal ROM and motor function NEURO: Awake and alert. some confusion. Normal cranial nerves. Normal peripheral sensory/motor function Results Procedures completed during hospitalization: POSTERIOR CLOSURE OF LEFT OCCIPITAL SCALP WOUND BY PLASTICS ON 06-14 Labs on day of discharge: Labs from last 24 hours 06/28/18 06/28/18 06:51 06:51 WBC 9.1 RBC 3.45 L Hgb 10.6 L Hct 29.5 L MCV 85.6 MCH 30.6 MCHC 35.8 RDW 15.4 Plt Count 262 MPV 6.9 L Neut % (Auto) 87.2 H Lymph % (Auto) 6.3 L [place] % (Auto) 6.0 Eos % (Auto) 0.2 Baso % (Auto) 0.3 Neut # (Auto) 7.9 H Lymph # (Auto) 0.6 L [place] # (Auto) 0.5 Eos # (Auto) 0.0 Baso # (Auto) 0.0 WBC Differential . Differential Comment Auto diff final Sodium 130 L Potassium 3.4 L Chloride 93 L Carbon Dioxide 25.1 Anion Gap 12 BUN 12 Creatinine 0.89 Estimated GFR 63 L Random Glucose 96 Calcium 8.4 L - Impressions ITS Impressions Head CT 06/11/18 09:56 CONCLUSION: 1. Large left posterior scalp hematoma without underlying skull fracture or acute intracranial abnormality. 2. Senescent changes. . Lumbar Spine CT 06/15/18 00:00 CONCLUSION: 1. There is no evidence for acute compression. Degenerative changes as above with radiographically significant spinal stenosis at L4-5. Thoracic Spine CT 06/15/18 00:00 CONCLUSION: Chronic degenerative changes without any significant compromise to the exiting nerve roots or the thecal sac. Liver Ultrasound 06/18/18 00:00 CONCLUSION: 1. Nonshadowing stone versus debris in the gallbladder 2. Chronic cholecystitis would be consideration. Discharge Plan - Discharge Disposition Patient Disposition: 03 Discharge to SNF - Discharge Condition Condition: Good - Discharge Order Discharge Orders: Discharge Order (Routine); Ordered 06/28/18 Ordered By: Venus Cyr - Discharge Details Anticipated Discharge Date: 06/28/18 - Physicians Team Primary Care Provider: Fahad Laguna Attending Provider: John Barrett Other Providers: Austyn Liu MD ; [facility] ; Arnold Polo, PhD ; [facility]
--- NOTE | 2018-07-20 12:20 | P.OP ---
- Preoperative Diagnosis (1) Hematoma of left parietal scalp Date of procedure: 07/20/18 Procedure: Adjacent tissue rearrangement of left occipital scalp wound (54558, [id number]) Anesthesia: GETA Surgeon: Austyn Liu MD Operation and Findings: 73-year-old female who presented with a left occipital scalp wound following a fall several weeks previously with subsequent cephalo-hematoma. Risk benefits alternative treatments discussed. All questions answered and the patient expressed understanding. Patient elected to assume the risks of adjacent tissue rearrangement in the form of a scalp rotation flap for closure of her wound. Informed consent obtained. The surgical site was marked in the preoperative holding bay. The patient was taken to the operating room and all pressure points were padded. A surgical timeout was performed. After the smooth induction of general anesthesia, the surgical site was prepped and draped in the usual sterile fashion. The surgical site was instilled with quarter percent Marcaine with epinephrine. The wound was initially debrided of significant hematoma and devitalized wound edges which were roughly 1.5 cm circumferentially. The wound was found to be down to periosteum and roughly 6 cm in diameter after debridement of devitalized tissue. A scalp rotation flap was designed in the subgaleal plane. This rotated into the wound without undue tension. The surgical site was copiously irrigated. Hemostasis was ensured with bipolar cautery. The incisions were closed in multiple layers including multiple interrupted 3-0 Vicryl in the galeal layer, followed by 3-0 Vicryl in the deep dermis. Lastly the skin was closed with a running locking 4-0 chromic. The surgical site was cleaned and dressed with mupirocin ointment Xeroform gauze dry gauze fluffs and a craniotomy stockinette. All needle sponge and instrument counts were correct x2. The patient was awoken from anesthesia and arrived stable and doing well to the PACU.
== END 2018-06-28 12:58 ==
LOC: NEPC 08:50 → NEDA 12:29 → OBSVTOIN 12:29 → INTOOBSV 12:29 → NEDA 17:50 → HCIS 17:57 → N05 06-13 18:24
PROVIDERS: ADMIT Family Medicine; ATTEND Family Medicine
DX: K81.1 Chronic cholecystitis; Z78.1 Physical restraint status; E87.6 Hypokalemia; D62 Acute posthemorrhagic anemia; M48.061 Spinal stenosis, lumbar region without neurogenic claudication; F05 Delirium due to known physiological condition; E03.9 Hypothyroidism, unspecified; I25.10 Atherosclerotic heart disease of native coronary artery without angina pectoris; Z95.1 Presence of aortocoronary bypass graft; Z95.0 Presence of cardiac pacemaker; I10 Essential (primary) hypertension; F01.51 Vascular dementia, unspecified severity, with behavioral disturbance; B19.20 Unspecified viral hepatitis C without hepatic coma; I16.0 Hypertensive urgency; Z79.899 Other long term (current) drug therapy; S01.01XA Laceration without foreign body of scalp, initial encounter; S06.9X9S Unspecified intracranial injury with loss of consciousness of unspecified duration, sequela; F17.210 Nicotine dependence, cigarettes, uncomplicated

== ENCOUNTER 2018-07-06 18:12 | Inpatient (IN) ==
[2018-07-06] MEDS ORDERED: Sod Chloride 0.9% Inj 1,000 ML IV.SIG SCH ×2 (21:30→22:45)
--- NOTE | 2018-07-06 21:36 | ED ---
HPI General Chief complaint: Weakness Stated complaint: weakness, faint Time Seen by Provider: 07/06/18 21:18 History of Present Illness HPI narrative: 73-year-old female presents for evaluation of headache, lightheadedness, dizziness and nausea. she was admitted on June 01 for evaluation of intracranial bleed. She was discharged and then returned with persistent bleeding from her scalp which required repair by plastic surgery. She spent several additional days in the hospital before being discharged in early June to a rehab facility where she spent several days. According to her daughter she was discharged today but it as she was getting out of the car and walking to her, she felt significant lightheadedness and dizziness and had near syncope. The patient reports that she continues to feel lightheaded and dizzy symptoms are worse when she is walking. She reports a frontal headache, decreased appetite. She feels that she has not had much to eat or drink over the past several days. Symptoms are moderate, aggravated by decreased appetite and head trauma with no relieving factors. Denies chest pain, shortness of breath, abdominal pain, vomiting, diarrhea, dysuria. No other complaints. Related Data Home Medications Medication Instructions Recorded Confirmed levothyroxine [Synthroid] 100 mcg PO DAILY@0600 07/06/18 07/06/18 Previous Rx's Medication Instructions Recorded amlodipine [Norvasc] 10 mg PO DAILY tab 06/21/18 carvedilol [Coreg] 12.5 mg PO BID tab 06/21/18 hydralazine 75 mg PO Q8HR tab 06/21/18 lisinopril 40 mg PO DAILY tab 06/21/18 trazodone 25 mg PO HS #30 tab 06/21/18 acetaminophen 500 mg PO Q6H PRN tab 06/28/18 Allergies Allergy/AdvReac Type Severity Reaction Status Date / Time No Known Allergies Allergy Unverified 06/01/18 12:08 Review of Systems ROS: all other systems reviewed are negative [facility] Family History Family History Other Adopted Social History Social History Substance History: Unable to Obtain Second Hand Smoke Exposure: Yes Smoking Status: Current every day smoker Tobacco Type: Cigarettes How Often Do You Have a Drink Containing Alcohol: Monthly or less Recent [facility] within the Last 8 Weeks: No Recent Out of Country Travel within the Last 8 Weeks: No Immunization History Tetanus Immunization: Unsure Exam Narrative Exam Narrative: GENERAL: Well-developed well-nourished female no acute distress SKIN: Warm and dry. Left posterior scalp region surgical wound edges appear clean and there is no evidence of wound dehiscence or erythema. HEAD: Skin as noted above. Normocephalic. EYES: Pupils equal and round. No scleral icterus. No injection or drainage. ENT: No nasal bleeding or discharge. Mucous membranes pink and moist. NECK: Trachea midline. No JVD. CARDIOVASCULAR: Regular rate and rhythm. No murmur appreciated. RESPIRATORY: No accessory muscle use. Clear to auscultation. Breath sounds equal bilaterally. GASTROINTESTINAL: Abdomen soft, non-tender, nondistended. Hepatic and splenic margins not palpable. MUSCULOSKELETAL: No obvious deformities. No clubbing. No cyanosis. No edema. NEUROLOGICAL: Awake and alert. No obvious cranial nerve deficits. Motor grossly within normal limits. Normal speech. PSYCHIATRIC: Appropriate mood and affect; insight and judgment normal. Course Initial Documented Vital Signs Temperature 97.4 F L 07/06/18 18:32 Pulse Rate 62 07/06/18 18:32 Respiratory Rate 16 07/06/18 18:32 Blood Pressure 84/52 L 07/06/18 18:32 Pulse Oximetry 100 07/06/18 18:32 Last Documented Vital Signs Temperature 97.4 F L 07/06/18 18:32 Pulse Rate 64 07/07/18 01:18 Respiratory Rate 16 07/07/18 01:18 Blood Pressure 129/76 07/07/18 01:18 Pulse Oximetry 98 07/07/18 01:18 Medical Decision Making [facility] Narrative Medical decision making narrative: Patient was placed on ECG monitoring pulse oximetry. A 12-lead EKG was obtained. Lab work, CT brain, urinalysis have been ordered. The patient was given IV fluids. Orthostatic vital signs were obtained. See nursing notes. Lab values are grossly within normal range except for renal insufficiency most likely associated with mild dehydration patient has received IV fluids CT brain noncontrast reveals no evidence of a bleed or acute process scalp repair appears to be healing nicely patient still complaining of weakness and in view of near syncopal episode will admit for observation for repeat lab values as well as ongoing fluid hydration Discussed with Dr. Huston for observation admission for near syncope identified to have mild bacteriuria Medical Screen Exam Complete: Yes Emergency Medical Condition: Yes Differential Diagnosis Differential Diagnosis: Dehydration, electrolyte abnormality, orthostatic hypotension, closed head injury, concussion, vertigo Lab Data Result diagrams: 07/06/18 21:35 07/06/18 21:35 Lab Results 07/06/18 07/06/18 07/07/18 Range/Units 21:35 21:35 01:15 WBC 9.7 (4.0-11.0) th/mm3 RBC 3.62 L (4.00-5.30) mil/mm3 Hgb 10.8 L (11.6-15.3) gm/dL Hct 31.0 L (35.0-46.0) % MCV 85.5 (80.0-100.0) fL MCH 29.7 (27.0-34.0) pg MCHC 34.7 (32.0-36.0) % RDW 15.7 (11.6-17.2) % Plt Count 192 (150-450) th/mm3 MPV 6.8 L (7.0-11.0) fL Neut % (Auto) 79.0 H (16.0-70.0) % Lymph % (Auto) 13.5 (9.0-44.0) % [place] % (Auto) 6.6 (0.0-8.0) % Eos % (Auto) 0.2 (0.0-4.0) % Baso % (Auto) 0.7 (0.0-2.0) % Neut # (Auto) 7.7 (1.8-7.7) th/mm3 Lymph # (Auto) 1.3 (1.0-4.8) th/mm3 [place] # (Auto) 0.6 (0.0-0.9) th/mm3 Eos # (Auto) 0.0 (0.0-0.4) th/mm3 Baso # (Auto) 0.1 (0.0-0.2) th/mm3 WBC Differential . Differential Comment Auto diff final Sodium 128 L (136-145) meq/L Potassium 3.7 (3.5-5.1) meq/L Chloride 94 L (98-107) meq/L Carbon Dioxide 22.5 (21.0-32.0) meq/L Anion Gap 12 (5-15) meq/L BUN 20 H (7-18) mg/dL Creatinine 1.27 H (0.50-1.00) mg/dL Estimated GFR 41 L (>89) mL/min Random Glucose 107 H (74-106) mg/dL Calcium 8.2 L (8.5-10.1) mg/dL Magnesium 1.9 (1.5-2.5) mg/dL Total Bilirubin 0.7 (0.2-1.0) mg/dL AST 457 H (15-37) U/L ALT 181 H (10-53) U/L Alkaline Phosphatase 113 (45-117) U/L Total Creatine Kinase 24 L (26-192) U/L Troponin I Less than 0.02 L (0.02-0.05) ng/mL Total Protein 6.4 (6.4-8.2) g/dL Albumin 2.5 L (3.4-5.0) g/dL Urine Color Yellow (Yellw/Straw) Urine Clarity Hazy H (Clear) Urine pH 5.0 (5.0-8.5) Ur Specific [place] 1.008 (1.002-1.035) Urine Protein Negative (Neg-Trace) mg/dL Urine Glucose (UA) Negative (Negative) mg/dL Urine Ketones Negative (Negative) mg/dL Urine Occult Blood Negative (Negative) Urine Nitrate Negative (Negative) Urine Bilirubin Negative (Negative) Urine Urobilinogen 2.0 H (Less than 2) mg/dL Ur Leukocyte Esterase Small H (Negative) Urine RBC Less than 1 (0-3) /hpf Urine WBC 7 H (0-5) /hpf Ur Squamous Epith Cells 2 (0-5) /hpf Urine Bacteria Rare H (None) /hpf Urine Mucus Few H (Occasional) /lpf Micro UA Comment Culture not ind Ur Microscopic Review Not Reportable Urine Culture Comments Culture not ind Imaging Data Radiologist's impression: Head CT 07/06/18 21:30 CONCLUSION: 1. No acute intracranial abnormality. 2. Chronic white matter changes. . Discharge Plan Discharge Disposition Patient Disposition: 30 Still Patient Discharge Condition Condition: Stable Discharge Details Diagnosis: Near syncope Physicians Team ED Provider: Nitza Garcia ED Midlevel Provider: Prieto Bianchi Primary Care Provider: Fahad Laguna Rxs /Orders / Referrals /Forms Prescriptions: No Action levothyroxine [Synthroid] 50 mcg tablet 100 mcg PO DAILY@0600 RF: 0 carvedilol [Coreg] 12.5 mg Tablet 12.5 mg PO BID RF: 0 lisinopril 20 mg Tablet 40 mg PO DAILY RF: 0 hydralazine 25 mg Tablet 75 mg PO Q8HR RF: 0 amlodipine [Norvasc] 10 mg Tablet 10 mg PO DAILY RF: 0 trazodone 50 mg Tablet 25 mg PO HS Qty: 30 RF: 0 acetaminophen 500 mg Tablet 500 mg PO Q6H PRN (Reason: Pain Scale 1 To 10) RF: 0 Status ED Status: With Doctor
[2018-07-06 21:44] LABS: Baso # (Auto) 0.1 th/mm3 (0.0-0.2); Baso % (Auto) 0.7 % (0.0-2.0); Eos % (Auto) 0.2 % (0.0-4.0); Hemoglobin 10.8 gm/dL (11.6-15.3); Lymph # (Auto) 1.3 th/mm3 (1.0-4.8); Lymph % (Auto) 13.5 % (9.0-44.0); Mean Corpuscular HGB Conc 34.7 % (32.0-36.0); Mean Corpuscular Hemoglobin 29.7 pg (27.0-34.0); Mean Corpuscular Volume 85.5 fL (80.0-100.0); Mean Platelet Volume 6.8 fL (7.0-11.0); Mono # (Auto) 0.6 th/mm3 (0.0-0.9); Mono % (Auto) 6.6 % (0.0-8.0); Neut # (Auto) 7.7 th/mm3 (1.8-7.7); Platelet Count 192 th/mm3 (150-450); Red Blood Count 3.62 mil/mm3 (4.00-5.30); Red Cell Distribution Width 15.7 % (11.6-17.2); White Blood Count 9.7 th/mm3 (4.0-11.0)
--- NOTE | 2018-07-06 22:01 | CT ---
EXAM DATE: 07/06/2018 9:47 PM EDT AGE/SEX: 73 years / Female INDICATIONS: Cephalgia post discharge from rehab today. CLINICAL DATA: This is the patient's initial encounter. Patient reports that signs and symptoms have been present for 1 day and indicates a pain score of 5/10. MEDICAL/SURGICAL HISTORY: Cardiovascular disease. TBI CABG. Pacemaker. Craniotomy. RADIATION DOSE: 56.35 CTDI (mGy) COMPARISON: 06/11/2018. TECHNIQUE: CT of the head without contrast. Using automated exposure control and adjustment of the mA and/or kV according to patient size, radiation dose was kept as low as reasonably achievable to ob tain optimal diagnostic quality images. DICOM format image data is available electronically for revi ew and comparison. FINDINGS: Cerebrum: The ventricles are normal for age. No evidence of midline shift, mass lesion, hemorrhage or acute infarction. No extraaxial fluid collections are seen. Chronic low-attenuation again seen in the periventricular white matter. Posterior Fossa: The cerebellum and brainstem are intact. The 4th ventricle is midline. The cerebe llopontine angle is unremarkable. Extracranial: The visualized portion of the orbits is intact. Skull: The calvaria is intact. No evidence of skull fracture. CONCLUSION: 1. No acute intracranial abnormality. 2. Chronic white matter changes. . Electronically signed by: Fahad Bello MD 07/06/2018 10:00 PM EDT
[2018-07-06 22:10] LABS: Alanine Aminotransferase 181 U/L (10-53); Albumin 2.5 g/dL (3.4-5.0); Anion Gap 12 meq/L (5-15); Aspartate Aminotransferase 457 U/L (15-37); Blood Urea Nitrogen 20 mg/dL (7-18); Calcium 8.2 mg/dL (8.5-10.1); Carbon Dioxide 22.5 meq/L (21.0-32.0); Chloride 94 meq/L (98-107); Glucose,Random 107 mg/dL (74-106); Magnesium 1.9 mg/dL (1.5-2.5); Potassium 3.7 meq/L (3.5-5.1); Sodium 128 meq/L (136-145)
[2018-07-06 22:12] LABS: Alkaline Phosphatase 113 U/L (45-117); Glomerular Filtration Rate 41 mL/min (>89); Total Protein 6.4 g/dL (6.4-8.2)
[2018-07-06 22:27] LABS: Creatine Kinase 24 U/L (26-192)
[2018-07-07 01:28] LABS: Bacteria,Urine Rare /hpf; Bilirubin,Urine Negative (Negative); Clarity,Urine Hazy (Clear); Color,Urine Yellow (Yellw/Straw); Glucose,Urine (UA) Negative (Negative); Leukocyte Esterase,Urine Small (Negative); Mucus,Urine Few /lpf (Occasional); Nitrite,Urine Negative (Negative); Specific Gravity,Urine 1.008 (1.002-1.035); Squamous Epithelial Cell,Urine 2 /hpf (0-5)
[2018-07-07] MEDS ORDERED: Acetaminophen 325 MG Tablet PO PRN (02:32)
[2018-07-07] MEDS ORDERED: Bisacodyl 10 MG Supp RECTAL PRN (02:32)
[2018-07-07] MEDS: Sod Chloride 0.9% Inj 1,000 ML IV.CONT SCH ×3 (02:59→22:30)
--- NOTE | 2018-07-07 03:06 | P.HPIM ---
History of Present Illness Primary Care Physician: Fahad Laguna History of Present Illness: This is a 73-year-old female with a PMH of HTN, CAD, Dementia, Pacemaker, h/o Traumatic ICH and Left Scalp Hematoma who was brought to the ER by Daughter for near syncopal event. Pt w/ previous admit 06/01-06/02/18 for fall w/ small hemorrhagic contusion left parietal lobe and large left scalp hematoma on CT Head, had pacer interrogated at that time w/ no events noted, s/p eval by Neurosurgery and discharged home. Re-admitted 06/11-06/29/18 for bleeding from scalp hematoma, s/p scalp rotation flap by Plastic Surgery 06/14/18, +anemia w/ Hgb 6.8 requiring transfusion, also noted to have episodes of confusion and behavioral disturbances, s/p eval by neurobehavioral medicine w/ recommendations for rehab and outpatient psych referral. Discharged from Rehab today, daughter was helping her get out of the car when pt c/o lightheadedness, had near syncopal event. Pt w/ little recollection of events. Does note decreased PO intake the last several days. On arrival, BP 84/52, HR 62, O2 sat 100% on RA, Afebrile. CBC essentially unremarkable. Creatinine 1.27, previously 0.89 on 06/28/2018. Trop negative. U/a negative for UTI. CT Head w/ no acute findings. - Diagnosis (1) Near syncope (2) CHRISTI (acute kidney injury) (3) H/O intracranial hemorrhage Review of Systems PAST FAMILY HISTORY: Reviewed. No h/o DM or CAD All other systems reviewed negative except as stated in HPI PMFSH - History History Provided By: Patient, Family Member - Medical History Medical History: Medical History (Last Reviewed 06/28/18 @ 09:24 by [facility]) Pacemaker - Surgical History Surgical History: Surgical History (Last Reviewed 06/28/18 @ 09:24 by [employer]) Hx of heart bypass surgery - Family History Family History: Family History (Last Updated 06/01/18 @ 16:52 by Easton Gonzales MD) Other Adopted - Tobacco History Second Hand Smoke Exposure: Yes Tobacco Use In Past 30 Days: Yes Smoking Status: Current every day smoker Tobacco Type: Cigarettes - Alcohol History How Often Do You Have a Drink Containing Alcohol: Monthly or less - Substance Use History Substance History: Unable to Obtain - Travel History Recent Travel in the [place] Within the Last 8 Weeks: No Recent Travel Out of the Country Within the Last 8 Weeks: No - Immunization History Tetanus Immunization: Unsure Medications and Allergies Active Medications: Active Medications Acetaminophen (Tylenol) 650 mg PO Q4H PRN PRN Reason: Temp > 100.4 Al Hydroxide/Mg Hydroxide (Milk Of Magnesia Liq) 30 ml PO Q12H PRN PRN Reason: Mild Constipation Bisacodyl (Dulcolax Supp) 10 mg RECTAL DAILY PRN PRN Reason: SEVERE CONSITIPATION Sodium Chloride (Ns Inj) 1,000 mls @ 0 mls/hr IV.SIG BOLUS RADHA Last Infusion: 07/07/18 00:40 Dose: Infused Sodium Chloride (Ns Inj) 1,000 mls @ 0 mls/hr IV.SIG BOLUS RADHA Last Infusion: 07/07/18 00:40 Dose: Infused Sodium Chloride (Ns Inj) 1,000 mls @ 100 mls/hr IV.CONT .Q10H RADHA Lactulose (Lactulose Liq) 30 ml PO DAILY PRN PRN Reason: SEVERE CONSITIPATION Ondansetron HCl (Zofran Inj) 4 mg IV.PUSH Q6H PRN PRN Reason: NAUSEA OR VOMITING Senna/Docusate Sodium (Kaylan-Colace) 1 tab PO BID RADHA Sennosides (Senokot) 17.2 mg PO Q12H PRN PRN Reason: Moderate Constipation Sodium Chloride (Ns Flush) 2 ml IV.FLUSH PRN PRN PRN Reason: FLUSH AFTER USING IV ACCESS Allergies Allergy/AdvReac Type Severity Reaction Status Date / Time No Known Allergies Allergy Unverified 06/01/18 12:08 Home Medications Medication Instructions Recorded Confirmed Type levothyroxine [Synthroid] 100 mcg PO DAILY@0600 07/06/18 07/06/18 History Exam Vital signs: Vital Signs 07/06/18 18:32 07/06/18 21:20 07/07/18 01:18 Temperature 97.4 F L Pulse Rate 62 64 64 Respiratory Rate 16 18 16 Blood Pressure 84/52 L 106/61 129/76 Pulse Oximetry 100 99 98 Intake & Output 07/06/18 07/06/18 07/07/18 06:59 18:59 06:59 Intake Total 1999 Balance 1999 Weight 56.699 kg Intake: IV 1999 NS Inj 1,000 ML @ Wide Open IV. 1999 SIG BOLUS RADHA Rx#:[id number] Narrative: PE: GENERAL: Pleasant elderly white female in no acute distress. SKIN: Focused skin assessment warm and dry. HEENT: PERRLA, EOMI. No scleral icterus or conjunctival pallor. No lid lag or facial droop. Left posterior scalp w/ surgical wounds intact, no surrounding erythema or drainage. CARDIOVASCULAR: Regular rate and rhythm. No obvious murmurs to auscultation. No chest tenderness to palpation. RESPIRATORY: No obvious rhonchi or wheezing. Clear to auscultation. Breath sounds equal bilaterally. GASTROINTESTINAL: Abdomen soft, non-tender, nondistended. BS normal. MUSCULOSKELETAL: Extremities without clubbing, cyanosis, or edema. No obvious deformities. NEUROLOGICAL: Awake, alert. No focal neurologic deficits. Moving both upper and lower extremities spontaneously. PSYCHIATRIC: Appropriate mood and affect. Insight and judgment normal. Results - Labs CBC & Chem 7: 07/06/18 21:35 07/06/18 21:35 Labs: Short CBC 07/06/18 Range/Units 21:35 WBC 9.7 (4.0-11.0) th/mm3 Hgb 10.8 L (11.6-15.3) gm/dL Hct 31.0 L (35.0-46.0) % Plt Count 192 (150-450) th/mm3 BMP 07/06/18 21:35 Sodium 128 L Potassium 3.7 Chloride 94 L Carbon Dioxide 22.5 BUN 20 H Creatinine 1.27 H Calcium 8.2 L Cardiac Enzymes 07/06/18 Range/Units 21:35 Total Creatine Kinase 24 L (26-192) U/L Troponin I Less than 0.02 L (0.02-0.05) ng/mL Liver Function 07/06/18 Range/Units 21:35 Total Bilirubin 0.7 (0.2-1.0) mg/dL AST 457 H (15-37) U/L ALT 181 H (10-53) U/L Alkaline Phosphatase 113 (45-117) U/L Albumin 2.5 L (3.4-5.0) g/dL Urine 07/07/18 Range/Units 01:15 Urine Color Yellow (Yellw/Straw) Urine Clarity Hazy H (Clear) Urine pH 5.0 (5.0-8.5) Ur Specific [place] 1.008 (1.002-1.035) Urine Protein Negative (Neg-Trace) mg/dL Urine Glucose (UA) Negative (Negative) mg/dL - Imaging Impressions Head CT 07/06/18 21:30 CONCLUSION: 1. No acute intracranial abnormality. 2. Chronic white matter changes. . Caprini VTE Risk Assessment Caprini VTE Risk Assessment: No/Low Risk (score <= 1) Caprini Risk Assessment Model: Point Value = 1 Point Value = 2 Point Value = 3 Point Value = 5 Age 41-60 Minor surgery BMI > 25 kg/m2 Swollen legs Varicose veins or History of unexplained or recurrent spontaneous Oral contraceptives or hormone replacement Sepsis (< 1 month) Serious lung disease, including pneumonia (< 1 month) Abnormal pulmonary function Acute myocardial infarction Congestive heart failure (< 1 month) History of inflammatory bowel disease Medical patient at bed rest Age 61-74 Arthroscopic surgery Major open surgery (> 45 min) Laparoscopic surgery (> 45 min) Malignancy Confined to bed (> 72 hours) Immobilizing plaster cast Central venous access Age >= 75 History of VTE Family history of VTE Factor V Leiden Prothrombin [id number] Lupus anticoagulant Anticardiolipin antibodies Elevated serum homocysteine Heparin-induced thrombocytopenia Other congenital or acquired thrombophilia Stroke (< 1 month) Elective arthroplasty Hip, pelvis, or leg fracture Acute spinal cord injury (< 1 month) Prophylaxis Regimen: Total Risk Factor Score Risk Level Prophylaxis Regimen 0-1 Low Early ambulation 2 Moderate Order ONE of the following: *Sequential Compression Device (SCD) *Heparin 5000 units SQ BID 3-4 Higher Order ONE of the following medications: *Heparin 5000 units SQ TID *Enoxaparin/Lovenox 40 mg SQ daily (WT < 150 kg, CrCl > 30 mL/min) *Enoxaparin/Lovenox 30 mg SQ daily (WT < 150 kg, CrCl > 10-29 mL/min) *Enoxaparin/Lovenox 30 mg SQ BID (WT < 150 kg, CrCl > 30 mL/min) AND/OR *Sequential Compression Device (SCD) 5 or more Highest Order ONE of the following medications: *Heparin 5000 units SQ TID (Preferred with Epidurals) *Enoxaparin/Lovenox 40 mg SQ daily (WT < 150 kg, CrCl > 30 mL/min) *Enoxaparin/Lovenox 30 mg SQ daily (WT < 150 kg, CrCl > 10-29 mL/min) *Enoxaparin/Lovenox 30 mg SQ BID (WT < 150 kg, CrCl > 30 mL/min) AND *Sequential Compression Device (SCD) Assessment and Plan - Assessment (1) Near syncope Code(s): R55 - Syncope and collapse Status: Acute (2) CHRISTI (acute kidney injury) Code(s): N17.9 - Acute kidney failure, unspecified Status: Acute (3) H/O intracranial hemorrhage Code(s): Z86.79 - Personal history of other diseases of the circulatory system Status: Acute - Plan A/P: 1. Near Syncope: likely secondary to dehydration/hypotension, now improved after IVF. No LOC or head trauma, CT Head w/ no acute findings, images reviewed. PT for eval/tx. 2. CHRISTI: Creatinine 1.27, previously 0.89 on 06/28/18, IVF for hydration, repeat labs in am, monitor I/O 3. h/o ICH: previous admit w/ fall, small ICH and large scalp hematoma, re- admitted for bleeding from scalp hematoma, s/p scalp rotation flap by Plastic Surgery 06/14/18, healing well. 4. DVT Prophylaxis: SCD/Teds 5. Social work for d/c planning as needed 6. Case discussed w/ ER physician at length, labs/records/imaging reviewed by me
[2018-07-07] MEDS: Senna/Docusate Sodium 8.6/50 MG Tablet PO SCH ×2 (08:26→20:39)
[2018-07-07 10:02] LABS: Calcium 7.5 mg/dL (8.5-10.1); Potassium 3.6 meq/L (3.5-5.1)
[2018-07-07 10:28] LABS: Hepatitits B Surface Antigen Nonreactive (Nonreactive)
[2018-07-07 10:56] LABS: Hepatitis A IgM Antibody Nonreactive (Nonreactive)
--- NOTE | 2018-07-07 16:59 | P.PN ---
Subjective Interval history: Patient is seen sitting up in bed. She denies any chest pain or shortness of breath. No further episodes of syncope. No dizziness, headache or changes in vision. Denies any abdominal pain or changes in stool. Reports that she has a history of hep C that was treated. She would like to know when she can get the stitches out of her head because they are itchy. Physical Exam Vital signs: Vital Signs 07/06/18 18:32 07/06/18 21:20 07/07/18 01:18 Temperature 97.4 F L Pulse Rate 62 64 64 Respiratory Rate 16 18 16 Blood Pressure 84/52 L 106/61 129/76 Pulse Oximetry 100 99 98 07/07/18 05:16 07/07/18 08:00 07/07/18 08:30 Temperature 97.7 F 98.2 F Pulse Rate 60 78 Respiratory Rate 18 18 Blood Pressure 122/59 L 128/60 Pulse Oximetry 98 96 96 07/07/18 13:01 07/07/18 15:58 Temperature 98.2 F 98.3 F Pulse Rate 62 61 Respiratory Rate 18 18 Blood Pressure 120/62 132/62 Pulse Oximetry 96 96 Intake & Output 07/06/18 07/07/18 07/07/18 18:59 06:59 18:59 Intake Total 1999 1000 / 1000 Balance 1999 1000 / 1000 Weight 56.699 kg 56.699 kg Intake: IV 1999 / 1000 NS Inj 1,000 ML @ 100 mls/hr IV 1000 / 1000 .CONT .Q10H RADHA Rx#:[id number] NS Inj 1,000 ML @ Wide Open IV. 1999 SIG BOLUS RADHA Rx#:[id number] Other: Weight On Admission 56.699 kg Narrative: GENERAL: Well-nourished, well-developed adult female in no obvious distress. SKIN: Warm and dry. Postsurgical wound on scalp. Generally well healed but with some crusting obscuring areas; sutures in place. Per record sutures were placed 06/14. HEAD: Atraumatic. Normocephalic. CARDIOVASCULAR: Regular rate and rhythm. RESPIRATORY: No accessory muscle use. Clear to auscultation. Breath sounds equal bilaterally. GASTROINTESTINAL: Abdomen soft, non-tender, non-distended. Positive bowel sounds. MUSCULOSKELETAL: Extremities without clubbing, cyanosis, or edema. No obvious deformities. NEUROLOGICAL: Awake and alert. No obvious cranial nerve deficits. Motor grossly within normal limits. Normal speech. PSYCHIATRIC: A&O3; but questionable if she has adequate insight and judgment to care for herself. Results - Labs CBC & Chem 7: 07/06/18 21:35 07/07/18 09:30 Laboratory Results - last 24 hr 07/06/18 07/06/18 07/07/18 21:35 21:35 01:15 WBC 9.7 RBC 3.62 L Hgb 10.8 L Hct 31.0 L MCV 85.5 MCH 29.7 MCHC 34.7 RDW 15.7 Plt Count 192 MPV 6.8 L Neut % (Auto) 79.0 H Lymph % (Auto) 13.5 [place] % (Auto) 6.6 Eos % (Auto) 0.2 Baso % (Auto) 0.7 Neut # (Auto) 7.7 Lymph # (Auto) 1.3 [place] # (Auto) 0.6 Eos # (Auto) 0.0 Baso # (Auto) 0.1 WBC Differential . Differential Comment Auto diff final Sodium 128 L Potassium 3.7 Chloride 94 L Carbon Dioxide 22.5 Anion Gap 12 BUN 20 H Creatinine 1.27 H Estimated GFR 41 L Random Glucose 107 H Calcium 8.2 L Magnesium 1.9 Total Bilirubin 0.7 AST 457 H ALT 181 H Alkaline Phosphatase 113 Total Creatine Kinase 24 L Troponin I Less than 0.02 L Total Protein 6.4 Albumin 2.5 L Urine Color Yellow Urine Clarity Hazy H Urine pH 5.0 Ur Specific [place] 1.008 Urine Protein Negative Urine Glucose (UA) Negative Urine Ketones Negative Urine Occult Blood Negative Urine Nitrate Negative Urine Bilirubin Negative Urine Urobilinogen 2.0 H Ur Leukocyte Esterase Small H Urine RBC Less than 1 Urine WBC 7 H Ur Squamous Epith Cells 2 Urine Bacteria Rare H Urine Mucus Few H Micro UA Comment Culture not ind Ur Microscopic Review Not Reportable Urine Culture Comments Culture not ind Serum Alcohol Hepatitis A IgM Ab Hep Bs Antigen Hep B Core IgM Ab Hep C IgG Ab 07/07/18 07/07/18 07/07/18 09:30 09:30 09:30 WBC RBC Hgb Hct MCV MCH MCHC RDW Plt Count MPV Neut % (Auto) Lymph % (Auto) [place] % (Auto) Eos % (Auto) Baso % (Auto) Neut # (Auto) Lymph # (Auto) [place] # (Auto) Eos # (Auto) Baso # (Auto) WBC Differential Differential Comment Sodium 131 L Potassium 3.6 Chloride 100 Carbon Dioxide 22.0 Anion Gap 9 BUN 15 Creatinine 1.06 H Estimated GFR 51 L Random Glucose 96 Calcium 7.5 L Magnesium Total Bilirubin AST ALT Alkaline Phosphatase Total Creatine Kinase Troponin I Total Protein Albumin Urine Color Urine Clarity Urine pH Ur Specific [place] Urine Protein Urine Glucose (UA) Urine Ketones Urine Occult Blood Urine Nitrate Urine Bilirubin Urine Urobilinogen Ur Leukocyte Esterase Urine RBC Urine WBC Ur Squamous Epith Cells Urine Bacteria Urine Mucus Micro UA Comment Ur Microscopic Review Urine Culture Comments Serum Alcohol Less than 3 Hepatitis A IgM Ab Nonreactive Hep Bs Antigen Nonreactive Hep B Core IgM Ab Nonreactive Hep C IgG Ab Reactive H - Imaging Impressions Head CT 07/06/18 21:30 CONCLUSION: 1. No acute intracranial abnormality. 2. Chronic white matter changes. . Assessment and Plan - Assessment (1) Near syncope Code(s): R55 - Syncope and collapse Status: Acute (2) CHRISTI (acute kidney injury) Code(s): N17.9 - Acute kidney failure, unspecified Status: Acute (3) H/O intracranial hemorrhage Code(s): Z86.79 - Personal history of other diseases of the circulatory system Status: Acute - Plan This is a 73-year-old female with a PMH of HTN, CAD, Dementia, Pacemaker, h/o Traumatic ICH and Left Scalp Hematoma who was brought to the ER by Daughter for near syncopal event. Dehydration/hypotension; acute; -Near Syncope likely secondary to dehydration/hypotension, now improved after IVF. -No LOC or head trauma, CT Head w/ no acute findings. -PT for eval/tx. CHRISTI: -Improving with IVF. Monitor labs -Avoid nephrotoxins h/o ICH: -previous admit w/ fall, small ICH and large scalp hematoma, re-admitted for bleeding from scalp hematoma, s/p scalp rotation flap by Plastic Surgery 06/14/18 , healing well. Elevated liver enzymes -History of hep C; treated. RNA PCR negative -Chronic elevation now significantly worse. Repeat labs to evaluate trend. -Liver ultrasound done 06/18 indicated chronic cholecystitis with non-shadowing stone versus debris is in the gallbladder. Liver was normal. -Negative for EtOH at admit. DVT Prophylaxis: SCD/Teds Discussed with: Patient, nurse. Patient seen with Dr. Miller
[2018-07-07] MEDS: traZODone 50 MG Tablet PO SCH (20:37)
[2018-07-07] MEDS: Carvedilol 12.5 MG Tablet PO SCH (20:38)
[2018-07-07] MEDS: hydrALAZINE 25 MG Tablet PO SCH (21:36)
--- NOTE | 2018-07-07 22:08 | ECG ---
Date Performed: 07/06/2018 Time Performed: 21:37:52 PTAGE: 73 years EKG: Sinus rhythm MARKED RIGHT AXIS DEVIATION RIGHT BUNDLE BRANCH BLOCK ABNORMAL ECG PREVIOUS TRACING : 06/01/2018 12.16 DOCTOR: Luis Vaz Interpretating Date/Time 07/07/2018 22:06:54
[2018-07-08] MEDS: Levothyroxine 100 MCG Tablet PO SCH (05:39)
[2018-07-08] MEDS: hydrALAZINE 25 MG Tablet PO SCH ×3 (05:39→23:04)
[2018-07-08 06:52] LABS: Baso % (Auto) 0.4 % (0.0-2.0); Eos % (Auto) 0.2 % (0.0-4.0); Hematocrit 26.6 % (35.0-46.0); Hemoglobin 9.2 gm/dL (11.6-15.3); Lymph # (Auto) 0.8 th/mm3 (1.0-4.8); Lymph % (Auto) 9.7 % (9.0-44.0); Mean Corpuscular HGB Conc 34.5 % (32.0-36.0); Mean Corpuscular Hemoglobin 30.2 pg (27.0-34.0); Mean Corpuscular Volume 87.7 fL (80.0-100.0); Mean Platelet Volume 6.4 fL (7.0-11.0); Mono # (Auto) 0.5 th/mm3 (0.0-0.9); Mono % (Auto) 5.5 % (0.0-8.0); Neut # (Auto) 7.3 th/mm3 (1.8-7.7); Neut % (Auto) 84.2 % (16.0-70.0); Platelet Count 137 th/mm3 (150-450); Red Blood Count 3.04 mil/mm3 (4.00-5.30); Red Cell Distribution Width 16.2 % (11.6-17.2); White Blood Count 8.6 th/mm3 (4.0-11.0)
[2018-07-08 07:29] LABS: Albumin 2.1 g/dL (3.4-5.0); Calcium 7.4 mg/dL (8.5-10.1); Carbon Dioxide 17.7 meq/L (21.0-32.0); Potassium 3.4 meq/L (3.5-5.1); Total Protein 5.4 g/dL (6.4-8.2)
[2018-07-08] MEDS: Carvedilol 12.5 MG Tablet PO SCH ×2 (08:02→21:04)
[2018-07-08] MEDS: amLODIPine 10 MG Tablet PO SCH (08:02)
[2018-07-08] MEDS: Senna/Docusate Sodium 8.6/50 MG Tablet PO SCH ×2 (08:02→21:04)
[2018-07-08] MEDS: Lisinopril 20 MG Tablet PO SCH (08:03)
[2018-07-08] MEDS: Sod Chloride 0.9% Inj 1,000 ML IV.CONT SCH ×2 (11:06→17:54)
--- NOTE | 2018-07-08 15:36 | P.PN ---
Subjective Interval history: Patient is seen sitting up in bed. She is pleasant and answers questions however it is obvious that she is somewhat confused and a poor historian. Nursing denies any adverse events overnight. Physical Exam Vital signs: Vital Signs 07/07/18 15:58 07/08/18 04:00 07/08/18 11:01 Temperature 98.3 F 98.3 F Pulse Rate 61 65 Respiratory Rate 18 16 18 Blood Pressure 132/62 150/66 H Pulse Oximetry 96 07/08/18 12:11 Temperature 98.2 F Pulse Rate 68 Respiratory Rate 20 Blood Pressure 148/62 H Pulse Oximetry 98 Intake & Output 07/07/18 07/08/18 07/08/18 18:59 06:59 18:59 Intake Total 1000 / 1000 2100 / 2100 1000 / 1000 Balance 1000 / 1000 2100 / 2100 1000 / 1000 Intake: IV 1000 / 1000 1000 / 1000 1000 / 1000 NS Inj 1,000 ML @ 100 mls/hr IV 1000 / 1000 1000 / 1000 1000 / 1000 .CONT .Q10H RADHA Rx#:[id number] Other 1100 / 1100 Other: Other Intake Source Saline Solution # Voids 1 Narrative: GENERAL: Well-nourished, well-developed adult female in no obvious distress. SKIN: Warm and dry. Postsurgical wound on scalp. Generally well healed but with some crusting obscuring areas; sutures in place. Per record sutures were placed 06/14. HEAD: Atraumatic. Normocephalic. CARDIOVASCULAR: Regular rate and rhythm. RESPIRATORY: No accessory muscle use. Clear to auscultation. Breath sounds equal bilaterally. GASTROINTESTINAL: Abdomen soft, non-tender, non-distended. Positive bowel sounds. MUSCULOSKELETAL: Extremities without clubbing, cyanosis, or edema. No obvious deformities. NEUROLOGICAL: Awake and alert. No obvious cranial nerve deficits. Motor grossly within normal limits. Normal speech. PSYCHIATRIC: A&O3; but questionable if she has adequate insight and judgment to care for herself. Results - Labs CBC & Chem 7: 07/08/18 06:03 07/08/18 06:03 Laboratory Results - last 24 hr 07/08/18 07/08/18 06:03 06:03 WBC 8.6 RBC 3.04 L Hgb 9.2 L Hct 26.6 L MCV 87.7 MCH 30.2 MCHC 34.5 RDW 16.2 Plt Count 137 L MPV 6.4 L Neut % (Auto) 84.2 H Lymph % (Auto) 9.7 [place] % (Auto) 5.5 Eos % (Auto) 0.2 Baso % (Auto) 0.4 Neut # (Auto) 7.3 Lymph # (Auto) 0.8 L [place] # (Auto) 0.5 Eos # (Auto) 0.0 Baso # (Auto) 0.0 WBC Differential . Differential Comment Auto diff final Sodium 134 L Potassium 3.4 L Chloride 104 Carbon Dioxide 17.7 L Anion Gap 12 BUN 10 Creatinine 0.87 Estimated GFR 64 L Random Glucose 87 Calcium 7.4 L* Prot Corrected Calcium 8.3 L Total Bilirubin 0.7 AST 251 H ALT 118 H Alkaline Phosphatase 94 Total Protein 5.4 L D Albumin 2.1 L Assessment and Plan - Assessment (1) Near syncope Code(s): R55 - Syncope and collapse Status: Acute (2) CHRISTI (acute kidney injury) Code(s): N17.9 - Acute kidney failure, unspecified Status: Acute (3) H/O intracranial hemorrhage Code(s): Z86.79 - Personal history of other diseases of the circulatory system Status: Acute - Plan This is a 73-year-old female with a PMH of HTN, CAD, Dementia, Pacemaker, h/o Traumatic ICH and Left Scalp Hematoma who was brought to the ER by Daughter for near syncopal event. Dehydration/hypotension; acute; -Near Syncope likely secondary to dehydration/hypotension, now improved after IVF. -No LOC or head trauma, CT Head w/ no acute findings. -PT for eval/tx. CHRISTI: -Improving with IVF. Monitor labs -Avoid nephrotoxins h/o ICH: -previous admit w/ fall, small ICH and large scalp hematoma, re-admitted for bleeding from scalp hematoma, s/p scalp rotation flap by Plastic Surgery 06/14/18 , healing well. -Order placed for suture removal Elevated liver enzymes -History of hep C; treated. RNA PCR negative -Chronic elevation now significantly worse. Repeat labs to evaluate trend - improving; continue to monitor.. -Liver ultrasound done 06/18 indicated chronic cholecystitis with non-shadowing stone versus debris is in the gallbladder. Liver was normal. -Negative for EtOH at admit. DVT Prophylaxis: SCD/Teds Discussed with: Patient, nurse. Patient seen with Dr. Miller
[2018-07-08] MEDS: traZODone 50 MG Tablet PO SCH (21:03)
[2018-07-09] MEDS: Levothyroxine 100 MCG Tablet PO SCH (05:20)
[2018-07-09] MEDS: hydrALAZINE 25 MG Tablet PO SCH ×3 (05:20→21:27)
[2018-07-09] MEDS: Sod Chloride 0.9% Inj 1,000 ML IV.CONT SCH ×2 (05:58→14:42)
[2018-07-09] MEDS: amLODIPine 10 MG Tablet PO SCH (09:53)
[2018-07-09] MEDS: Lisinopril 20 MG Tablet PO SCH (09:53)
[2018-07-09] MEDS: Carvedilol 12.5 MG Tablet PO SCH ×2 (09:53→20:51)
[2018-07-09] MEDS: Senna/Docusate Sodium 8.6/50 MG Tablet PO SCH ×2 (09:54→20:51)
--- NOTE | 2018-07-09 12:51 | P.PNIM ---
Subjective Interval history: This is a 73-year-old female with a PMH of HTN, CAD, Dementia, Pacemaker, h/o Traumatic ICH and Left Scalp Hematoma who was brought to the ER by Daughter for near syncopal event. Pt w/ previous admit 06/01-06/02/18 for fall w/ small hemorrhagic contusion left parietal lobe and large left scalp hematoma on CT Head, had pacer interrogated at that time w/ no events noted, s/p eval by Neurosurgery and discharged home. Re-admitted 06/11-06/29/18 for bleeding from scalp hematoma, s/p scalp rotation flap by Plastic Surgery 06/14/18, +anemia w/ Hgb 6.8 requiring transfusion, also noted to have episodes of confusion and behavioral disturbances, s/p eval by neurobehavioral medicine w/ recommendations for rehab and outpatient psych referral. Discharged from Rehab today, daughter was helping her get out of the car when pt c/o lightheadedness, had near syncopal event. Pt w/ little recollection of events. Does note decreased PO intake the last several days. On arrival, BP 84/52, HR 62, O2 sat 100% on RA, Afebrile. CBC essentially unremarkable. Creatinine 1.27, previously 0.89 on 06/28/2018. Trop negative. U/a negative for UTI. CT Head w/ no acute findings. 9-15 Patient is seen sitting up in bed. She denies any chest pain or shortness of breath. No further episodes of syncope. No dizziness, headache or changes in vision. Denies any abdominal pain or changes in stool. Reports that she has a history of hep C that was treated. She would like to know when she can get the stitches out of her head because they are itchy. 9-16 Patient is seen sitting up in bed. She is pleasant and answers questions however it is obvious that she is somewhat confused and a poor historian. Nursing denies any adverse events overnight. 9-17 PROBABLY NEEDS TO GO TO SNF WILL ASK CASE MANAGEMENT FOR PLACEMENT MEDS ADJUSTED AM LABS IF STILL HERE Physical Exam Vital signs: Vital Signs 07/08/18 16:00 07/08/18 20:00 07/09/18 00:00 Temperature 98.1 F 98.4 F 98.2 F Pulse Rate 60 60 60 Respiratory Rate 18 16 18 Blood Pressure 116/59 L 125/61 113/57 L Pulse Oximetry 97 95 96 07/09/18 04:00 07/09/18 08:00 07/09/18 09:52 Temperature 98.5 F 98.0 F Pulse Rate 62 56 L 60 Respiratory Rate 16 17 Blood Pressure 115/56 L 133/61 Pulse Oximetry 95 96 Intake & Output 07/08/18 07/09/18 07/09/18 18:59 06:59 18:59 Intake Total 1000 / 1000 1240 / 1240 Balance 1000 / 1000 1240 / 1240 Weight 61.1 kg Intake: IV 1000 / 1000 1000 / 1000 NS Inj 1,000 ML @ 100 mls/hr IV 1000 / 1000 1000 / 1000 .CONT .Q10H RADHA Rx#:[id number] Oral 240 / 240 Other: # Voids 1 Date of Last Bowel Movement 07/07/18 Narrative: GENERAL: Well-nourished, well-developed adult female in no obvious distress. SKIN: Warm and dry. Postsurgical wound on scalp. Generally well healed but with some crusting obscuring areas; sutures in place. Per record sutures were placed 06/14. HEAD: Atraumatic. Normocephalic. CARDIOVASCULAR: Regular rate and rhythm. RESPIRATORY: No accessory muscle use. Clear to auscultation. Breath sounds equal bilaterally. GASTROINTESTINAL: Abdomen soft, non-tender, non-distended. Positive bowel sounds. MUSCULOSKELETAL: Extremities without clubbing, cyanosis, or edema. No obvious deformities. NEUROLOGICAL: Awake and alert. No obvious cranial nerve deficits. Motor grossly within normal limits. Normal speech. PSYCHIATRIC: A&O3; but questionable if she has adequate insight and judgment to care for herself. Results - Labs CBC & Chem 7: 07/08/18 06:03 07/08/18 06:03 - Imaging Head CT 07/06/18 21:30 CONCLUSION: 1. No acute intracranial abnormality. 2. Chronic white matter changes. . - Procedures NONE Assessment and Plan - Assessment (1) Near syncope Code(s): R55 - Syncope and collapse Status: Acute (2) CHRISTI (acute kidney injury) Code(s): N17.9 - Acute kidney failure, unspecified Status: Acute (3) H/O intracranial hemorrhage Code(s): Z86.79 - Personal history of other diseases of the circulatory system Status: Acute - Plan This is a 73-year-old female with a PMH of HTN, CAD, Dementia, Pacemaker, h/o Traumatic ICH and Left Scalp Hematoma who was brought to the ER by Daughter for near syncopal event. Dehydration/hypotension; acute; -Near Syncope likely secondary to dehydration/hypotension, now improved after IVF. -No LOC or head trauma, CT Head w/ no acute findings. -PT for eval/tx. CHRISTI: -Improving with IVF. Monitor labs -Avoid nephrotoxins h/o ICH: -previous admit w/ fall, small ICH and large scalp hematoma, re-admitted for bleeding from scalp hematoma, s/p scalp rotation flap by Plastic Surgery 06/14/18 , healing well. -Order placed for suture removal Elevated liver enzymes -History of hep C; treated. RNA PCR negative -Chronic elevation now significantly worse. Repeat labs to evaluate trend - improving; continue to monitor.. -Liver ultrasound done 06/18 indicated chronic cholecystitis with non-shadowing stone versus debris is in the gallbladder. Liver was normal. -Negative for EtOH at admit. DVT Prophylaxis: SCD/Teds Code Status: FULL CODE Discussed Condition With: DAVONTE RN AND PT AND CM Discharge Planning: SNF PROBABLY FOR SAFETY IF AVAILABLE
--- NOTE | 2018-07-09 12:58 | P.DS ---
Date of admission: 07/07/18 12:48 Primary care physician: Fahad Laguna Attending physician on discharge: Coleman Braga Anticipated date of discharge: 07/09/18 Brief History from admission: This is a 73-year-old female with a PMH of HTN, CAD, Dementia, Pacemaker, h/o Traumatic ICH and Left Scalp Hematoma who was brought to the ER by Daughter for near syncopal event. Pt w/ previous admit 06/01-06/02/18 for fall w/ small hemorrhagic contusion left parietal lobe and large left scalp hematoma on CT Head, had pacer interrogated at that time w/ no events noted, s/p eval by Neurosurgery and discharged home. Re-admitted 06/11-06/29/18 for bleeding from scalp hematoma, s/p scalp rotation flap by Plastic Surgery 06/14/18, +anemia w/ Hgb 6.8 requiring transfusion, also noted to have episodes of confusion and behavioral disturbances, s/p eval by neurobehavioral medicine w/ recommendations for rehab and outpatient psych referral. Discharged from Rehab today, daughter was helping her get out of the car when pt c/o lightheadedness, had near syncopal event. Pt w/ little recollection of events. Does note decreased PO intake the last several days. On arrival, BP 84/52, HR 62, O2 sat 100% on RA, Afebrile. CBC essentially unremarkable. Creatinine 1.27, previously 0.89 on 06/28/2018. Trop negative. U/a negative for UTI. CT Head w/ no acute findings. Patient update on day of discharge: This is a 73-year-old female with a PMH of HTN, CAD, Dementia, Pacemaker, h/o Traumatic ICH and Left Scalp Hematoma who was brought to the ER by Daughter for near syncopal event. Pt w/ previous admit 06/01-06/02/18 for fall w/ small hemorrhagic contusion left parietal lobe and large left scalp hematoma on CT Head, had pacer interrogated at that time w/ no events noted, s/p eval by Neurosurgery and discharged home. Re-admitted 06/11-06/29/18 for bleeding from scalp hematoma, s/p scalp rotation flap by Plastic Surgery 06/14/18, +anemia w/ Hgb 6.8 requiring transfusion, also noted to have episodes of confusion and behavioral disturbances, s/p eval by neurobehavioral medicine w/ recommendations for rehab and outpatient psych referral. Discharged from Rehab today, daughter was helping her get out of the car when pt c/o lightheadedness, had near syncopal event. Pt w/ little recollection of events. Does note decreased PO intake the last several days. On arrival, BP 84/52, HR 62, O2 sat 100% on RA, Afebrile. CBC essentially unremarkable. Creatinine 1.27, previously 0.89 on 06/28/2018. Trop negative. U/a negative for UTI. CT Head w/ no acute findings. 9-15 Patient is seen sitting up in bed. She denies any chest pain or shortness of breath. No further episodes of syncope. No dizziness, headache or changes in vision. Denies any abdominal pain or changes in stool. Reports that she has a history of hep C that was treated. She would like to know when she can get the stitches out of her head because they are itchy. 9-16 Patient is seen sitting up in bed. She is pleasant and answers questions however it is obvious that she is somewhat confused and a poor historian. Nursing denies any adverse events overnight. 9-17 PROBABLY NEEDS TO GO TO SNF WILL ASK CASE MANAGEMENT FOR PLACEMENT MEDS ADJUSTED AM LABS IF STILL HERE DS: Diagnosis - Discharge Diagnosis (1) Near syncope Status: Acute (2) CHRISTI (acute kidney injury) Status: Acute (3) H/O intracranial hemorrhage Status: Acute DS: Medications - Discharge Medications Prescriptions: amlodipine [Norvasc] 10 mg PO DAILY #31 tab carvedilol [Coreg] 12.5 mg PO BID #62 tab hydralazine 75 mg PO Q8HR #360 tab levothyroxine [Synthroid] 100 mcg PO DAILY@0600 #60 tab lisinopril 40 mg PO DAILY #62 tab trazodone 25 mg PO HS #30 tab DS: Summary Hospital Course: This is a 73-year-old female with a PMH of HTN, CAD, Dementia, Pacemaker, h/o Traumatic ICH and Left Scalp Hematoma who was brought to the ER by Daughter for near syncopal event. Pt w/ previous admit 06/01-06/02/18 for fall w/ small hemorrhagic contusion left parietal lobe and large left scalp hematoma on CT Head, had pacer interrogated at that time w/ no events noted, s/p eval by Neurosurgery and discharged home. Re-admitted 06/11-06/29/18 for bleeding from scalp hematoma, s/p scalp rotation flap by Plastic Surgery 06/14/18, +anemia w/ Hgb 6.8 requiring transfusion, also noted to have episodes of confusion and behavioral disturbances, s/p eval by neurobehavioral medicine w/ recommendations for rehab and outpatient psych referral. Discharged from Rehab today, daughter was helping her get out of the car when pt c/o lightheadedness, had near syncopal event. Pt w/ little recollection of events. Does note decreased PO intake the last several days. On arrival, BP 84/52, HR 62, O2 sat 100% on RA, Afebrile. CBC essentially unremarkable. Creatinine 1.27, previously 0.89 on 06/28/2018. Trop negative. U/a negative for UTI. CT Head w/ no acute findings. 9-15 Patient is seen sitting up in bed. She denies any chest pain or shortness of breath. No further episodes of syncope. No dizziness, headache or changes in vision. Denies any abdominal pain or changes in stool. Reports that she has a history of hep C that was treated. She would like to know when she can get the stitches out of her head because they are itchy. 9-16 Patient is seen sitting up in bed. She is pleasant and answers questions however it is obvious that she is somewhat confused and a poor historian. Nursing denies any adverse events overnight. 9-17 PROBABLY NEEDS TO GO TO SNF WILL ASK CASE MANAGEMENT FOR PLACEMENT MEDS ADJUSTED AM LABS IF STILL HERE - Time Spent with Patient Total time spent providing and/or coordinating discharge services: Greater than 30 minutes - Quality: VTE Deep Vein Thrombosis/Pulmonary Embolism Present on Admission: No Exam Vital signs: Vital Signs 07/08/18 16:00 07/08/18 20:00 07/09/18 00:00 Temperature 98.1 F 98.4 F 98.2 F Pulse Rate 60 60 60 Respiratory Rate 18 16 18 Blood Pressure 116/59 L 125/61 113/57 L Pulse Oximetry 97 95 96 07/09/18 04:00 07/09/18 08:00 07/09/18 09:52 Temperature 98.5 F 98.0 F Pulse Rate 62 56 L 60 Respiratory Rate 16 17 Blood Pressure 115/56 L 133/61 Pulse Oximetry 95 96 Intake & Output 07/08/18 07/09/18 07/09/18 18:59 06:59 18:59 Intake Total 1000 / 1000 1240 / 1240 Balance 1000 / 1000 1240 / 1240 Weight 61.1 kg Intake: IV 1000 / 1000 1000 / 1000 NS Inj 1,000 ML @ 100 mls/hr IV 1000 / 1000 1000 / 1000 .CONT .Q10H RADHA Rx#:[id number] Oral 240 / 240 Other: # Voids 1 Date of Last Bowel Movement 07/07/18 Narrative: GENERAL: Well-nourished, well-developed adult female in no obvious distress. SKIN: Warm and dry. Postsurgical wound on scalp. Generally well healed but with some crusting obscuring areas; sutures in place. Per record sutures were placed 06/14. HEAD: Atraumatic. Normocephalic. CARDIOVASCULAR: Regular rate and rhythm. RESPIRATORY: No accessory muscle use. Clear to auscultation. Breath sounds equal bilaterally. GASTROINTESTINAL: Abdomen soft, non-tender, non-distended. Positive bowel sounds. MUSCULOSKELETAL: Extremities without clubbing, cyanosis, or edema. No obvious deformities. NEUROLOGICAL: Awake and alert. No obvious cranial nerve deficits. Motor grossly within normal limits. Normal speech. PSYCHIATRIC: A&O3; but questionable if she has adequate insight and judgment to care for herself. Results Procedures completed during hospitalization: NONE Completed studies during hospitalization: Laboratory Results WBC 8.6 th/mm3 (4.0-11.0) 07/08/18 06:03 RBC 3.04 mil/mm3 (4.00-5.30) L 07/08/18 06:03 Hgb 9.2 gm/dL (11.6-15.3) L 07/08/18 06:03 Hct 26.6 % (35.0-46.0) L 07/08/18 06:03 MCV 87.7 fL (80.0-100.0) 07/08/18 06:03 MCH 30.2 pg (27.0-34.0) 07/08/18 06:03 MCHC 34.5 % (32.0-36.0) 07/08/18 06:03 RDW 16.2 % (11.6-17.2) 07/08/18 06:03 Plt Count 137 th/mm3 (150-450) L 07/08/18 06:03 MPV 6.4 fL (7.0-11.0) L 07/08/18 06:03 Neut % (Auto) 84.2 % (16.0-70.0) H 07/08/18 06:03 Lymph % (Auto) 9.7 % (9.0-44.0) 07/08/18 06:03 [place] % (Auto) 5.5 % (0.0-8.0) 07/08/18 06:03 Eos % (Auto) 0.2 % (0.0-4.0) 07/08/18 06:03 Baso % (Auto) 0.4 % (0.0-2.0) 07/08/18 06:03 Neut # (Auto) 7.3 th/mm3 (1.8-7.7) 07/08/18 06:03 Lymph # (Auto) 0.8 th/mm3 (1.0-4.8) L 07/08/18 06:03 [place] # (Auto) 0.5 th/mm3 (0.0-0.9) 07/08/18 06:03 Eos # (Auto) 0.0 th/mm3 (0.0-0.4) 07/08/18 06:03 Baso # (Auto) 0.0 th/mm3 (0.0-0.2) 07/08/18 06:03 WBC Differential . 07/08/18 06:03 Differential Comment Auto diff final 07/08/18 06:03 Sodium 134 meq/L (136-145) L 07/08/18 06:03 Potassium 3.4 meq/L (3.5-5.1) L 07/08/18 06:03 Chloride 104 meq/L (98-107) 07/08/18 06:03 Carbon Dioxide 17.7 meq/L (21.0-32.0) L 07/08/18 06:03 Anion Gap 12 meq/L (5-15) 07/08/18 06:03 BUN 10 mg/dL (7-18) 07/08/18 06:03 Creatinine 0.87 mg/dL (0.50-1.00) 07/08/18 06:03 Estimated GFR 64 mL/min (>89) L 07/08/18 06:03 Random Glucose 87 mg/dL (74-106) 07/08/18 06:03 Calcium 7.4 mg/dL (8.5-10.1) L* 07/08/18 06:03 Prot Corrected Calcium 8.3 mg/dL (8.5-10.1) L 07/08/18 06:03 Magnesium 1.9 mg/dL (1.5-2.5) 07/06/18 21:35 Total Bilirubin 0.7 mg/dL (0.2-1.0) 07/08/18 06:03 AST 251 U/L (15-37) H 07/08/18 06:03 ALT 118 U/L (10-53) H 07/08/18 06:03 Alkaline Phosphatase 94 U/L (45-117) 07/08/18 06:03 Total Creatine Kinase 24 U/L (26-192) L 07/06/18 21:35 Troponin I Less than 0.02 ng/mL (0.02-0.05) L 07/06/18 21:35 Total Protein 5.4 g/dL (6.4-8.2) L D 07/08/18 06:03 Albumin 2.1 g/dL (3.4-5.0) L 07/08/18 06:03 Urine Color Yellow (Yellw/Straw) 07/07/18 01:15 Urine Clarity Hazy (Clear) H 07/07/18 01:15 Urine pH 5.0 (5.0-8.5) 07/07/18 01:15 Ur Specific [place] 1.008 (1.002-1.035) 07/07/18 01:15 Urine Protein Negative mg/dL (Neg-Trace) 07/07/18 01:15 Urine Glucose (UA) Negative mg/dL (Negative) 07/07/18 01:15 Urine Ketones Negative mg/dL (Negative) 07/07/18 01:15 Urine Occult Blood Negative (Negative) 07/07/18 01:15 Urine Nitrate Negative (Negative) 07/07/18 01:15 Urine Bilirubin Negative (Negative) 07/07/18 01:15 Urine Urobilinogen 2.0 mg/dL (Less than 2) H 07/07/18 01:15 Ur Leukocyte Esterase Small (Negative) H 07/07/18 01:15 Urine RBC Less than 1 /hpf (0-3) 07/07/18 01:15 Urine WBC 7 /hpf (0-5) H 07/07/18 01:15 Ur Squamous Epith Cells 2 /hpf (0-5) 07/07/18 01:15 Urine Bacteria Rare /hpf (None) H 07/07/18 01:15 Urine Mucus Few /lpf (Occasional) H 07/07/18 01:15 Micro UA Comment Culture not ind 07/07/18 01:15 Ur Microscopic Review Not Reportable 07/07/18 01:15 Urine Culture Comments Culture not ind 07/07/18 01:15 Serum Alcohol Less than 3 mg/dL (0-5) 07/07/18 09:30 Hepatitis A IgM Ab Nonreactive (Nonreactive) 07/07/18 09:30 Hep Bs Antigen Nonreactive (Nonreactive) 07/07/18 09:30 Hep B Core IgM Ab Nonreactive (Nonreactive) 07/07/18 09:30 Hep C IgG Ab Reactive (Nonreactive) H 07/07/18 09:[address] 07/06/18 21:30 CONCLUSION: 1. No acute intracranial abnormality. 2. Chronic white matter changes. . - Impressions ITS Impressions Head CT 07/06/18 21:30 CONCLUSION: 1. No acute intracranial abnormality. 2. Chronic white matter changes. . Discharge Plan - Discharge Disposition Patient Disposition: Discharge to SNF - Discharge Condition Condition: Stable - Discharge Order Discharge Orders: Discharge Order (Routine); Ordered 07/09/18 Ordered By: Coleman Braga - Discharge Details Anticipated Discharge Date: 07/09/18 Discharge Comment: DC TO SNF WHEN BED AVAILABLE - Physicians Team Primary Care Provider: Fahad Laguna Attending Provider: Colemna Braga
[2018-07-09] MEDS: traZODone 50 MG Tablet PO SCH (20:51)
[2018-07-10 03:13] VITALS: PULSE 60
[2018-07-10] MEDS: hydrALAZINE 25 MG Tablet PO SCH ×2 (05:33→13:23)
[2018-07-10] MEDS: Levothyroxine 100 MCG Tablet PO SCH (05:34)
[2018-07-10] MEDS: Sod Chloride 0.9% Inj 1,000 ML IV.CONT SCH ×2 (06:06→10:36)
[2018-07-10 08:17] LABS: Baso % (Auto) 0.3 % (0.0-2.0); Eos % (Auto) 0.3 % (0.0-4.0); Hematocrit 28.4 % (35.0-46.0); Hemoglobin 9.9 gm/dL (11.6-15.3); INR 1.2 Ratio; Lymph # (Auto) 0.7 th/mm3 (1.0-4.8); Lymph % (Auto) 9.3 % (9.0-44.0); Mean Corpuscular Hemoglobin 30.3 pg (27.0-34.0); Mean Corpuscular Volume 86.6 fL (80.0-100.0); Mean Platelet Volume 6.6 fL (7.0-11.0); Mono # (Auto) 0.4 th/mm3 (0.0-0.9); Mono % (Auto) 4.8 % (0.0-8.0); Neut # (Auto) 6.4 th/mm3 (1.8-7.7); Neut % (Auto) 85.3 % (16.0-70.0); Platelet Count 154 th/mm3 (150-450); Prothrombin Time 11.8 sec (9.8-11.6); Red Blood Count 3.28 mil/mm3 (4.00-5.30); Red Cell Distribution Width 16.2 % (11.6-17.2); White Blood Count 7.5 th/mm3 (4.0-11.0)
[2018-07-10] MEDS: Senna/Docusate Sodium 8.6/50 MG Tablet PO SCH (08:18)
[2018-07-10] MEDS: Lisinopril 20 MG Tablet PO SCH (08:18)
[2018-07-10] MEDS: Carvedilol 12.5 MG Tablet PO SCH (08:18)
[2018-07-10] MEDS: amLODIPine 10 MG Tablet PO SCH (08:18)
[2018-07-10 08:59] LABS: Albumin 2.1 g/dL (3.4-5.0); Anion Gap 8 meq/L (5-15); Aspartate Aminotransferase 135 U/L (15-37); Blood Urea Nitrogen 10 mg/dL (7-18); Calcium 8.1 mg/dL (8.5-10.1); Carbon Dioxide 21.7 meq/L (21.0-32.0); Chloride 103 meq/L (98-107); Glomerular Filtration Rate 63 mL/min (>89); Glucose,Random 82 mg/dL (74-106); Magnesium 1.9 mg/dL (1.5-2.5); Potassium 4.4 meq/L (3.5-5.1); Sodium 133 meq/L (136-145)
[2018-07-10 09:01] LABS: Alanine Aminotransferase 91 U/L (10-53); Alkaline Phosphatase 90 U/L (45-117); Free T4 (Free Thyroxine) 0.93 ng/dL (0.76-1.46); Total Protein 5.7 g/dL (6.4-8.2)
[2018-07-10 09:52] VITALS: RESP 20; O2SAT 97
[2018-07-10 09:58] LABS: Hemoglobin A1c 4.7 % (4.3-6.0)
--- NOTE | 2018-07-10 10:14 | P.PNIM ---
Subjective Interval history: This is a 73-year-old female with a PMH of HTN, CAD, Dementia, Pacemaker, h/o Traumatic ICH and Left Scalp Hematoma who was brought to the ER by Daughter for near syncopal event. Pt w/ previous admit 06/01-06/02/18 for fall w/ small hemorrhagic contusion left parietal lobe and large left scalp hematoma on CT Head, had pacer interrogated at that time w/ no events noted, s/p eval by Neurosurgery and discharged home. Re-admitted 06/11-06/29/18 for bleeding from scalp hematoma, s/p scalp rotation flap by Plastic Surgery 06/14/18, +anemia w/ Hgb 6.8 requiring transfusion, also noted to have episodes of confusion and behavioral disturbances, s/p eval by neurobehavioral medicine w/ recommendations for rehab and outpatient psych referral. Discharged from Rehab today, daughter was helping her get out of the car when pt c/o lightheadedness, had near syncopal event. Pt w/ little recollection of events. Does note decreased PO intake the last several days. On arrival, BP 84/52, HR 62, O2 sat 100% on RA, Afebrile. CBC essentially unremarkable. Creatinine 1.27, previously 0.89 on 06/28/2018. Trop negative. U/a negative for UTI. CT Head w/ no acute findings. 9-15 Patient is seen sitting up in bed. She denies any chest pain or shortness of breath. No further episodes of syncope. No dizziness, headache or changes in vision. Denies any abdominal pain or changes in stool. Reports that she has a history of hep C that was treated. She would like to know when she can get the stitches out of her head because they are itchy. 9-16 Patient is seen sitting up in bed. She is pleasant and answers questions however it is obvious that she is somewhat confused and a poor historian. Nursing denies any adverse events overnight. 9-17 PROBABLY NEEDS TO GO TO SNF WILL ASK CASE MANAGEMENT FOR PLACEMENT MEDS ADJUSTED AM LABS IF STILL HERE 18 AWAIT APPROVAL FOR [facility] PAPERWORK DONE TSH IS INCREASE WILL INCREASE SYNTHROID TO 200MCG PO DAILY DW RN AND PT AND CM ACTUALLY TO GO TO [facility] TODAY Physical Exam Vital signs: Vital Signs 07/09/18 12:00 07/09/18 16:00 07/09/18 20:00 Temperature 97.8 F 98.6 F 98.2 F Pulse Rate 60 60 60 Respiratory Rate 16 18 16 Blood Pressure 121/60 117/57 L 126/60 Pulse Oximetry 97 96 96 07/10/18 00:00 07/10/18 03:11 07/10/18 06:52 Temperature 98.2 F 98.7 F Pulse Rate 68 60 Respiratory Rate 18 18 12 Blood Pressure 106/56 L 113/55 L Pulse Oximetry 94 L 95 07/10/18 08:00 Temperature 97.3 F L Pulse Rate 60 Respiratory Rate 20 Blood Pressure 118/65 Pulse Oximetry 97 Intake & Output 07/09/18 07/10/18 07/10/18 18:59 06:59 18:59 Weight 61.5 kg Other: # Voids 3 1 Date of Last Bowel Movement 07/07/18 07/10/18 Narrative: GENERAL: Well-nourished, well-developed adult female in no obvious distress. SKIN: Warm and dry. Postsurgical wound on scalp. Generally well healed but with some crusting obscuring areas; sutures in place. Per record sutures were placed 06/14. HEAD: Atraumatic. Normocephalic. CARDIOVASCULAR: Regular rate and rhythm. RESPIRATORY: No accessory muscle use. Clear to auscultation. Breath sounds equal bilaterally. GASTROINTESTINAL: Abdomen soft, non-tender, non-distended. Positive bowel sounds. MUSCULOSKELETAL: Extremities without clubbing, cyanosis, or edema. No obvious deformities. NEUROLOGICAL: Awake and alert. No obvious cranial nerve deficits. Motor grossly within normal limits. Normal speech. PSYCHIATRIC: A&O3; but questionable if she has adequate insight and judgment to care for herself. Results - Labs CBC & Chem 7: 07/10/18 07:05 07/10/18 07:05 Laboratory Results - last 24 hr 07/10/18 07/10/18 07/10/18 07:05 07:05 07:05 WBC 7.5 RBC 3.28 L Hgb 9.9 L Hct 28.4 L MCV 86.6 MCH 30.3 MCHC 35.0 RDW 16.2 Plt Count 154 MPV 6.6 L Neut % (Auto) 85.3 H Lymph % (Auto) 9.3 [place] % (Auto) 4.8 Eos % (Auto) 0.3 Baso % (Auto) 0.3 Neut # (Auto) 6.4 Lymph # (Auto) 0.7 L [place] # (Auto) 0.4 Eos # (Auto) 0.0 Baso # (Auto) 0.0 WBC Differential . Differential Comment Auto diff final PT 11.8 H INR 1.2 Sodium 133 L Potassium 4.4 Chloride 103 Carbon Dioxide 21.7 Anion Gap 8 BUN 10 Creatinine 0.89 Estimated GFR 63 L Random Glucose 82 Calcium 8.1 L Phosphorus 3.0 Magnesium 1.9 Total Bilirubin 0.7 AST 135 H ALT 91 H Alkaline Phosphatase 90 Total Protein 5.7 L Albumin 2.1 L TSH 42.800 H Free T4 0.93 - Imaging ITS Impressions Head CT 07/06/18 21:30 CONCLUSION: 1. No acute intracranial abnormality. 2. Chronic white matter changes. . - Procedures NONE Assessment and Plan - Assessment (1) Near syncope Code(s): R55 - Syncope and collapse Status: Acute (2) CHRISTI (acute kidney injury) Code(s): N17.9 - Acute kidney failure, unspecified Status: Acute (3) H/O intracranial hemorrhage Code(s): Z86.79 - Personal history of other diseases of the circulatory system Status: Acute - Plan This is a 73-year-old female with a PMH of HTN, CAD, Dementia, Pacemaker, h/o Traumatic ICH and Left Scalp Hematoma who was brought to the ER by Daughter for near syncopal event. Dehydration/hypotension; acute; -Near Syncope likely secondary to dehydration/hypotension, now improved after IVF. -No LOC or head trauma, CT Head w/ no acute findings. -PT for eval/tx. CHRISTI: -Improving with IVF. Monitor labs -Avoid nephrotoxins h/o ICH: -previous admit w/ fall, small ICH and large scalp hematoma, re-admitted for bleeding from scalp hematoma, s/p scalp rotation flap by Plastic Surgery 06/14/18 , healing well. -Order placed for suture removal Elevated liver enzymes -History of hep C; treated. RNA PCR negative -Chronic elevation now significantly worse. Repeat labs to evaluate trend - improving; continue to monitor.. -Liver ultrasound done 06/18 indicated chronic cholecystitis with non-shadowing stone versus debris is in the gallbladder. Liver was normal. -Negative for EtOH at admit. DVT Prophylaxis: SCD/Teds AWAIT [facility] TODAY-- APPROVAL Code Status: FULL CODE Discussed Condition With: RN AND CM AND PT Discharge Planning: [facility] PROBABLY FOR SAFETY IF AVAILABLE
[2018-07-10] MEDS ORDERED: Levothyroxine 100 MCG Tablet PO ONE (10:30)
[2018-07-10] MEDS ORDERED: Levothyroxine 100 MCG Tablet PO SCH (10:30)
--- NOTE | 2018-07-10 11:36 | P.DS ---
Date of admission: 07/07/18 12:48 Primary care physician: Fahad Laguna Attending physician on discharge: Coleman Braga Anticipated date of discharge: 07/09/18 Brief History from admission: This is a 73-year-old female with a PMH of HTN, CAD, Dementia, Pacemaker, h/o Traumatic ICH and Left Scalp Hematoma who was brought to the ER by Daughter for near syncopal event. Pt w/ previous admit 06/01-06/02/18 for fall w/ small hemorrhagic contusion left parietal lobe and large left scalp hematoma on CT Head, had pacer interrogated at that time w/ no events noted, s/p eval by Neurosurgery and discharged home. Re-admitted 06/11-06/29/18 for bleeding from scalp hematoma, s/p scalp rotation flap by Plastic Surgery 06/14/18, +anemia w/ Hgb 6.8 requiring transfusion, also noted to have episodes of confusion and behavioral disturbances, s/p eval by neurobehavioral medicine w/ recommendations for rehab and outpatient psych referral. Discharged from Rehab today, daughter was helping her get out of the car when pt c/o lightheadedness, had near syncopal event. Pt w/ little recollection of events. Does note decreased PO intake the last several days. On arrival, BP 84/52, HR 62, O2 sat 100% on RA, Afebrile. CBC essentially unremarkable. Creatinine 1.27, previously 0.89 on 06/28/2018. Trop negative. U/a negative for UTI. CT Head w/ no acute findings. Patient update on day of discharge: This is a 73-year-old female with a PMH of HTN, CAD, Dementia, Pacemaker, h/o Traumatic ICH and Left Scalp Hematoma who was brought to the ER by Daughter for near syncopal event. Pt w/ previous admit 06/01-06/02/18 for fall w/ small hemorrhagic contusion left parietal lobe and large left scalp hematoma on CT Head, had pacer interrogated at that time w/ no events noted, s/p eval by Neurosurgery and discharged home. Re-admitted 06/11-06/29/18 for bleeding from scalp hematoma, s/p scalp rotation flap by Plastic Surgery 06/14/18, +anemia w/ Hgb 6.8 requiring transfusion, also noted to have episodes of confusion and behavioral disturbances, s/p eval by neurobehavioral medicine w/ recommendations for rehab and outpatient psych referral. Discharged from Rehab today, daughter was helping her get out of the car when pt c/o lightheadedness, had near syncopal event. Pt w/ little recollection of events. Does note decreased PO intake the last several days. On arrival, BP 84/52, HR 62, O2 sat 100% on RA, Afebrile. CBC essentially unremarkable. Creatinine 1.27, previously 0.89 on 06/28/2018. Trop negative. U/a negative for UTI. CT Head w/ no acute findings. 915 Patient is seen sitting up in bed. She denies any chest pain or shortness of breath. No further episodes of syncope. No dizziness, headache or changes in vision. Denies any abdominal pain or changes in stool. Reports that she has a history of hep C that was treated. She would like to know when she can get the stitches out of her head because they are itchy. 916 Patient is seen sitting up in bed. She is pleasant and answers questions however it is obvious that she is somewhat confused and a poor historian. Nursing denies any adverse events overnight. 917 PROBABLY NEEDS TO GO TO SNF WILL ASK CASE MANAGEMENT FOR PLACEMENT MEDS ADJUSTED AM LABS IF STILL HERE 918 AWAIT APPROVAL FOR [facility] PAPERWORK DONE TSH IS INCREASE WILL INCREASE SYNTHROID TO 200MCG PO DAILY DW RN AND PT AND CM ACTUALLY TO GO TO [facility] TODAY DS: Diagnosis - Discharge Diagnosis (1) Near syncope Status: Acute (2) CHRISTI (acute kidney injury) Status: Acute (3) H/O intracranial hemorrhage Status: Acute DS: Medications - Discharge Medications Prescriptions: amlodipine [Norvasc] 10 mg PO DAILY #31 tab carvedilol [Coreg] 12.5 mg PO BID #62 tab hydralazine 75 mg PO Q8HR #360 tab lactulose 30 ml PO DAILY PRN #1 bottle PRN Reason: Severe Consitipation levothyroxine [Synthroid] 200 mcg PO DAILY@0600 #30 tab levothyroxine [Synthroid] 200 mcg PO DAILY@0600 #60 tab lisinopril 40 mg PO DAILY #62 tab sennosides-docusate sodium [Senna Plus] 2 tab PO BID #120 tab trazodone 25 mg PO HS #30 tab DS: Summary Hospital Course: This is a 73-year-old female with a PMH of HTN, CAD, Dementia, Pacemaker, h/o Traumatic ICH and Left Scalp Hematoma who was brought to the ER by Daughter for near syncopal event. Pt w/ previous admit 06/01-06/02/18 for fall w/ small hemorrhagic contusion left parietal lobe and large left scalp hematoma on CT Head, had pacer interrogated at that time w/ no events noted, s/p eval by Neurosurgery and discharged home. Re-admitted 06/11-06/29/18 for bleeding from scalp hematoma, s/p scalp rotation flap by Plastic Surgery 06/14/18, +anemia w/ Hgb 6.8 requiring transfusion, also noted to have episodes of confusion and behavioral disturbances, s/p eval by neurobehavioral medicine w/ recommendations for rehab and outpatient psych referral. Discharged from Rehab today, daughter was helping her get out of the car when pt c/o lightheadedness, had near syncopal event. Pt w/ little recollection of events. Does note decreased PO intake the last several days. On arrival, BP 84/52, HR 62, O2 sat 100% on RA, Afebrile. CBC essentially unremarkable. Creatinine 1.27, previously 0.89 on 06/28/2018. Trop negative. U/a negative for UTI. CT Head w/ no acute findings. 9-15 Patient is seen sitting up in bed. She denies any chest pain or shortness of breath. No further episodes of syncope. No dizziness, headache or changes in vision. Denies any abdominal pain or changes in stool. Reports that she has a history of hep C that was treated. She would like to know when she can get the stitches out of her head because they are itchy. 9-16 Patient is seen sitting up in bed. She is pleasant and answers questions however it is obvious that she is somewhat confused and a poor historian. Nursing denies any adverse events overnight. 9-17 PROBABLY NEEDS TO GO TO SNF WILL ASK CASE MANAGEMENT FOR PLACEMENT MEDS ADJUSTED AM LABS IF STILL HERE 9-18 AWAIT APPROVAL FOR [facility] PAPERWORK DONE TSH IS INCREASE WILL INCREASE SYNTHROID TO 200MCG PO DAILY DW RN AND PT AND CM ACTUALLY TO GO TO [facility] TODAY - Time Spent with Patient Total time spent providing and/or coordinating discharge services: Greater than 30 minutes - Quality: VTE Deep Vein Thrombosis/Pulmonary Embolism Present on Admission: No Exam Vital signs: Vital Signs 07/09/18 12:00 07/09/18 16:00 07/09/18 20:00 Temperature 97.8 F 98.6 F 98.2 F Pulse Rate 60 60 60 Respiratory Rate 16 18 16 Blood Pressure 121/60 117/57 L 126/60 Pulse Oximetry 97 96 96 07/10/18 00:00 07/10/18 03:11 07/10/18 06:52 Temperature 98.2 F 98.7 F Pulse Rate 68 60 Respiratory Rate 18 18 12 Blood Pressure 106/56 L 113/55 L Pulse Oximetry 94 L 95 07/10/18 08:00 Temperature 97.3 F L Pulse Rate 60 Respiratory Rate 20 Blood Pressure 118/65 Pulse Oximetry 97 Intake & Output 07/09/18 07/10/18 07/10/18 18:59 06:59 18:59 Weight 61.5 kg Other: # Voids 3 1 Date of Last Bowel Movement 07/07/18 07/10/18 Narrative: GENERAL: Well-nourished, well-developed adult female in no obvious distress. SKIN: Warm and dry. Postsurgical wound on scalp. Generally well healed but with some crusting obscuring areas; sutures in place. Per record sutures were placed 06/14. HEAD: Atraumatic. Normocephalic. CARDIOVASCULAR: Regular rate and rhythm. RESPIRATORY: No accessory muscle use. Clear to auscultation. Breath sounds equal bilaterally. GASTROINTESTINAL: Abdomen soft, non-tender, non-distended. Positive bowel sounds. MUSCULOSKELETAL: Extremities without clubbing, cyanosis, or edema. No obvious deformities. NEUROLOGICAL: Awake and alert. No obvious cranial nerve deficits. Motor grossly within normal limits. Normal speech. PSYCHIATRIC: A&O3; but questionable if she has adequate insight and judgment to care for herself. Results Procedures completed during hospitalization: NONE Completed studies during hospitalization: Laboratory Results WBC 7.5 th/mm3 (4.0-11.0) 07/10/18 07:05 RBC 3.28 mil/mm3 (4.00-5.30) L 07/10/18 07:05 Hgb 9.9 gm/dL (11.6-15.3) L 07/10/18 07:05 Hct 28.4 % (35.0-46.0) L 07/10/18 07:05 MCV 86.6 fL (80.0-100.0) 07/10/18 07:05 MCH 30.3 pg (27.0-34.0) 07/10/18 07:05 MCHC 35.0 % (32.0-36.0) 07/10/18 07:05 RDW 16.2 % (11.6-17.2) 07/10/18 07:05 Plt Count 154 th/mm3 (150-450) 07/10/18 07:05 MPV 6.6 fL (7.0-11.0) L 07/10/18 07:05 Neut % (Auto) 85.3 % (16.0-70.0) H 07/10/18 07:05 Lymph % (Auto) 9.3 % (9.0-44.0) 07/10/18 07:05 Wake % (Auto) 4.8 % (0.0-8.0) 07/10/18 07:05 Eos % (Auto) 0.3 % (0.0-4.0) 07/10/18 07:05 Baso % (Auto) 0.3 % (0.0-2.0) 07/10/18 07:05 Neut # (Auto) 6.4 th/mm3 (1.8-7.7) 07/10/18 07:05 Lymph # (Auto) 0.7 th/mm3 (1.0-4.8) L 07/10/18 07:05 Wake # (Auto) 0.4 th/mm3 (0.0-0.9) 07/10/18 07:05 Eos # (Auto) 0.0 th/mm3 (0.0-0.4) 07/10/18 07:05 Baso # (Auto) 0.0 th/mm3 (0.0-0.2) 07/10/18 07:05 WBC Differential . 07/10/18 07:05 Differential Comment Auto diff final 07/10/18 07:05 PT 11.8 sec (9.8-11.6) H 07/10/18 07:05 INR 1.2 Ratio 07/10/18 07:05 Sodium 133 meq/L (136-145) L 07/10/18 07:05 Potassium 4.4 meq/L (3.5-5.1) 07/10/18 07:05 Chloride 103 meq/L (98-107) 07/10/18 07:05 Carbon Dioxide 21.7 meq/L (21.0-32.0) 07/10/18 07:05 Anion Gap 8 meq/L (5-15) 07/10/18 07:05 BUN 10 mg/dL (7-18) 07/10/18 07:05 Creatinine 0.89 mg/dL (0.50-1.00) 07/10/18 07:05 Estimated GFR 63 mL/min (>89) L 07/10/18 07:05 Random Glucose 82 mg/dL (74-106) 07/10/18 07:05 Hemoglobin A1c 4.7 % (4.3-6.0) 07/10/18 07:05 Calcium 8.1 mg/dL (8.5-10.1) L 07/10/18 07:05 Prot Corrected Calcium 8.3 mg/dL (8.5-10.1) L 07/08/18 06:03 Phosphorus 3.0 mg/dL (2.5-4.9) 07/10/18 07:05 Magnesium 1.9 mg/dL (1.5-2.5) 07/10/18 07:05 Total Bilirubin 0.7 mg/dL (0.2-1.0) 07/10/18 07:05 AST 135 U/L (15-37) H 07/10/18 07:05 ALT 91 U/L (10-53) H 07/10/18 07:05 Alkaline Phosphatase 90 U/L (45-117) 07/10/18 07:05 Total Creatine Kinase 24 U/L (26-192) L 07/06/18 21:35 Troponin I Less than 0.02 ng/mL (0.02-0.05) L 07/06/18 21:35 Total Protein 5.7 g/dL (6.4-8.2) L 07/10/18 07:05 Albumin 2.1 g/dL (3.4-5.0) L 07/10/18 07:05 TSH 42.800 uIU/mL (0.358-3.740) H 07/10/18 07:05 Free T4 0.93 ng/dL (0.76-1.46) 07/10/18 07:05 Urine Color Yellow (Yellw/Straw) 07/07/18 01:15 Urine Clarity Hazy (Clear) H 07/07/18 01:15 Urine pH 5.0 (5.0-8.5) 07/07/18 01:15 Ur Specific [place] 1.008 (1.002-1.035) 07/07/18 01:15 Urine Protein Negative mg/dL (Neg-Trace) 07/07/18 01:15 Urine Glucose (UA) Negative mg/dL (Negative) 07/07/18 01:15 Urine Ketones Negative mg/dL (Negative) 07/07/18 01:15 Urine Occult Blood Negative (Negative) 07/07/18 01:15 Urine Nitrate Negative (Negative) 07/07/18 01:15 Urine Bilirubin Negative (Negative) 07/07/18 01:15 Urine Urobilinogen 2.0 mg/dL (Less than 2) H 07/07/18 01:15 Ur Leukocyte Esterase Small (Negative) H 07/07/18 01:15 Urine RBC Less than 1 /hpf (0-3) 07/07/18 01:15 Urine WBC 7 /hpf (0-5) H 07/07/18 01:15 Ur Squamous Epith Cells 2 /hpf (0-5) 07/07/18 01:15 Urine Bacteria Rare /hpf (None) H 07/07/18 01:15 Urine Mucus Few /lpf (Occasional) H 07/07/18 01:15 Micro UA Comment Culture not ind 07/07/18 01:15 Ur Microscopic Review Not Reportable 07/07/18 01:15 Urine Culture Comments Culture not ind 07/07/18 01:15 Serum Alcohol Less than 3 mg/dL (0-5) 07/07/18 09:30 Hepatitis A IgM Ab Nonreactive (Nonreactive) 07/07/18 09:30 Hep Bs Antigen Nonreactive (Nonreactive) 07/07/18 09:30 Hep B Core IgM Ab Nonreactive (Nonreactive) 07/07/18 09:30 Hep C IgG Ab Reactive (Nonreactive) H 07/07/18 09:[address] 07/06/18 21:30 CONCLUSION: 1. No acute intracranial abnormality. 2. Chronic white matter changes. . Labs on day of discharge: Labs from last 24 hours 07/10/18 07/10/18 07/10/18 07:05 07:05 07:05 WBC RBC Hgb Hct MCV MCH MCHC RDW Plt Count MPV Neut % (Auto) Lymph % (Auto) Wake % (Auto) Eos % (Auto) Baso % (Auto) Neut # (Auto) Lymph # (Auto) Wake # (Auto) Eos # (Auto) Baso # (Auto) WBC Differential Differential Comment PT 11.8 H INR 1.2 Sodium 133 L Potassium 4.4 Chloride 103 Carbon Dioxide 21.7 Anion Gap 8 BUN 10 Creatinine 0.89 Estimated GFR 63 L Random Glucose 82 Hemoglobin A1c 4.7 Calcium 8.1 L Phosphorus 3.0 Magnesium 1.9 Total Bilirubin 0.7 AST 135 H ALT 91 H Alkaline Phosphatase 90 Total Protein 5.7 L Albumin 2.1 L TSH 42.800 H Free T4 0.93 07/10/18 07:05 WBC 7.5 RBC 3.28 L Hgb 9.9 L Hct 28.4 L MCV 86.6 MCH 30.3 MCHC 35.0 RDW 16.2 Plt Count 154 MPV 6.6 L Neut % (Auto) 85.3 H Lymph % (Auto) 9.3 Wake % (Auto) 4.8 Eos % (Auto) 0.3 Baso % (Auto) 0.3 Neut # (Auto) 6.4 Lymph # (Auto) 0.7 L Wake # (Auto) 0.4 Eos # (Auto) 0.0 Baso # (Auto) 0.0 WBC Differential . Differential Comment Auto diff final PT INR Sodium Potassium Chloride Carbon Dioxide Anion Gap BUN Creatinine Estimated GFR Random Glucose Hemoglobin A1c Calcium Phosphorus Magnesium Total Bilirubin AST ALT Alkaline Phosphatase Total Protein Albumin TSH Free T4 - Impressions ITS Impressions Head CT 07/06/18 21:30 CONCLUSION: 1. No acute intracranial abnormality. 2. Chronic white matter changes. . Discharge Plan - Discharge Disposition Patient Disposition: ACLF/ASSISTED - Discharge Condition Condition: Stable - Discharge Order Discharge Orders: Discharge Order (Routine); Ordered 07/09/18 Ordered By: Coleman Braga - Discharge Details Anticipated Discharge Date: 07/09/18 Discharge Comment: DC TO [facility] WHEN BED AVAILABLE - Physicians Team Primary Care Provider: Fahad Laguna Attending Provider: Coleman Braga [facility]iders: [facility]
[2018-07-10 12:47] VITALS: BP 127/59; TEMP 97.4
[2018-07-11] MEDS ORDERED: Levothyroxine 100 MCG Tablet PO SCH (06:00)
== END 2018-07-10 15:35 ==
LOC: NEDA 18:12 → NEPC 18:12 → NEDA 07-07 04:50 → NEPGCP 07-07 05:07 → N05 07-08 15:13
PROVIDERS: ADMIT Hospitalist; ATTEND Hospitalist